=== PATIENT | male | born 1965 | race Caucasian/White ===

== ENCOUNTER 2017-12-18 15:52 | Outpatient (REF) | payer MEDICAID, SELFPAY ==
[2017-12-20 12:30] LABS: Campylobacter PCR SEE COMMENTS; Salmonella PCR SEE COMMENTS; Shiga Toxin PCR SEE COMMENTS; Shigella/Enteroinvasive Ecoli SEE COMMENTS
== END 2017-12-18 15:53 ==
LOC: NCHCN 15:52
PROVIDERS: PCP Nurse Practitioner; Visit Provider Nurse Practitioner
DX: R19.7 Diarrhea, unspecified (principal); K76.0 Fatty (change of) liver, not elsewhere classified
CPT/HCPCS: 87329; 87505; 87177; 87324

== ENCOUNTER 2017-12-31 11:07 | Outpatient (REF) | payer MEDICAID, SELFPAY ==
[2017-12-31 13:49] LABS: Abs Immature Grans 0.04 k/cumm (0.0-0.09); Absolute Basophil Count 0.04 k/cumm (0.0-0.2); Absolute Eosinophil Count 0.58 k/cumm (0.0-0.7); Absolute Monocyte Count 1.12 k/cumm (0.11-0.7); Basophils % 0.3; HCT 43.4 % (40.0-50.0); HGB 14.6 g/dL (13.5-17.5); Immature Grans % 0.3; Lymphocytes % 23.5; Mean Corp. HGB Concentration 33.6 g/dL (32.0-36.0); Mean Corpuscular Hemoglobin 32.5 pg (27.0-33.0); Mean Corpuscular Volume 96.7 fL (80-95); Mean Platelet Volume 9.9 fL (8.0-11.0); Monocytes % 7.7; Neutrophils % 64.2; Platelet Count 285 x1000/uL (130-400); RBC 4.49 m/cumm (4.50-6.00); RBC Distribution Width 13.1 % (11.8-14.1); White Blood Cell Count 14.61 k/cumm (4.4-10.8)
[2017-12-31 13:50] LABS: Absolute Lymphocyte Count 3.43 k/cumm (1.2-3.4); Absolute Neutrophil Count 9.38 k/cumm (1.2-6.7)
[2017-12-31 14:48] LABS: ALT 27 U/L (12-78); AST 31 U/L (15-37); Albumin 4.2 g/dL (3.4-5.0); Alkaline Phosphatase 189 U/L (46-116); Anion Gap 9.8 mmol/L (3-11); BUN 13 mg/dL (7-18); Bilirubin, Total 0.3 mg/dL (0.2-1.0); CO2 26.2 mmol/L (21.0-32.0); CREATININE 0.81 mg/dL (0.70-1.30); Calcium 8.6 mg/dL (8.5-10.1); Chloride 98 mmol/L (98-107); Folate 17.3 ng/mL (8.6-20.0); Glucose 88 mg/dL (70-100); Magnesium 1.9 mg/dL (1.8-2.4); Potassium 4.5 mmol/L (3.5-5.1); Sodium 134 mmol/L (136-145); Total Protein 7.7 g/dL (6.4-8.2); Vitamin B12 457 pg/mL (193-986)
== END 2017-12-31 11:27 ==
LOC: NCHCN 11:07
PROVIDERS: PCP Nurse Practitioner; Visit Provider Nurse Practitioner
DX: F10.20 Alcohol dependence, uncomplicated (principal)
CPT/HCPCS: 80053; 82607; 82746; 83735; 85025

== ENCOUNTER 2018-01-09 14:19 | Outpatient (REF) | payer MEDICAID, SELFPAY ==
[2018-01-09 20:26] LABS: Abs Immature Grans 0.07 k/cumm (0.0-0.09); Absolute Eosinophil Count 0.82 k/cumm (0.0-0.7); Basophils % 0.3; Eosinophils % 4.7; HCT 42.5 % (40.0-50.0); HGB 14.5 g/dL (13.5-17.5); Immature Grans % 0.4; Lymphocytes % 23.1; Mean Corp. HGB Concentration 34.1 g/dL (32.0-36.0); Mean Corpuscular Hemoglobin 33.3 pg (27.0-33.0); Mean Corpuscular Volume 97.5 fL (80-95); Mean Platelet Volume 9.9 fL (8.0-11.0); Monocytes % 7.7; Neutrophils % 63.8; Platelet Count 303 x1000/uL (130-400); RBC 4.36 m/cumm (4.50-6.00); White Blood Cell Count 17.44 k/cumm (4.4-10.8)
[2018-01-09 20:27] LABS: Absolute Basophil Count 0.05 k/cumm (0.0-0.2); Absolute Lymphocyte Count 4.03 k/cumm (1.2-3.4); Absolute Monocyte Count 1.34 k/cumm (0.11-0.7); Absolute Neutrophil Count 11.13 k/cumm (1.2-6.7)
[2018-01-09 20:38] LABS: ALT 43 U/L (12-78); AST 55 U/L (15-37); Alkaline Phosphatase 181 U/L (46-116); Anion Gap 11.3 mmol/L (3-11); BUN 11 mg/dL (7-18); Bilirubin, Total 0.4 mg/dL (0.2-1.0); CO2 25.7 mmol/L (21.0-32.0); Calcium 8.5 mg/dL (8.5-10.1); Chloride 96 mmol/L (98-107); Glucose 80 mg/dL (70-100); Potassium 4.6 mmol/L (3.5-5.1); Sodium 133 mmol/L (136-145); Total Protein 7.3 g/dL (6.4-8.2)
== END 2018-01-09 14:39 ==
LOC: NCHCN 14:19
PROVIDERS: PCP Nurse Practitioner; Visit Provider Nurse Practitioner
DX: R61 Generalized hyperhidrosis (principal)
CPT/HCPCS: 80053; 85025

== ENCOUNTER 2018-01-12 16:47 | Outpatient (CLI) | payer MEDICAID, SELFPAY ==
[2018-01-12 17:56] LABS: Bilirubin Negative (Negative); Blood Negative (Negative); Clarity Clear; Glucose Negative (Negative); Ketones Negative (Negative); Leukocyte Esterase Negative (Negative); Nitrite Negative (Negative); Urobilinogen 0.2 EU/dL (Up TO 0.2)
[2018-01-12 18:52] LABS: Sodium, Urine 46 mmol/L
[2018-01-13 17:28] LABS: Osmolality Serum 321 mos/kg (275-295)
[2018-01-13 17:32] LABS: Osmolality, Urine 256 mos/kg (150-1150)
== END 2018-01-12 17:07 ==
PROVIDERS: PCP Nurse Practitioner; Visit Provider Nurse Practitioner
DX: E87.1 Hypo-osmolality and hyponatremia (principal); D72.829 Elevated white blood cell count, unspecified
CPT/HCPCS: 36410; 83935; 87040; 81003; 83930; 84300; 87086

== ENCOUNTER 2018-01-28 10:27 | Outpatient (CLI) | payer MEDICAID, SELFPAY ==
[2018-01-28 11:28] LABS: Abs Immature Grans 0.04 k/cumm (0.0-0.09); Absolute Basophil Count 0.03 k/cumm (0.0-0.2); Absolute Lymphocyte Count 3.38 k/cumm (1.2-3.4); Basophils % 0.2; Eosinophils % 4.9; HCT 43.5 % (40.0-50.0); Immature Grans % 0.3; Lymphocytes % 25.3; Mean Corp. HGB Concentration 34.5 g/dL (32.0-36.0); Mean Corpuscular Hemoglobin 32.6 pg (27.0-33.0); Mean Corpuscular Volume 94.6 fL (80-95); Mean Platelet Volume 9.3 fL (8.0-11.0); Monocytes % 7.3; Platelet Count 270 x1000/uL (130-400); RBC Distribution Width 12.9 % (11.8-14.1); White Blood Cell Count 13.34 k/cumm (4.4-10.8)
[2018-01-28 11:29] LABS: Absolute Eosinophil Count 0.65 k/cumm (0.0-0.7); Absolute Monocyte Count 0.97 k/cumm (0.11-0.7); Absolute Neutrophil Count 8.27 k/cumm (1.2-6.7)
[2018-01-28 12:31] LABS: ALT 85 U/L (12-78); AST 142 U/L (15-37); Albumin 3.8 g/dL (3.4-5.0); Alkaline Phosphatase 184 U/L (46-116); Anion Gap 10.1 mmol/L (3-11); BUN 10 mg/dL (7-18); Bilirubin, Total 0.4 mg/dL (0.2-1.0); CO2 25.9 mmol/L (21.0-32.0); CREATININE 0.77 mg/dL (0.70-1.30); Calcium 8.3 mg/dL (8.5-10.1); Chloride 100 mmol/L (98-107); GGT 188 U/L (15-85); Glucose 114 mg/dL (70-100); Potassium 4.6 mmol/L (3.5-5.1); Sodium 136 mmol/L (136-145); Total Protein 7.2 g/dL (6.4-8.2)
[2018-01-30 12:37] LABS: TB Interpretation Negative (NEGAT)
== END 2018-01-28 10:47 ==
PROVIDERS: PCP Nurse Practitioner; Visit Provider Nurse Practitioner
DX: R74.8 Abnormal levels of other serum enzymes (principal); R61 Generalized hyperhidrosis; D72.829 Elevated white blood cell count, unspecified; Z12.5 Encounter for screening for malignant neoplasm of prostate
CPT/HCPCS: 36415; 80053; 84153; 82977; 85025; 86480; 87556

== ENCOUNTER 2018-02-05 10:55 | Outpatient (CLI) | payer MEDICAID, SELFPAY ==
--- NOTE | 2018-02-05 08:08 | DI.US_ITS ---
SYMPTOM/DIAGNOSIS: DIARRHEA, LOSS OF APPETITE, HEAVY ALCOHOL USE, R19.7 ABDOMEN AND PELVIC ULTRASOUND: The aorta and vena cava are normal. There is a somewhat enlarged, slightly nodular liver. No focal abnormality is seen. The findings could certainly represent cirrhosis. The gallbladder is unremarkable. There are no stones or ductal dilatation. The head and tail of the pancreas are poorly visualized. The pancreatic body appears intact. The spleen is top limits of normal in size. The kidneys are intact. A small quantity of free fluid is identified in the pelvis. SUMMARY: An enlarged, somewhat nodular liver is demonstrated. The findings consistent with cirrhosis. The spleen is top limits of normal in size. Note is made of a small quantity of free fluid identified in the pelvic region.
== END 2018-02-05 11:15 ==
PROVIDERS: PCP Nurse Practitioner; Visit Provider Surgery
DX: R19.7 Diarrhea, unspecified (principal); R63.0 Anorexia; R16.2 Hepatomegaly with splenomegaly, not elsewhere classified; F10.10 Alcohol abuse, uncomplicated; K74.60 Unspecified cirrhosis of liver
CPT/HCPCS: 76700; 76856

== ENCOUNTER 2018-03-17 01:11 | Outpatient (CLI) | payer MEDICAID, SELFPAY ==
[2018-03-17 08:29] LABS: HCT 39.9 % (40.0-50.0); HGB 13.6 g/dL (13.5-17.5); Mean Corp. HGB Concentration 34.1 g/dL (32.0-36.0); Mean Corpuscular Hemoglobin 31.9 pg (27.0-33.0); Mean Corpuscular Volume 93.7 fL (80-95); Mean Platelet Volume 9.8 fL (8.0-11.0); Platelet Count 308 x1000/uL (130-400); RBC 4.26 m/cumm (4.50-6.00); RBC Distribution Width 13.8 % (11.8-14.1); White Blood Cell Count 14.04 k/cumm (4.4-10.8)
[2018-03-17 08:43] LABS: ALT 33 U/L (12-78); AST 18 U/L (15-37); Albumin 3.7 g/dL (3.4-5.0); Alkaline Phosphatase 141 U/L (46-116); Anion Gap 10.5 mmol/L (3-11); BUN 12 mg/dL (7-18); Bilirubin, Total 0.3 mg/dL (0.2-1.0); CO2 26.5 mmol/L (21.0-32.0); CREATININE 0.71 mg/dL (0.70-1.30); Calcium 8.9 mg/dL (8.5-10.1); Chloride 100 mmol/L (98-107); Glucose 115 mg/dL (70-100); Potassium 4.3 mmol/L (3.5-5.1); Sodium 137 mmol/L (136-145); Total Protein 7.6 g/dL (6.4-8.2)
[2018-03-17 08:44] LABS: Absolute Neutrophil Count 9.55 k/cumm (1.2-6.7)
[2018-03-17 08:45] LABS: Absolute Eosinophil Count 1.12 k/cumm (0.0-0.7); Absolute Lymphocyte Count 2.67 k/cumm (1.2-3.4); Atypical Lymphocytes % 5; Diff Comment Manual Differential; RBC Morphology Normal
[2018-03-17 09:01] LABS: D-Dimer 659 ng/mlFEU (<500)
--- NOTE | 2018-03-17 09:53 | DI.RAD_ITS ---
SYMPTOM/DIAGNOSIS: DYSPNEA ON EXERTION, R06.09 PA AND LATERAL CHEST: Comparison is made with 14 Sep 2017. The lungs are mildly hyperinflated. The lungs are clear. No infiltrate or effusion is seen The heart size is normal. No thoracic compression fractures are seen. IMPRESSION: Mild hyperinflation, otherwise negative.
== END 2018-03-17 01:31 ==
PROVIDERS: PCP Nurse Practitioner; Visit Provider Nurse Practitioner
DX: R06.09 Other forms of dyspnea (principal); E87.1 Hypo-osmolality and hyponatremia; D72.829 Elevated white blood cell count, unspecified
CPT/HCPCS: 36415; 80053; 71046; 85025; 85379

== ENCOUNTER 2018-03-18 01:02 | Outpatient (CLI) | payer MEDICAID, SELFPAY ==
--- NOTE | 2018-03-18 11:00 | DI.CT_ITS ---
SYMPTOM/DIAGNOSIS: DYSPNEA ON EXERTION. ? PE, R06.[address]: CT angiography was performed with multi slice acquisition and multi planar and 3D reconstruction. Comparison is made with 09/08/17. The pulmonary arteries are well opacified with IV contrast. No pulmonary emboli or aortic dissection is seen. Coronary artery calcifications are seen. No pleural or pericardial effusions are identified. The lungs are suboptimally evaluated due to respiratory motion. Emphysematous changes are seen. No focal infiltrate is identified. A small right superior hilar lymph node is unchanged. IMPRESSION: No evidence of pulmonary emboli or other acute abnormality. Mild emphysematous changes.
[2018-03-18] MEDS: Omnipaque 350 MG/ML 100 ML BTL IJ (11:17)
== END 2018-03-18 01:22 ==
PROVIDERS: PCP Nurse Practitioner; Visit Provider Nurse Practitioner
DX: R06.09 Other forms of dyspnea (principal); J43.9 Emphysema, unspecified
CPT/HCPCS: 71275; J3490

== ENCOUNTER 2018-03-26 03:02 | Outpatient (CLI) | payer OTHER, MEDICAID, SELFPAY ==
[2018-03-26] MEDS: Inhaler, Assist Device 1 EACH MC (10:34)
[2018-03-26] MEDS: Albuterol HFA 18 GM 200 PUFF INH IH (10:35)
== END 2018-03-26 03:22 ==
PROVIDERS: PCP Nurse Practitioner; Visit Provider Pediatrics Pediatric Rheumatology
DX: J44.9 Chronic obstructive pulmonary disease, unspecified (principal)
CPT/HCPCS: 94060; 94729

== ENCOUNTER 2018-04-08 12:44 | Outpatient (REF) | payer MEDICAID, SELFPAY ==
[2018-04-08 22:49] LABS: ALT 32 U/L (12-78); AST 20 U/L (15-37); Albumin 3.7 g/dL (3.4-5.0); Alkaline Phosphatase 150 U/L (46-116); Anion Gap 10.3 mmol/L (3-11); BUN 21 mg/dL (7-18); Bilirubin, Total 0.3 mg/dL (0.2-1.0); CO2 26.7 mmol/L (21.0-32.0); CREATININE 0.71 mg/dL (0.70-1.30); Calcium 8.8 mg/dL (8.5-10.1); Chloride 102 mmol/L (98-107); Glucose 152 mg/dL (70-100); Potassium 4.4 mmol/L (3.5-5.1); Sodium 139 mmol/L (136-145); Total Protein 6.9 g/dL (6.4-8.2)
== END 2018-04-08 13:04 ==
LOC: NCHCN 12:44
PROVIDERS: PCP Nurse Practitioner; Visit Provider Nurse Practitioner
DX: E87.1 Hypo-osmolality and hyponatremia (principal)
CPT/HCPCS: 80053

== ENCOUNTER 2018-04-15 08:26 | Outpatient (REF) | payer MEDICAID, SELFPAY ==
[2018-04-15 13:09] LABS: ALT 28 U/L (12-78); AST 25 U/L (15-37); Albumin 3.8 g/dL (3.4-5.0); Alkaline Phosphatase 129 U/L (46-116); Anion Gap 8.2 mmol/L (3-11); BUN 17 mg/dL (7-18); Bilirubin, Total 0.4 mg/dL (0.2-1.0); CO2 28.8 mmol/L (21.0-32.0); CREATININE 0.84 mg/dL (0.70-1.30); Calcium 8.9 mg/dL (8.5-10.1); Chloride 102 mmol/L (98-107); GGT 53 U/L (15-85); Glucose 117 mg/dL (70-100); Potassium 4.5 mmol/L (3.5-5.1); Sodium 139 mmol/L (136-145); Total Protein 7.2 g/dL (6.4-8.2)
== END 2018-04-15 08:46 ==
LOC: NCHCN 08:26
PROVIDERS: PCP Nurse Practitioner; Visit Provider Nurse Practitioner
DX: R74.8 Abnormal levels of other serum enzymes (principal); E87.1 Hypo-osmolality and hyponatremia
CPT/HCPCS: 80053; 82977

== ENCOUNTER 2018-04-20 12:43 | Outpatient (REF) | payer MEDICAID, SELFPAY ==
--- NOTE | 2018-04-20 11:30 | SKI_PTH ---
PATIENT: JOHNATHAN HANKINS LOC: [facility] U#:[id number] AGE/SX: 52/M ROOM: RE04/20/[address]: AUNG Macdonald : 1965 BED: DIS: 04/20/2018 SPEC #: [id number] RECD: 04/20/18 12:56 STATUS: GREY REQ #: [id number] WHIT: 04/20/18 11:[address]: Stacy Stiles DEPT: Surgical Specimen RECD BY: Meagan Lee ENTERED: 04/20/18 12:57 SP TYPE: PHILLIP GRAYSON DR: Margret Townsend Tissues: 1 - SKIN BIOPSY(SHAVE/PUNCH) Procedures: SKIN LEVEL 4 Comments: [id number]
== END 2018-04-20 13:03 ==
LOC: LBN 12:43
PROVIDERS: PCP Nurse Practitioner; Visit Provider Physical Therapy Assistant
DX: L72.3 Sebaceous cyst (principal); L72.8 Other follicular cysts of the skin and subcutaneous tissue
CPT/HCPCS: 88305

== ENCOUNTER 2018-04-24 09:22 | Outpatient (CLI) | payer MEDICAID, SELFPAY ==
[2018-04-24 11:38] LABS: TSH (W/Ref FT4) 1.51 uIU/mL (0.358-3.74)
[2018-04-27 09:29] LABS: HIV-1/2 Ag & Ab Screen Negative (NEGAT)
[2018-04-29 13:00] LABS: TB Interpretation Negative (NEGAT)
== END 2018-04-24 09:42 ==
PROVIDERS: PCP Nurse Practitioner; Visit Provider Nurse Practitioner
DX: R61 Generalized hyperhidrosis (principal)
CPT/HCPCS: 36415; 87389; 84443; 86480

== ENCOUNTER 2018-04-29 10:40 | Day surgery (SDC) | payer MEDICAID, SELFPAY ==
[2018-04-29 10:51] VITALS: BP 123/75; PULSE 75; RESP 16; TEMP 35.6; O2SAT 94
[2018-04-29] MEDS: Lactated Ringers 1,000 ML 30 ML IV (11:18)
--- NOTE | 2018-04-29 12:02 | W.PM.HP.N ---
Date of service: 04/29/18 Time of Service: 12:03 Assessment and Plan (1) Diarrhea: Start date: 04/29/18 Start time: 12:05 Current visit: Yes Status: Acute colonoscopy Qualifiers: Diarrhea type: unspecified type Qualified Code(s): R19.7 - Diarrhea, unspecified (2) Hemoptysis: Start date: 04/29/18 Start time: 12:05 Current visit: Yes Status: Acute egd History of Present Illness Chief Complaint: diarrhea/hemoptosis Review of Systems Review of Systems All systems reviewed & are unremarkable except as noted in HPI and below PFSH Medical History Tobacco dependence Anxiety and depression Alcohol abuse Coronary artery disease Diarrhea (Acute) Cardiomyopathy (Acute) COPD, mild (Acute) Alcoholic hepatitis (Acute) Hypertension (Chronic) Oxygen desaturation (Acute) Allergic rhinitis (Acute) Dysphagia (Acute) Elevated alkaline phosphatase level (Acute) Hyponatremia (Acute) Insomnia (Acute) Leukocytosis (Acute) Dyslipidemia Surgical History S/P drug eluting coronary stent placement (Resolved) H/O colonoscopy with polypectomy (Resolved 03/31/15) S/P coronary artery stent placement (Inactive) Family History Mother No problems noted. Father No problems noted. Social History Smoking/Tobacco Use Status: Current every day Meds Home Medications Medication Instructions Recorded Confirmed Type aspirin [Aspirin Low-Strength] 1 tab PO DAILY 09/14/17 04/29/18 History sertraline 125 mg PO HS 09/14/17 04/29/18 History thiamine mononitrate (vit B1) 100 mg PO QAM #30 tab 09/14/17 04/29/18 Rx [Vitamin B-1 (mononitrate)] albuterol sulfate HFA 90 2 puff IH QID PRN 01/16/18 04/29/18 History mcg/actuation aerosol inhaler atorvastatin 80 mg tablet 80 mg PO DAILY 01/16/18 04/29/18 History loperamide 2 mg capsule 2 mg PO Q4H PRN 01/16/18 04/29/18 History mometasone 50 mcg/actuation nasal 2 spray EVELIO BID 01/16/18 04/29/18 History spray bisacodyl 5 mg tablet,delayed 5 mg PO ONCE #4 tab 03/27/18 04/29/18 Rx release polyethylene glycol 3350 17 255 g PO ONCE #255 gm 03/27/18 04/29/18 Rx gram/dose oral powder qiriatecijn-ibmbvwshl-pmahupmb 1 inh INHALATION DAILY 04/27/18 04/29/18 History [Trelegy Ellipta] losartan 50 mg PO DAILY 04/27/18 04/29/18 History metoprolol tartrate 50 mg PO BID 04/27/18 04/29/18 History mirtazapine 15 mg PO HS 04/27/18 04/29/18 History am-llcx-eihjx-lycopene-ginkgo 1 tab PO DAILY 04/27/18 04/29/18 History [One-A-Day Men 50 Plus (ginkgo)] omeprazole 40 mg PO DAILY 04/27/18 04/29/18 History Allergies Allergy/AdvReac Type Severity Reaction Status Date / Time clonidine AdvReac Verified 04/29/18 11:01 Exam Const General: cooperative Chest Chest: normal inspection of the chest Other: CTA Cardio Jugular venous pressure: no JVD Palpation: normal PMI Rate: regular rate Rhythm: regular rhythm GI Inspection: normal to inspection Palpation: soft Percussion: normal to percussion Auscultation: normal bowel sounds Results Last Vital Signs Temp 35.6 C L 04/29/18 10:51 Pulse 75 04/29/18 10:51 Resp 16 04/29/18 10:51 BP 123/75 04/29/18 10:51 Pulse Ox 94 L 04/29/18 10:51
[2018-04-29] MEDS: Lidocaine 2% Viscous 15 ML CUP (12:15)
--- NOTE | 2018-04-29 12:54 | COLE_ITS ---
Addenda After informed consent was obtained the patient was take to the procedure room and placed in a supine position. Monitors were applied and a time out was done. The patients name, date of , procedure type, allergies to medications and metal in their body was reviewed. A bite block was placed and the patient was sedated. Once sedated and comfortable the gastroscope was advanced through the oropharynx which was grossly normal into the esophagus. The proximal and mid- esophagus were normal. In the distal esophagus there was nothing noted. The scope was advanced into the stomach and through the pylorus into the 3rd portion of the duodenum. The duodenum was noted to be normal. Biopsies were done. The scope was retracted back into the stomach and biopsies were done to rule out H. pylori. There were no ulcers. The scope was retroflexed. The cardia and fundus were noted to be normal. There was no hiatal hernia noted. The scope was retracted back into the esophagus and biopsies were done of the GE junction to rule out Prado's. The Z line was regular. The GE junction was at normal. The scope was removed and the patient was woken up and taken back to [facility] in stable condition. Follow up: one week Addendum dictated by Hayden Lr III, DO 04/29/18 1312 <Electronically signed by Hayden Lr III DO> 04/29/18 1312 Transcribed By: Hayden Lr III 04/29/182 Cosigned by Date of service: 04/29/18 Time of Service: 12:54 Operative Note DATE OF PROCEDURE: 04/29/18 PRE-OP DIAGNOSIS: hemoptysis/diarrhea/screen POST-OP DIAGNOSIS: same PROCEDURE: upper endoscopy/Colonoscopy SURGEON: Hayden Lr III ASSISTING SURGEON: Rola Ace ANESTHESIA: MAC ESTIMATED BLOOD LOSS: 0 PATHOLOGY: sent COMPLICATIONS: None Findings: upper scope negative to the third portion colonoscopy competed to 60cm unable to precede due to poor prep Procedure Description: After informed consent was obtained the patient was taken to the procedure room and placed in a left decubitous position. Monitors were applied and a time out was done. The patients name, date of , procedure, allergies to medications and metal in their body was reviewed. The patient was then sedated. Once sedated and comfortable a rectal exam was done. External exam was normal. Internal exam revealed a normal sphincter tone and no palpable masses. The prostate tract. The scope was then introduced and retrofelexed. no internal hemorrhoids were identified. The scope was then advanced to the decending colon multiple diverticulum found with difficulty due to poor prep. The procedure was stopped due to the poor prep. The scope was removed and the patient was woken up and taken back to [facility] day surgery in stable condition. The patient tolerated the procedure well and there were no immediate complications. Follow up: The patient should follow up in 1week to discuss two day prep for the colonoscopy. unless they develop changes in bowel habits or other new gastrointestinal complaints.
--- NOTE | 2018-04-29 13:03 | ROE_ITS ---
Date of service: 04/29/18 Time of Service: 12:54 Operative Note DATE OF PROCEDURE: 04/29/18 PRE-OP DIAGNOSIS: hymoptosis/diarrhea/screen POST-OP DIAGNOSIS: same PROCEDURE: upper endoscopy/Colonoscopy SURGEON: Hayden Lr III ASSISTING SURGEON: Rola Ace ANESTHESIA: MAC ESTIMATED BLOOD LOSS: 0 PATHOLOGY: none sent COMPLICATIONS: None Findings: upper scope negative to the third portion colonoscopy competed to 60cm unable to precede due to poor prep Procedure Description: After informed consent was obtained the patient was taken to the procedure room and placed in a left decubitous position. Monitors were applied and a time out was done. The patients name, date of , procedure, allergies to medications and metal in their body was reviewed. The patient was then sedated. Once sedated and comfortable a rectal exam was done. External exam was normal. Internal exam revealed a normal sphincter tone and no palpable masses. The prostate tract. The scope was then introduced and retrofelexed. no internal hemorrhoids were identified. The scope was then advanced to the decending colon multiple diverticulum found with difficulty due to poor prep. The procedure was stopped due to the poor prep. The scope was removed and the patient was woken up and taken back to Same day surgery in stable condition. The patient tolerated the procedure well and there were no immediate complications. Follow up: The patient should follow up in 1week to discuss two day prep for the colonoscopy. unless they develop changes in bowel habits or other new gastrointe stinal complaints.
[2018-04-29 13:24] VITALS: BP 124/71; PULSE 79; RESP 18; TEMP 36.1; O2SAT 97
== END 2018-04-29 14:08 | disposition home or self-care (01) ==
PROVIDERS: PCP Nurse Practitioner; Visit Provider Surgery
PROC: (CPT 43235; principal; 2018-04-29 11:45)
DX: R04.2 Hemoptysis (principal); R19.7 Diarrhea, unspecified; Z12.11 Encounter for screening for malignant neoplasm of colon
CPT/HCPCS: 43235; 45378; 99221; J2250

== ENCOUNTER 2018-05-04 15:16 | Outpatient (REF) | payer MEDICAID, SELFPAY ==
[2018-05-04 22:56] LABS: Hemoglobin A1C 6.2 % (4.5-6.2)
== END 2018-05-04 15:36 ==
LOC: NCHCN 15:16
PROVIDERS: PCP Nurse Practitioner; Visit Provider Nurse Practitioner
DX: R73.03 Prediabetes (principal)
CPT/HCPCS: 83036

== ENCOUNTER 2018-05-06 00:22 | Outpatient (CLI) | payer MEDICAID, SELFPAY ==
--- NOTE | 2018-05-06 09:35 | DI.RAD_ITS ---
SYMPTOM/DIAGNOSIS: LOW BACK PAIN, M54.5 LUMBAR SPINE: The vertebral bodies are well maintained in height. There is marked narrowing of the L 5-S 1 disc space. Endplate osteophytes and sclerosis are seen. The remaining disc spaces are well maintained. Small endplate osteophytes are seen at L 3-4 and L 4-5. No spondylolysis or spondylolisthesis is seen. There is no scoliosis. IMPRESSION: Degenerative disc changes at L 5-S 1.
--- NOTE | 2018-05-06 11:12 | DI.CT_ITS ---
SYMPTOMS/DIAGNOSIS: NIGHT SWEATS, R61, DIARRHEA, R19.7, LIVER STEATOSIS, K76.0 CT OF THE ABDOMEN AND PELVIS: Comparison is made with abdomen ultrasound dated . Images were performed from the lung bases through the ischial tuberosities after IV and oral contrast. The lung bases are clear. The liver is mildly enlarged and shows mild diffuse fatty infiltration. No focal liver lesions or biliary dilatation is seen. The spleen, gallbladder, pancreas, adrenals and kidneys are unremarkable. The prostate appears normal in size. The bladder is unremarkable. There is a fatty containing left inguinal hernia. The appendix appears normal. Diverticula are seen in the descending and more prominently in the sigmoid colon. There is some muscular hypertrophy. There are no surrounding inflammatory changes. No mass is visible. There is no bowel dilatation. The small bowel is unremarkable. The aorta shows mild calcification and is normal in diameter. IMPRESSION: Mild fatty infiltration of the liver. Diverticulosis, most prominent in the sigmoid colon. Fatty containing left inguinal hernia. No acute abnormality is identified.
[2018-05-06] MEDS: Omnipaque 350 MG/ML 50 ML BTL PO (11:18)
[2018-05-06] MEDS: Breeza Beverage 473 ML BTL PO ×2 (11:18→11:19)
[2018-05-06] MEDS: Omnipaque 350 MG/ML 100 ML BTL IV (11:19)
== END 2018-05-06 00:42 ==
PROVIDERS: PCP Nurse Practitioner; Visit Provider Nurse Practitioner
DX: R61 Generalized hyperhidrosis (principal); R19.7 Diarrhea, unspecified; K76.0 Fatty (change of) liver, not elsewhere classified; K57.30 Diverticulosis of large intestine without perforation or abscess without bleeding; K40.90 Unilateral inguinal hernia, without obstruction or gangrene, not specified as recurrent
CPT/HCPCS: 72110; 74177; J3490; Q9967

== ENCOUNTER 2018-05-26 00:54 | Outpatient (CLI) | payer MEDICAID, SELFPAY ==
--- NOTE | 2018-05-26 08:59 | DI.MRI_ITS ---
SYMPTOMS/DIAGNOSIS: LOW BACK PAIN, M54.5 MRI OF THE LUMBAR SPINE: T 1, T 2 and STIR sagittal, T 1 coronal and T 1 and T 2 axial sequences were performed. Comparison is made with plain films dated . The T 12 - L 1 through L 2 - 3 discs appear intact. There is mild loss of disc height at L 3 - 4 and mild concentric disc bulging. At L 4 - 5, there is only minimal disc bulging laterally and mild facet degenerative changes causing mild bilateral neural foraminal narrowing. At L 5 - S 1, there is marked loss of disc height, endplate osteophytes and degenerative signal changes in the endplates. There is bilateral neural foraminal narrowing secondary to a combination of degenerative changes. There is increased epidural fat seen within the central canal at this level. IMPRESSION: Degenerative disc changes, greatest at L 5 - S 1, causing bilateral neural foraminal narrowing.
== END 2018-05-26 01:14 ==
PROVIDERS: PCP Nurse Practitioner; Visit Provider Nurse Practitioner
DX: M54.5 Low back pain (principal); M51.37 Other intervertebral disc degeneration, lumbosacral region
CPT/HCPCS: 72148

== ENCOUNTER 2018-07-10 11:30 | Outpatient (REF) | payer MEDICAID, SELFPAY ==
[2018-07-10 17:54] LABS: Abs Immature Grans 0.04 k/cumm (0.0-0.09); Absolute Basophil Count 0.05 k/cumm (0.0-0.2); Absolute Eosinophil Count 0.69 k/cumm (0.0-0.7); Absolute Lymphocyte Count 2.84 k/cumm (1.2-3.4); Absolute Monocyte Count 1.02 k/cumm (0.11-0.7); Absolute Neutrophil Count 5.66 k/cumm (1.2-6.7); Basophils % 0.5; Eosinophils % 6.7; HGB 15.8 g/dL (13.5-17.5); Immature Grans % 0.4; Lymphocytes % 27.6; Mean Corp. HGB Concentration 33.6 g/dL (32.0-36.0); Mean Corpuscular Hemoglobin 30.5 pg (27.0-33.0); Mean Corpuscular Volume 90.7 fL (80-95); Mean Platelet Volume 11.2 fL (8.0-11.0); Monocytes % 9.9; Neutrophils % 54.9; Platelet Count 265 x1000/uL (130-400); RBC 5.18 m/cumm (4.50-6.00); RBC Distribution Width 13.9 % (11.8-14.1)
[2018-07-10 18:16] LABS: ALT 36 U/L (12-78); AST 21 U/L (15-37); Albumin 4.2 g/dL (3.4-5.0); Alkaline Phosphatase 146 U/L (46-116); BUN 14 mg/dL (7-18); Bilirubin, Total 0.3 mg/dL (0.2-1.0); CREATININE 0.77 mg/dL (0.70-1.30); Calcium 9.4 mg/dL (8.5-10.1); Chloride 100 mmol/L (98-107); Glucose 109 mg/dL (70-100); Potassium 4.5 mmol/L (3.5-5.1); Sodium 137 mmol/L (136-145); Total Protein 7.6 g/dL (6.4-8.2)
[2018-07-10 18:18] LABS: Hemoglobin A1C 6.2 % (4.5-6.2)
== END 2018-07-10 11:50 ==
LOC: NCHCN 11:30
PROVIDERS: PCP Nurse Practitioner; Visit Provider Nurse Practitioner
DX: D72.9 Disorder of white blood cells, unspecified (principal); E87.1 Hypo-osmolality and hyponatremia; R74.8 Abnormal levels of other serum enzymes; R53.83 Other fatigue; R73.03 Prediabetes
CPT/HCPCS: 80053; 83036; 85025

== ENCOUNTER 2018-08-13 14:35 | Emergency (ER) | payer MEDICAID, SELFPAY ==
[2018-08-13 14:47] VITALS: BP 184/101; PULSE 123; RESP 18; TEMP 36.5; O2SAT 93
--- NOTE | 2018-08-13 15:06 | ED.GENADUL_ITS ---
Discharge Plan Disposition Patient Disposition: HOME Condition: Fair Discharge Details Chief Complaint: GenMedical Clinical Impression: Alcohol abuse Primary Care Provider: Margret Townsend ED Provider: Justine Adan Home Meds and New Rx's Prescriptions: Continued bisacodyl [Dulcolax (bisacodyl)] 5 mg tablet,delayed release (DR/EC) 5 mg PO ONCE Qty: 4 RF: 0 polyethylene glycol 3350 17 gram/dose powder 255 g PO ONCE Qty: 255 RF: 0 loperamide [Imodium A-D] 2 mg capsule 2 mg PO Q4H PRNRF: 0 mometasone [Nasonex] 50 mcg/actuation spray,non-aerosol 2 spray EVELIO BID RF: 0 ProAir HFA 90 mcg/actuation HFA aerosol inhaler 2 puff IH QID PRNRF: 0 atorvastatin 80 mg tablet 80 mg PO DAILY RF: 0 aspirin [Aspirin Low-Strength] 81 MG tablet,chewable 1 tab PO DAILY RF: 0 sertraline 50 MG tablet 125 mg PO HS RF: 0 thiamine mononitrate (vit B1) [Vitamin B-1 (mononitrate)] 100 MG tablet 100 mg PO QAM Qty: 30 RF: 2 omeprazole 40 mg Capsule,Delayed Release(Dr/Ec) 40 mg PO DAILY RF: 0 mirtazapine 15 mg Tablet 15 mg PO HS RF: 0 One-A-Day Men 50 Plus (ginkgo) 400-300-120 mcg-mcg-mg Tablet 1 tab PO DAILY RF: 0 Trelegy Ellipta 100-62.5-25 mcg Blister With Device 1 inh INHALATION DAILY RF: 0 metoprolol tartrate 50 mg Tablet 50 mg PO BID RF: 0 losartan 50 mg Tablet 50 mg PO DAILY RF: 0 Discharge Instructions Instructions: Abuse of Alcohol (ED) Additional Instructions: We have not yet completed your evaluation here today. You are choosing to leave prior to this completion. If you wish to continue with this evaluation please return anytime. Please keep your mental health appointment tomorrow. Please call detox facilities to arrange for inpatient help with alcohol withdrawal. If you develop any new or worsening symptoms please seek care urgently once again. Referrals: Margret Townsend [Primary Care Provider] - Discharge Data Discharge Date/Time-TO BE ENTERED AT DEPARTURE: 08/13/18 17:05 Medical Decision Making <AUNG Phillips - Last Filed: 08/15/18 15:44> This is a 53-year-old male history of coronary artery disease status post stent, hypertension, hyperlipidemia, depression, alcohol abuse. Presenting today with c/c of ETOH abuse. Reports drinking 30 rack of beer per day at baseline. Last drank 30 minutes prior to arrival. He has a substance abuse counselor. He is also reporting concern around depressive thoughts. States that his father and brother and that he has a poor relationship with his mother. He states that this is difficult for him but he denies thoughts of self harm. Also endorsing SOB and CP. States that CP has been intermittent and unchanged for hte past 4 years. Has COPD and state that he has had shortness of breath that has increased over the past few months. D\enies SOB, CP or any discomfort at this time. Endorses nausea for the past few days with dry heaving but no vomiting. Denies change in urinary or bowel habits. While patient admits to recent alcohol consumption, he appears clinically sober. REG CAMARILLO evaluated the patient. Despite him being non suicidal at this time, he is high risk with his depression and concominant ETOH abuse. Sergio evaluated the patient and he does not feel that he is not at acute risk for mental health emergency. Patient has appointmnet with counselor tomorrow. They will concentrate tomorrow on the mental health concerns tomorrow. Will also discuss possibility of detox at that time. He is aware that he will need to call them himself. Labs significat for elevation of the AST and alk phos which is typical for the patient on chart review. Serina has not yet undergone his CXR. However, he is requesting discharge as he needs to catch the last bus home. He is requesting dsicharge. Patient did nto come in with any specific physical concerns, nor does he seem to be a risk to himself or others. While he has been drinking, he is appropriate and seems to have competance to make this decision. He spoke with REG CAMARILLO and has contact information for places that may take him for withdrawal. Patient is not actively withdrawing. He has never had DT. He is aware that with his amount of alcohol conumption, it would be safest for him to be weaned at appropriate facility. Discussed new/worsening symptoms and when to seek care urgently once again. All of his questions and concerns were addressed, he is in agreement with this plan. <Norm Ogden MD - Last Filed: 08/13/18 18:37> ECG Data Attestation: I personally reviewed and interpreted this ECG (s) as follows: Prior ECG tracings: available for review Interpretation: sinus rhythm, rate of 106, pr 154, lbbb, no changes from prior ekg HPI <AUNG Phillips - Last Filed: 08/15/18 15:44> General Mode of arrival: ambulatory . Date/Time Provider Initiated Documentation: 08/13/18 15:04 . Limitations to Documentation: no limitations . Information obtained by: patient and RN notes reviewed . HPI Narrative: Patient is a 53-year-old male presents today with chief complaint of alcohol abuse. He reports he has been drinking heavily for the past few months. He was in rehab 3 months ago and states that he began drinking again approximately 3 days after his stay in rehab. He reports his social situation has been driving this primarily. He denies suicidal or homicidal ideation. Denies any hallucinations. Is presenting today as he wishes to detox. He is a [facility] human services patient, season primarily to help with substance abuse. He is scheduled to see a mental health counselor tomorrow. Related Data Home Medications Medication Instructions Recorded Confirmed aspirin [Aspirin Low-Strength] 1 tab PO DAILY 09/14/17 04/30/18 sertraline 125 mg PO HS 09/14/17 04/30/18 thiamine mononitrate (vit B1) 100 mg PO QAM #30 tab 09/14/17 04/30/18 [Vitamin B-1 (mononitrate)] albuterol sulfate HFA 90 2 puff IH QID PRN 01/16/18 04/30/18 mcg/actuation aerosol inhaler atorvastatin 80 mg tablet 80 mg PO DAILY 01/16/18 04/30/18 loperamide 2 mg capsule 2 mg PO Q4H PRN 01/16/18 04/30/18 mometasone 50 mcg/actuation nasal 2 spray EVELIO BID 01/16/18 04/30/18 spray bisacodyl 5 mg tablet,delayed 5 mg PO ONCE #4 tab 03/27/18 04/30/18 release polyethylene glycol 3350 17 255 g PO ONCE #255 gm 03/27/18 04/30/18 gram/dose oral powder One-A-Day Men 50 Plus (ginkgo) 1 tab PO DAILY 04/27/18 04/30/18 Trelegy Ellipta 1 inh INHALATION DAILY 04/27/18 04/30/18 losartan 50 mg PO DAILY 04/27/18 04/30/18 metoprolol tartrate 50 mg PO BID 04/27/18 04/30/18 mirtazapine 15 mg PO HS 04/27/18 04/30/18 omeprazole 40 mg PO DAILY 04/27/18 04/30/18 Previous Rx's Medication Instructions Recorded thiamine mononitrate (vit B1) 100 mg PO QAM #30 tab 09/14/17 [Vitamin B-1 (mononitrate)] bisacodyl 5 mg tablet,delayed 5 mg PO ONCE #4 tab 03/27/18 release polyethylene glycol 3350 17 255 g PO ONCE #255 gm 03/27/18 gram/dose oral powder Allergies Allergy/AdvReac Type Severity Reaction Status Date / Time clonidine AdvReac Verified 08/13/18 14:52 General Stated Complaint: GenMedical AMINA: 3 Review of Systems <AUNG Phillips - Last Filed: 08/15/18 15:44> Constitutional Reports as per HPI, Denies chills, Denies fatigue, Denies fever(s), Denies headache(s) and Denies weakness Eyes Denies change in vision ENT Denies headache(s) Cardiovascular Reports as per HPI, Reports chest pain (Intermittent chest pain for the past few years), Denies syncope, Denies rapid heart rate, Denies lightheadedness, Denies radiating jaw, neck or arm pain, Denies dyspnea and Denies dyspnea on exertion Respiratory Reports as per HPI, Denies cough, Denies dyspnea and Denies dyspnea on exertion Gastrointestinal Reports as per HPI, Denies abdominal pain, Denies change in bowel habits, Denies nausea and Denies vomiting Genitourinary Denies system reviewed and no additional complaints, except as docu (denies any change in urinary habits) Musculoskeletal Denies abnormal gait Integumentary/Breasts Reports as per HPI and Denies rash Neurologic Denies abnormal movements, Denies abnormal speech, Denies abnormal gait, Denies confusion, Denies syncope, Denies headache(s), Denies paresthesias and Denies weakness Psychiatric Reports abnormal sleep pattern, Denies confusion, Reports depression, Denies auditory hallucinations, Denies hopelessness, Denies irritability, Denies visual hallucinations, Denies hallucinations, Denies homicidal ideation and Denies suicidal ideation Endocrine Denies fatigue PFSH <AUNG Phillips - Last Filed: 08/15/18 15:44> Medical History Hemoptysis (Acute) Tobacco dependence Anxiety and depression Alcohol abuse Coronary artery disease Diarrhea (Acute) Cardiomyopathy (Acute) COPD, mild (Acute) Alcoholic hepatitis (Acute) Hypertension (Chronic) Oxygen desaturation (Acute) Allergic rhinitis (Acute) Dysphagia (Acute) Elevated alkaline phosphatase level (Acute) Hyponatremia (Acute) Insomnia (Acute) Leukocytosis (Acute) Dyslipidemia Surgical History S/P drug eluting coronary stent placement (Resolved) H/O colonoscopy with polypectomy (Resolved 03/31/15) H/O colonoscopy (Acute 04/29/18) History of esophagogastroduodenoscopy (EGD) (Acute 04/29/18) S/P coronary artery stent placement (Inactive) Social History Smoking/Tobacco Use Status: Current every day Alcohol Intake: current Alcohol Intake frequency: 0-2 drinks per day Alcohol type: beer Drug use: Never Do you feel safe at home: Yes Do you feel safe in your relationship?: Yes Exam <AUNG Phillips - Last Filed: 08/15/18 15:44> Const General: cooperative, healthy appearing, comfortable, no acute distress, well developed and well groomed Nutritional Appearance: average body habitus and well nourished Orientation: alert, awake and oriented x3 Eyes General: appearance normal, both eyes and all related structures Resp Effort & Inspection: normal respiratory effort, able to speak in complete sentences and no respiratory distress Auscultation: clear to auscultation bilaterally, no rales, no rhonchi and no wheezes Cardio Rate: regular rate Rhythm: regular rhythm Heart Sounds: S1 normal and S2 normal GI Inspection: normal to inspection Palpation: soft, no hepatosplenomegaly, not firm, no guarding and nontender Skin General skin exam: no rashes or lesions noted Trauma: no lacerations or abrasions Neuro General: alert and awake Cognition: normal cognition Speech: speech normal Gait: normal gait Psych Appearance: grossly normal and well kempt Mental Status: mental status grossly normal Speech and Movement: speech and movement normal Mood: congruent mood Affect: normal affect Attitude: cooperative Thought Process: normal Thought Content: normal Insight: insight good Judgment: judgment good Course <AUNG Phillips - Last Filed: 08/15/18 15:44> Vital Signs Temperature 36.5 C 08/13/18 14:47 Pulse 123 H 08/13/18 14:47 Respiratory Rate 18 08/13/18 14:47 Blood Pressure 184/101 H 08/13/18 14:47 Pulse Oximetry 93 L 08/13/18 14:47 Temperature 36.5 C 08/13/18 14:47 Temperature Source Skin 08/13/18 14:47 Pulse 123 H 08/13/18 14:47 Respiratory Rate 18 08/13/18 14:47 Blood Pressure 184/101 H 08/13/18 14:47 Pulse Oximetry 93 L 08/13/18 14:47 Oxygen Delivery Method Room Air 08/13/18 14:47 Oxygen Flow Rate 0 08/13/18 14:47
[2018-08-13] MEDS: Normal Saline 1,000 ML 1000 ML IV (15:09)
[2018-08-13 15:15] LABS: Abs Immature Grans 0.03 k/cumm (0.0-0.09); Absolute Basophil Count 0.03 k/cumm (0.0-0.2); Absolute Eosinophil Count 0.35 k/cumm (0.0-0.7); Absolute Lymphocyte Count 3.38 k/cumm (1.2-3.4); Absolute Monocyte Count 0.63 k/cumm (0.11-0.7); Basophils % 0.3; Eosinophils % 3.9; HCT 46.3 % (40.0-50.0); HGB 16.4 g/dL (13.5-17.5); Immature Grans % 0.3; Lymphocytes % 37.9; Mean Corp. HGB Concentration 35.4 g/dL (32.0-36.0); Mean Corpuscular Hemoglobin 30.9 pg (27.0-33.0); Mean Corpuscular Volume 87.2 fL (80-95); Mean Platelet Volume 9.4 fL (8.0-11.0); Monocytes % 7.1; Neutrophils % 50.5; Platelet Count 175 x1000/uL (130-400); RBC 5.31 m/cumm (4.50-6.00); RBC Distribution Width 15.5 % (11.8-14.1); White Blood Cell Count 8.92 k/cumm (4.4-10.8)
[2018-08-13 15:26] VITALS: RESP 18
[2018-08-13 15:26] LABS: Ammonia 27 umol/L (11-32)
[2018-08-13 15:38] LABS: ALT 51 U/L (12-78); AST 75 U/L (15-37); Alkaline Phosphatase 145 U/L (46-116); Anion Gap 15.2 mmol/L (3-11); BUN 7 mg/dL (7-18); Bilirubin, Total 0.5 mg/dL (0.2-1.0); CO2 22.8 mmol/L (21.0-32.0); CREATININE 0.69 mg/dL (0.70-1.30); Calcium 8.1 mg/dL (8.5-10.1); Chloride 99 mmol/L (98-107); Glucose 122 mg/dL (70-100); Potassium 3.6 mmol/L (3.5-5.1); Sodium 137 mmol/L (136-145); TSH 1.78 uIU/mL (0.358-3.74); Total Protein 7.9 g/dL (6.4-8.2)
[2018-08-13 15:41] LABS: ETHANOL BLOOD 339.3 mg/dL (<3)
[2018-08-13 15:45] LABS: Magnesium 1.7 mg/dL (1.8-2.4)
[2018-08-13 15:53] LABS: Troponin I 0.03 ng/mL (0.00-0.06)
--- NOTE | 2018-08-13 16:55 | PDOC.MHCN ---
Date of service: 08/13/18 Time of Service: 16:55 Mental Health Crisis Note Presenting Issue How did you arrive at the ED and why did you come: Patient came to emergency room due to his frustration with not being able to stop drinking. He presented with signs of depression and reported some symptoms. This prompted a mental health screening to be done at [facility]. Precipitating Factors Lawrence denies he is suicidal or homicidal at this time. He does not report a history of suicidal or homicidal ideation. He expresses a lot of guilt over his drinking. He also disclosed of a history of attachment issues with family and social supports. He acknowledged in discussion today that his drinking levels make it difficult for him to engage in mental health treatment consistently. He identified resources in the community he is accessing and having this conversation with much more thoroughly. He has appointment tomorrow and will be in touch with his counselor from [facility] to help him determine if he can do the detox outpatient or inpatient. Disposition BEHAVIOR: cooperative/reflective, thought process slightly condensed, but he is willing to access resources identified EYE CONTACT: good MOOD: depressed AFFECT: constricted APPETITE: good SLEEP(trouble falling/staying asleep: fair Plan Lawrence will be released on his own accord. He reports he is not going to drink tonight. He has an appointment with his physician and a counselor at [facility]. He also has a co-occurring/dually licensed counselor he sees regularly that he will coordinate services with and/or discuss the need for inpatient. From this, he will decide the best way to detox that will help him address secondary issues of depression and attachment issues more thoroughly in ways that can help him prevent further symptoms of substance use disorder and/or depression.
--- NOTE | 2018-08-13 17:07 | PDOC.MHCN_ITS ---
Date of service: 08/13/18 Time of Service: 16:55 Mental Health Crisis Note Presenting Issue How did you arrive at the ED and why did you come: Patient came to emergency room due to his frustration with not being able to stop drinking. He presented with signs of depression and reported some symptoms. This prompted a mental health screening to be done at [facility]. Precipitating Factors Lawrence denies he is suicidal or homicidal at this time. He does not report a history of suicidal or homicidal ideation. He expresses a lot of guilt over his drinking. He also disclosed of a history of attachment issues with family and social supports. He acknowledged in discussion today that his drinking levels make it difficult for him to engage in mental health treatment consistently. He identified resources in the community he is accessing and having this conversation with much more thoroughly. He has appointment tomorrow and will be in touch with his counselor from [facility] to help him determine if he can do the detox outpatient or inpatient. Disposition BEHAVIOR: cooperative/reflective, thought process slightly condensed, but he is willing to access resources identified EYE CONTACT: good MOOD: depressed AFFECT: constricted APPETITE: good SLEEP(trouble falling/staying asleep: fair Plan Lawrence will be released on his own accord. He reports he is not going to drink tonight. He has an appointment with his physician and a counselor at [facility]. He also has a co-occurring/dually licensed counselor he sees regularly that he will coordinate services with and/or discuss the need for inpatient. From this, he will decide the best way to detox that will help him address secondary issues of depression and attachment issues more thoroughly in ways that can help him prevent further symptoms of substance use disorder and/or depression.
== END 2018-08-13 17:05 | disposition home or self-care (01) ==
PROVIDERS: Emergency Provider Physician Assistant; PCP Nurse Practitioner
DX: F10.10 Alcohol abuse, uncomplicated (principal); F32.9 Major depressive disorder, single episode, unspecified; J44.9 Chronic obstructive pulmonary disease, unspecified; I10 Essential (primary) hypertension; F17.210 Nicotine dependence, cigarettes, uncomplicated
CPT/HCPCS: 36415; 80053; 93005; 96360; 99284; 80320; 82140; 83735; 84443; 84484; 85025; 93010

== ENCOUNTER 2018-12-03 11:48 | Emergency (ER) | payer MEDICAID, SELFPAY ==
[2018-12-03] VITALS (13 sets, daily range): BP systolic 77–119; BP diastolic 35–59; PULSE 80–95; RESP 13–23; TEMP 36.6; O2SAT 89–97
--- NOTE | 2018-12-03 12:06 | NUR.NOTE ---
Nursing Note: [facility] paged
--- NOTE | 2018-12-03 12:07 | ED.GENADUL_ITS ---
Discharge Plan Disposition Patient Disposition: HOME Condition: Stable Discharge Details Chief Complaint: ETOHWithdr Clinical Impression: Alcohol abuse, Dehydration Primary Care Provider: Margret Townsend ED Provider: Norm Ogden Seeley Meds and New Rx's Prescriptions: No Action loperamide [Imodium A-D] 2 mg capsule 2 mg PO Q4H PRNRF: 0 mometasone [Nasonex] 50 mcg/actuation spray,non-aerosol 2 spray EVELIO BID RF: 0 albuterol sulfate [ProAir HFA] 90 mcg/actuation HFA aerosol inhaler 2 puff IH QID PRNRF: 0 atorvastatin 80 mg tablet 80 mg PO DAILY RF: 0 lidocaine 3 % Cream 1 applic TOPICAL TID RF: 0 naproxen 500 mg Tablet 500 mg PO BID PRNRF: 0 aspirin [Aspirin Low-Strength] 81 MG tablet,chewable 1 tab PO DAILY RF: 0 sertraline 50 MG tablet 150 mg PO HS RF: 0 thiamine mononitrate (vit B1) [Vitamin B-1 (mononitrate)] 100 MG tablet 100 mg PO QAM Qty: 30 RF: 2 omeprazole 40 mg Capsule,Delayed Release(Dr/Ec) 40 mg PO DAILY RF: 0 mirtazapine 15 mg Tablet 15 mg PO HS RF: 0 One-A-Day Men 50 Plus (ginkgo) 400-300-120 mcg-mcg-mg Tablet 1 tab PO DAILY RF: 0 Trelegy Ellipta 100-62.5-25 mcg Blister With Device 2 inh INHALATION DAILY RF: 0 metoprolol tartrate 50 mg Tablet 50 mg PO BID RF: 0 losartan 50 mg Tablet 50 mg PO DAILY RF: 0 Discharge Instructions Instructions: Dehydration (ED) Additional Instructions: continue to try and find a detox facility for your alcohol use drink fluids to stay hydrated if you feel more ill, have severe chest pain/pressure or abdominal pain, or fevers return to the emergency department Medical Decision Making 53 yo male with longastanding alcohol abuse comes in with chief complaint of feeling dehydrated. He states he has not eaten much and [facility]. He felt dehyrated so came here. He currently has no other complaints, no chest pain, abd pain, fevers, chills, headaches, n/v, and denies si/hi. He is clinically sober on exam. Will give IV thiamine, IV fluids and monitor and reassess. pts labs do show HIRAM consistent with dehydration, BP has improved with fluids and he has no complaints. Do not feel other therapy or workup indicated, lfts and lipase minimally elevated from alcohol use. Met with [facility] who is going to assist with finding detox bed as an outpatient Differential Diagnosis alcohol abuse, dehydration, malnutrtion HPI General Mode of arrival: EMS . Date/Time Provider Initiated Documentation: 12/03/18 11:53 . Limitations to Documentation: no limitations . Information obtained by: patient . History of Present Illness 53 year old M presents to the emergency department with the chief complaint of I thinkI'm dehydrated, Patient started experiencing this week(s) (1) and it has been constant. No relieving factors improve symptom(s), No exacerbating factors reported . Patient did receive the following treatments prior to arrival, none Related Data Home Medications Medication Instructions Recorded Confirmed aspirin [Aspirin Low-Strength] 1 tab PO DAILY 09/14/17 10/12/18 sertraline 150 mg PO HS 09/14/17 10/12/18 thiamine mononitrate (vit B1) 100 mg PO QAM #30 tab 09/14/17 10/12/18 [Vitamin B-1 (mononitrate)] albuterol sulfate 90 mcg/actuation 2 puff IH QID PRN 01/16/18 10/12/18 aerosol inhaler atorvastatin 80 mg tablet 80 mg PO DAILY 01/16/18 10/12/18 loperamide 2 mg capsule 2 mg PO Q4H PRN 01/16/18 10/12/18 mometasone 50 mcg/actuation nasal 2 spray EVELIO BID 01/16/18 10/12/18 spray One-A-Day Men 50 Plus (ginkgo) 1 tab PO DAILY 04/27/18 10/12/18 Trelegy Ellipta 2 inh INHALATION DAILY 04/27/18 10/12/18 losartan 50 mg PO DAILY 04/27/18 10/12/18 metoprolol tartrate 50 mg PO BID 04/27/18 10/12/18 mirtazapine 15 mg PO HS 04/27/18 10/12/18 omeprazole 40 mg PO DAILY 04/27/18 10/12/18 lidocaine 1 applic TOPICAL TID 10/02/18 10/02/18 naproxen 500 mg PO BID PRN 10/02/18 10/02/18 Previous Rx's Medication Instructions Recorded thiamine mononitrate (vit B1) 100 mg PO QAM #30 tab 09/14/17 [Vitamin B-1 (mononitrate)] Allergies Allergy/AdvReac Type Severity Reaction Status Date / Time clonidine AdvReac Verified 10/12/18 09:43 General Stated Complaint: ETOHWithdr AMINA: 3 Review of Systems Review of Systems All systems reviewed & are unremarkable except as noted in HPI and below Constitutional Denies chills, Denies fever(s) and Denies weakness Cardiovascular Denies chest pain and Denies dyspnea Respiratory Denies cough and Denies dyspnea Gastrointestinal Denies abdominal pain, Denies nausea and Denies vomiting Musculoskeletal Denies joint swelling Neurologic Denies weakness Psychiatric Denies depression [facility] Medical History (Updated 10/02/18 @ 13:05 by Gillian Linares) Alcohol abuse Alcoholic hepatitis (Acute) Alcoholism (Chronic) Allergic rhinitis (Acute) Allergic rhinitis caused by feathers (Acute) Anxiety and depression Anxiety and depression (Chronic) Cardiomyopathy (Acute) Complete left bundle branch block (LBBB) (Chronic) Complicated grief (Acute) COPD (chronic obstructive pulmonary disease) (Chronic) COPD, mild (Acute) Coronary artery disease DDD (degenerative disc disease), lumbar (Acute) Diarrhea (Acute) Disorder of white blood cells (Acute) Dyslipidemia Dysphagia (Acute) Dyspnea (Acute) Elevated alkaline phosphatase level (Acute) Erectile dysfunction (Acute) Fatigue (Acute) Financial problems (Acute) Hemoptysis (Acute) Homelessness (Acute) Hyperlipemia (Chronic) Hypertension (Chronic) Hyponatremia (Acute) Imprisonment and other incarceration (Acute) Insomnia (Acute) Leukocytosis (Acute) Low back pain (Chronic) Night sweats (Acute) Oxygen desaturation (Acute) Periodic limb movement disorder (Acute) Prediabetes (Acute) PTSD (post-traumatic stress disorder) (Chronic) Sleep apnea (Acute) Smoker (Chronic) Steatosis, liver (Chronic) Tobacco dependence Surgical History (Updated 10/02/18 @ 13:05 by Gillian Linares) H/O colonoscopy (Acute 04/29/18) H/O colonoscopy with polypectomy (Resolved 03/31/15) History of esophagogastroduodenoscopy (EGD) (Acute 04/29/18) S/P coronary artery stent placement (Inactive) S/P drug eluting coronary stent placement (Resolved) Stented coronary artery (Acute) Social History (Updated 10/12/18 @ 09:52 by Hedy Patterson RN) Smoking/Tobacco Use Status: Current every day Alcohol Intake: current Alcohol Intake frequency: 3 or more drinks per day Alc ohol type: beer Details: Pt has not drank in 4 days 10/12/18 Drug use: Never Substance use type: does not use Household members: none Housing: apartment Number of Children: 1 What is your relationship status?: Panel score (0-1 are the most socially isolated patients): 0 What type of physical activity do you participate in: walking Do you feel safe at home: Yes Do you feel safe in your relationship?: Yes Exam Const General: no acute distress Orientation: alert HENMT Head: normal to inspection Ears: external ears normal General nose exam: external nose normal Mouth: moist mucous membranes Eyes General: appearance normal, both eyes and all related structures Neck Neck: normal visual inspection Resp Effort & Inspection: normal respiratory effort and able to speak in complete sentences Cardio Rate: regular rate Skin General skin exam: no rashes or lesions noted Neuro General: alert and oriented x3 Extrem General: normal to inspection Psych Mental Status: mental status grossly normal Course Vital Signs Temperature 36.6 C 12/03/18 12:05 Pulse 84 12/03/18 12:05 Respiratory Rate 17 12/03/18 12:05 Blood Pressure 94/46 L 12/03/18 12:05 Pulse Oximetry 97 12/03/18 12:05 Temperature 36.6 C 12/03/18 12:05 Temperature Source Skin 12/03/18 12:05 Pulse 84 12/03/18 12:05 Respiratory Rate 17 12/03/18 12:05 Respiratory Effort Non-Labored 12/03/18 11:52 Respiratory Pattern Normal 12/03/18 11:53 Blood Pressure 94/46 L 12/03/18 12:05 Pulse Oximetry 97 12/03/18 12:05 Oxygen Delivery Method Room Air 12/03/18 12:05 Oxygen Flow Rate 0 12/03/18 12:05
[2018-12-03] MEDS: Normal Saline 1,000 ML 1000 ML IV ×2 (12:24→13:00)
[2018-12-03 12:36] LABS: HCT 41.4 % (40.0-50.0); HGB 14.6 g/dL (13.5-17.5); Mean Corp. HGB Concentration 35.3 g/dL (32.0-36.0); Mean Corpuscular Hemoglobin 31.5 pg (27.0-33.0); Mean Corpuscular Volume 89.2 fL (80-95); RBC 4.64 m/cumm (4.50-6.00)
[2018-12-03 12:37] LABS: Mean Platelet Volume 10.9 fL (8.0-11.0); Platelet Count 83 x1000/uL (130-400); RBC Distribution Width 15.1 % (11.8-14.1)
[2018-12-03] MEDS: THIAMINE 500 MG in Normal Saline 100 ML 200 MG IVPB (12:37)
[2018-12-03] MEDS: Folic Acid 1 MG TAB PO (12:37)
[2018-12-03 12:45] LABS: ALT 183 U/L (12-78); AST 328 U/L (15-37); Albumin 3.6 g/dL (3.4-5.0); Alkaline Phosphatase 140 U/L (46-116); Anion Gap 13.1 mmol/L (3-11); BUN 10 mg/dL (7-18); Bilirubin, Total 1.7 mg/dL (0.2-1.0); CO2 26.9 mmol/L (21.0-32.0); CREATININE 1.73 mg/dL (0.70-1.30); Calcium 7.8 mg/dL (8.5-10.1); Chloride 88 mmol/L (98-107); Estimated GFR 41.37 (mL/min/1.73m2); Glucose 107 mg/dL (70-100); Lipase 531 U/L (73-393); Potassium 3.5 mmol/L (3.5-5.1); Sodium 128 mmol/L (136-145); Total Protein 7.3 g/dL (6.4-8.2)
[2018-12-03 12:48] LABS: Absolute Eosinophil Count 0.19 k/cumm (0.0-0.7); Absolute Lymphocyte Count 1.75 k/cumm (1.2-3.4); Absolute Monocyte Count 0.49 k/cumm (0.11-0.7); Absolute Neutrophil Count 7.28 k/cumm (1.2-6.7); Atypical Lymphocytes % 2; Diff Comment Manual Differential; RBC Morphology Normal
== END 2018-12-03 13:58 | disposition home or self-care (01) ==
PROVIDERS: Emergency Provider Emergency Medicine; PCP Nurse Practitioner
DX: F10.230 Alcohol dependence with withdrawal, uncomplicated (principal); E86.0 Dehydration; N17.9 Acute kidney failure, unspecified; J44.9 Chronic obstructive pulmonary disease, unspecified; F17.210 Nicotine dependence, cigarettes, uncomplicated; I10 Essential (primary) hypertension
CPT/HCPCS: 36415; 80053; 83690; 96361; 96365; 99284; 85025

== ENCOUNTER 2019-02-18 09:10 | Outpatient (REF) | payer MEDICAID, SELFPAY ==
[2019-02-20 16:59] LABS: Testosterone, Free 10.8 ng/dL (4.06-15.6); Testosterone, Total 431 ng/dL (240-950)
== END 2019-02-18 09:30 ==
LOC: NCHCN 09:10
PROVIDERS: PCP Nurse Practitioner; Visit Provider Nurse Practitioner
DX: F52.21 Male erectile disorder (principal)
CPT/HCPCS: 84402; 84403

== ENCOUNTER 2019-02-23 12:58 | Outpatient (CLI) | payer MEDICAID, SELFPAY ==
--- NOTE | 2019-02-23 06:00 | DI.RAD_ITS ---
EXAM: XR PAIN CLINIC LUMBAR SP 2V CLINICAL HISTORY: Dx: Lumbar Spondylosis. TECHNIQUE: Fluoroscopy was provided for the referring physician for guidance with performing injecti on procedure. COMPARISON: No exams were available for comparison FINDINGS: Please see procedure note for details. RADIATION DOSE DELIVERED: Fluoro time 61.7 seconds. Fluoro dose 18.03 mGy.
--- NOTE | 2019-02-23 11:20 | PDOC.PAIN_ITS ---
Pain Clinic Procedure Note Procedure Note Procedure Note: PROCEDURE NOTE LUMBAR MEDIAL BRANCH DIAGNOSTIC BLOCKS Date of Service: February 23, 2019 Patient: JOHNATHAN HANKINS Provider: Arjun Shahid MD Referring Physician: Shanna Valladares APRN Diagnosis: lumbar spondylosis without radiculopathy or myelopathy Pre-procedure Note History and Exam: Patient demonstrates today moderate to severe non- radicular back pain without neurologic deficit aggravated by hyperextension Yes Back pain greater than leg pain Yes Patient today has tenderness over the suspected joint(s) Yes History of post-traumatic injury No Hypertrophic arthropathy Yes Back pain associated with suspected motion segment instability or Hypermobility or pseudoarthrosis No Pre-testing pain score (VAS): 4 out of 10 Previous medial branch block testing? No Today's Operative Note JOHNATHAN HANKINS was greeted by the nurse who verified the patients name and . Patient was then taken to the fluoroscopy suite. JOHNATHAN was interviewed and the medical record was reviewed. There were no medical contraindications to performing bilateral lumbar medial branch nerve blocks. I first had a talk with the patient and discussed the potential risks, benefits, side effects, and alternatives of this procedure including but not limited to increased pain from the procedure, no pain relief, nerve damage, infection, and bleeding. He comprehended my conversation and accepts the risks and understands the goals of this diagnostic procedure. All questions and concerns from the patient were addressed. After I was comfortable that the patient was fully informed about this procedure, the printed consent form was signed. Standard time-out procedure was performed JOHNATHAN was placed in the prone position on the fluoroscopy table and automated blood pressure cuff and pulse oximeter were applied. The anatomic target points of the segmental medial branches of Bilateral L3, L4, L5-DR were identified with fluoroscopy. Following thorough Chlorhexadine preparation of the skin and drapi ng, a 25 gauge 3.5 spinal needle was placed under fluoroscopic guidance down on to the target point for each respective segmental medial branch.Position was confirmed in A/P, oblique and lateral views and 0.25 cc of Omnipaque-240 at each segmental nerve. At each level we injected 0.5ml of Bupivacaine 0.5%. (48 cc of Omnipaque was wasted) JOHNATHAN 's vital signs were stable throughout the procedure and were as recorded in the docflowsheet by the nursing staff. Postoperatively, today patient demonstrates the following changes with hyperextension and with tenderness over the suspected joint(s). Provacative testing using the Patel's facet loading test Right side Left side Directly before the block VAS (0-10) = 4 out of 10 VAS (0-10) = 4 out of 10 5 minutes after the block VAS (0-10) = 1 out of 10 VAS (0-10) = 1 out of 10 Percentage relief obtained with this diagnostic block 75% 75% Any improved physical functioning directly after the blocks? He is able to bend backwards without significant pain relief. Next, JOHNATHAN was asked to record the percent pain relief and any changes in provocative maneuvers for the next 4 hours. @ROSALBA@ will report this information at the next business day to one of our nurses. Based on the medial branches blocked today, if the patient meets insurance criteria for radiofrequency, the treatment should result in the denervation of the bilateral L4-5 and L5-S1 facet joint nerves. We would expect to denervate a total of 4 facets during the radiofrequency ablation. Discharge plan:: He will call back with his 0-4 hour post-procedure pain scores. I personally performed the entire procedure. Zehra Díaz MD ABPN-subspecialty board certification in Pain Medicine Attending Physician - Pain Management
[2019-02-23 13:09] VITALS: BP 105/67; PULSE 81; RESP 20; TEMP 36.7; O2SAT 95
[2019-02-23] MEDS: Omnipaque 240 MG/ML 50 ML BTL IJ (14:07)
[2019-02-23] MEDS: Bupivacaine 0.5% Pres-Free 10 ML VIAL IJ (14:08)
[2019-02-23 14:09] VITALS: BP 130/76; PULSE 84; RESP 16; O2SAT 96
== END 2019-02-23 13:18 ==
PROVIDERS: PCP Nurse Practitioner; Visit Provider Internal Medicine
DX: M47.816 Spondylosis without myelopathy or radiculopathy, lumbar region (principal)
CPT/HCPCS: 64493 ×2; 64494 ×2; 72100; Q9967

== ENCOUNTER 2019-04-08 10:15 | Emergency (ER) | payer MEDICAID, SELFPAY ==
[2019-04-08] VITALS (41 sets, daily range): BP systolic 122–163; BP diastolic 63–120; PULSE 93–164; RESP 13–27; TEMP 36.5; O2SAT 88–98
--- NOTE | 2019-04-08 11:04 | ED.GENADUL_ITS ---
Discharge Plan Discharge Details Chief Complaint: GenMedical Primary Care Provider: Emilee George ED Provider: Abiel Self Home Meds and New Rx's Prescriptions: No Action gabapentin 300 mg capsule 300 mg PO QHS Qty: 60 RF: 3 albuterol sulfate [ProAir HFA] 90 mcg/actuation HFA aerosol inhaler 2 puff IH QID PRNRF: 0 atorvastatin 80 mg tablet 80 mg PO DAILY RF: 0 lidocaine 3 % Cream 1 applic TOPICAL TID RF: 0 naproxen 500 mg Tablet 500 mg PO BID PRNRF: 0 metoprolol succinate 100 mg tablet extended release 24 hr 150 mg PO DAILY RF: 0 melatonin 3 mg capsule 3 mg PO HS PRNRF: 0 aspirin [Aspirin Low-Strength] 81 MG tablet,chewable 1 tab PO DAILY RF: 0 sertraline 50 MG tablet 50 mg PO HS RF: 0 omeprazole 40 mg Capsule,Delayed Release(Dr/Ec) 40 mg PO DAILY RF: 0 One-A-Day Men 50 Plus (ginkgo) 400-300-120 mcg-mcg-mg Tablet 1 tab PO DAILY RF: 0 Trelegy Ellipta 100-62.5-25 mcg Blister With Device 2 inh INHALATION DAILY RF: 0 losartan 50 mg Tablet 50 mg PO DAILY RF: 0 Medical Decision Making See course EKG sinus tachycardia 104 left bundle branch pattern morphology negative for scarBosa criteria HPI 53-year-old male past medical history of alcoholism anxiety cardiomyopathy left bundle branch block COPD coronary artery disease with stent hyperlipidemia GERD presents complaining of ataxia and just feeling off for about a week. Patient reports increasing drinking over the last month drinks at baseline about a half a case of beer daily but now adding vodka up to 1/2 pint daily. Admits to frequent falls word finding difficulty. No acute change in last 24 hours patient just decided was time to get checked out this morning. No shortness of breath no chest pain no nausea vomiting or diarrhea no loss of consciousness. Patient also admits to poor nutrition often going days with only consuming alcohol. General Date/Time Provider Initiated Documentation: 04/08/19 11:01 . Related Data Home Medications Medication Instructions Recorded Confirmed aspirin [Aspirin Low-Strength] 1 tab PO DAILY 09/14/17 04/08/19 sertraline 50 mg PO HS 09/14/17 04/08/19 albuterol sulfate 90 mcg/actuation 2 puff IH QID PRN 01/16/18 02/25/19 aerosol inhaler atorvastatin 80 mg tablet 80 mg PO DAILY 01/16/18 04/08/19 One-A-Day Men 50 Plus (ginkgo) 1 tab PO DAILY 04/27/18 04/08/19 Trelegy Ellipta 2 inh INHALATION DAILY 04/27/18 02/25/19 losartan 50 mg PO DAILY 04/27/18 04/08/19 omeprazole 40 mg PO DAILY 04/27/18 04/08/19 lidocaine 1 applic TOPICAL TID 10/02/18 02/25/19 naproxen 500 mg PO BID PRN 10/02/18 04/08/19 melatonin 3 mg capsule 3 mg PO HS PRN 01/22/19 02/25/19 metoprolol succinate 100 mg 150 mg PO DAILY tab 01/22/19 04/08/19 tablet,extended release 24 hr gabapentin 300 mg capsule 300 mg PO QHS #60 cap 02/25/19 04/08/19 Previous Rx's Medication Instructions Recorded gabapentin 300 mg capsule 300 mg PO QHS #60 cap 02/25/19 Allergies Allergy/AdvReac Type Severity Reaction Status Date / Time clonidine AdvReac Verified 02/25/19 09:50 General Stated Complaint: GenMedical AMINA: 3 Review of Systems All systems reviewed & are unremarkable except as noted in HPI and below PFSH Medical History Alcoholic hepatitis (Acute) Alcoholism (Chronic) Allergic rhinitis (Acute) Anxiety and depression (Chronic) Cardiomyopathy (Acute) ETOH induced Complete left bundle branch block (LBBB) (Chronic) COPD (chronic obstructive pulmonary disease) (Chronic) Coronary artery disease s/p PCI DDD (degenerative disc disease), lumbar (Acute) 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 Dyslipidemia Dyspnea (Acute) Erectile dysfunction (Acute) Fatigue (Acute) Financial problems (Acute) GERD (gastroesophageal reflux disease) (Chronic) H/O: GI bleed (Acute) Homelessness (Acute) Hyperlipemia (Chronic) Hypertension (Chronic) Imprisonment and other incarceration (Acute) Insomnia (Acute) Low back pain (Chronic) Periodic limb movement disorder (Acute) Prediabetes (Acute) PTSD (post-traumatic stress disorder) (Chronic) Sleep apnea (Acute) Smoker (Chronic) Surgical History H/O colonoscopy (Acute 04/29/18) Dr Hayden Lr, [facility], attempted, poor prep, r/s for 05/14/18 (consult), but patient no showed. H/O colonoscopy with polypectomy (Resolved 03/31/15) Dr Jacome, rectal serrated adenoma, repeat in five years History of esophagogastroduodenoscopy (EGD) (Acute 04/29/18) ZINA Roberts (colo attempted at same time, however poor prep, scheduled to be repeated, consult scheduled for 05/14/18) S/P coronary artery stent placement (Inactive) S/P hernia repair (Acute) Family History Father Diabetes Heart disease Brother Heart disease Social History Smoking/Tobacco Use Status: Current every day Tobacco Type: cigarettes Alcohol Intake: former Details: Pt has not drank [id number] as of 02/25/19 Drug use: Never Substance use type: does not use Household members: none Housing: apartment Number of Children: 1 current occupation: Disabled What is your relationship status?: Panel score (0-1 are the most socially isolated patients): 0 What type of physical activity do you participate in: walking Seatbelt use: always Do you feel safe at home: Yes Exam Narrative Exam Narrative: Pulse oximetry reviewed by me and is normal [] Constitutional: Pt is in no acute distress. pt is well appearing. oriented to person, place, and time. Eyes: conjunctivae are normal. Pupils are equal, round, and reactive to light. No scleral icterus. extraocular muscles are intact Ears/Nose/Mouth/Throat: mucus membranes are moist. Musculoskeletal: neck is supple. normal range of motion in all extremities. Cardiovascular: Normal rate and rhythm. No lower extremity edema [] regular rate and rhythm Respiratory: effort is normal . pt exhibits no stridor or respiratory distress. [] Lungs clear to auscultation bilaterally GastrointestinaI: abdomen soft, +BS, nontender, -rebound, -guarding. Neurological: alert and oriented to person, place, and time. he has normal strength, Skin: Skin is warm and dry. he is not diaphoretic. Distal perfusion in tact, warm extremities, cap refill ? 2 seconds. Hem/Lymph/Imm: No cervical LAD, no goiter, no conjunctival pallor Psych: normal mood and affect. behavior is normal Triage and nurse notes reviewed.[] Neuro General: alert, awake and oriented x3 Cranial Nerves: EOM intact bilaterally Speech: abnormal speech and other (Word finding difficulty) Gait: ataxic Motor: muscle tone normal throughout and strength 5/5 throughout Sensory Exam: no sensory deficits noted Coordination: levzmg-pr-[id number] test abnormal, utxs-oe-eqiq test normal, Romberg test abnormal, tandem gait abnormal, sways with eyes open, abnormal rapid alternating movement UE and abnormal rapid alternating movement LE Course 53-year-old male past medical history coronary artery disease alcoholism poor nutrition presents with 1 week word finding difficulty ataxia frequent falls just feeling off. The emergency department patient tachycardic abnormal neurologic exam dorsal columns and cerebellar abnormalities. Differential diagnosis includes stroke intracranial hemorrhage electrolyte abnormality, encephalopathy. 1:[address] head and labs and chest x-ray unremarkable for large derangements mild hyponatremia mild hypokalemia discussed with neurology who recommends MRI brain and consideration of high-dose IV thiamine therapy for possible encephalopathy, thiamine and vitamins administered in the emergency department, given IV fluids. Feel patient symptoms ambulatory dysfunction and new onset neurologic symptoms will be served by hospital admission for neurology consult MRI brain and further observation. Discussed with Dr. Chapman who accepts the patient for admission. Vital Signs Vital signs: Vital Signs Temperature 36.5 C 04/08/19 10:16 Pulse 110 H 04/08/19 10:16 Respiratory Rate 17 04/08/19 10:16 Blood Pressure 144/86 H 04/08/19 10:16 Pulse Oximetry 92 L 04/08/19 10:16 Temperature 36.5 C 04/08/19 10:16 Temperature Source Tympanic 04/08/19 10:16 Pulse 116 H 04/08/19 10:46 Pulse 100 H 04/08/19 10:50 Respiratory Rate 23 04/08/19 10:50 Respiratory Effort Non-Labored 04/08/19 10:27 Respiratory Depth Normal 04/08/19 10:27 Respiratory Pattern Normal 04/08/19 10:27 Blood Pressure 144/95 H 04/08/19 10:46 Blood Pressure Mean 104 04/08/19 10:46 Blood Pressure Position Sitting 04/08/19 10:16 Pulse Oximetry 90 L 04/08/19 10:40 Oxygen Delivery Method Room Air 04/08/19 10:16 Oxygen Flow Rate 0 04/08/19 10:16
[2019-04-08 11:24] LABS: Abs Immature Grans 0.01 k/cumm (0.0-0.09); Absolute Basophil Count 0.04 k/cumm (0.0-0.2); Absolute Eosinophil Count 0.12 k/cumm (0.0-0.7); Absolute Lymphocyte Count 2.69 k/cumm (1.2-3.4); Absolute Monocyte Count 0.69 k/cumm (0.11-0.7); Absolute Neutrophil Count 2.24 k/cumm (1.2-6.7); Basophils % 0.7; Eosinophils % 2.1; HCT 44.7 % (40.0-50.0); Immature Grans % 0.2; Lymphocytes % 46.5; Mean Corp. HGB Concentration 33.6 g/dL (32.0-36.0); Mean Corpuscular Hemoglobin 31.2 pg (27.0-33.0); Mean Corpuscular Volume 92.9 fL (80-95); Mean Platelet Volume 9.6 fL (8.0-11.0); Monocytes % 11.9; Neutrophils % 38.6; Platelet Count 165 x1000/uL (130-400); RBC 4.81 m/cumm (4.50-6.00); RBC Distribution Width 15.1 % (11.8-14.1); White Blood Cell Count 5.79 k/cumm (4.4-10.8)
--- NOTE | 2019-04-08 11:31 | DI.CT_ITS ---
EXAM: CT HEAD - STROKE PROTOCOL CT HEAD - STROKE PROTOCOL CLINICAL HISTORY: ataxia. ataxia TECHNIQUE: Imaging Protocol: Axial computed tomography images with coronal and sagittal reformatted images were created and reviewed COMPARISON: HEAD WITHOUT CONTRAST from 09/14/2017 FINDINGS: The ventricular system is normal in appearance. No evidence of acute intracranial hemorrhage, mass effect, or midline shift. The orbital structures are unremarkable. The temporal bone structures appear intact. Calvarium: Normal. Visualized Paranasal sinuses/Mastoids: Clear. IMPRESSION: Normal cranial CT. DATA REPOSITORY: All CT scans at this facility are submitted to the National Radiology Data Registry (NRDR) Dose Index Registry (DIR) with the [employer] (ACR). RADIATION OPTIMIZATION: All CT scans at this facility use at least one of these dose optimization te chniques: automated exposure control; mA and/or kV adjustment per patient size (includes targeted exa ms where dose is matched to clinical indication); or iterative reconstruction.
[2019-04-08 11:32] LABS: INR 0.9 (0.9-1.1); Prothrombin Time 9.4 sec (9.3-11.0)
--- NOTE | 2019-04-08 11:33 | DI.RAD_ITS ---
EXAM: XR CHEST 2V PA LATERAL XR CHEST 2V PA LATERAL CLINICAL HISTORY: cough cough TECHNIQUE: 2D digital imaging was performed. COMPARISON: XR CHEST 2V PA LATERAL from 03/17/2018 FINDINGS: The heart is not enlarged. The lungs are clear and well expanded. No pleural effusion seen. Mediastin al contours appear intact. IMPRESSION: Normal chest
[2019-04-08] MEDS: THIAMINE 100 MG in Normal Saline 100 ML 200 MG IVPB (11:48)
[2019-04-08] MEDS: Normal Saline Flush 10 ML SYR IVP (11:49)
[2019-04-08 12:15] LABS: ALT 52 U/L (16-63); AST 97 U/L (15-37); Albumin 3.7 g/dL (3.4-5.0); Alkaline Phosphatase 139 U/L (46-116); Anion Gap 14.1 mmol/L (3-11); BUN 11 mg/dL (7-18); Bilirubin, Direct 0.23 mg/dL (0.00-0.20); Bilirubin, Total 0.4 mg/dL (0.2-1.0); CO2 27.9 mmol/L (21.0-32.0); CREATININE 0.55 mg/dL (0.70-1.30); Calcium 8.2 mg/dL (8.5-10.1); Chloride 104 mmol/L (98-107); Glucose 90 mg/dL (74-106); Magnesium 1.6 mg/dL (1.8-2.4); Potassium 3.8 mmol/L (3.5-5.1); Sodium 146 mmol/L (136-145); Total Protein 7.8 g/dL (6.4-8.2); Troponin I < 0.05 ng/Ml (<0.06)
[2019-04-08] MEDS: Normal Saline 1,000 ML 1000 ML IV (12:45)
[2019-04-08] MEDS: MAGNESIUM SULFATE 8.12 MEQ, MULTIVITAMIN 10 ML, THIAMINE 100 MG, FOLIC ACID 1 MG in Nor... 168.867 MG IV (12:45)
[2019-04-08 13:28] LABS: ETHANOL BLOOD 413.1 mg/dL (<3)
--- NOTE | 2019-04-08 13:28 | HPE_ITS ---
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 Dyslipidemia Dyspnea (Acute) Erectile dysfunction (Acute) Fatigue (Acute) Financial problems (Acute) GERD (gastroesophageal reflux disease) (Chronic) H/O: GI bleed (Acute) Homelessness (Acute) Hyperlipemia (Chronic) Hypertension (Chronic) Imprisonment and other incarceration (Acute) Insomnia (Acute) Low back pain (Chronic) Periodic limb movement disorder (Acute) Prediabetes (Acute) PTSD (post-traumatic stress disorder) (Chronic) Sleep apnea (Acute) Smoker (Chronic) Surgical History H/O colonoscopy (Acute 04/29/18) Dr Hayden Lr, [facility], attempted, poor prep, r/s for 05/14/18 (consult), but patient no showed. H/O colonoscopy with polypectomy (Resolved 03/31/15) Dr Jacome, rectal serrated adenoma, repeat in five years History of esophagogastroduodenoscopy (EGD) (Acute 04/29/18) Dr Hayden Lr, [facility] (colo attempted at same time, however poor prep, scheduled to be repeated, consult scheduled for 05/14/18) S/P coronary artery stent placement (Inactive) S/P hernia repair (Acute) Family History Father Diabetes Heart disease Brother Heart disease Social History Smoking/Tobacco Use Status: Current every day Tobacco Type: cigarettes Alcohol Intake: former Details: Pt has not drank [id number] as of 02/25/19 Drug use: Never Substance use type: does not use Household members: none Housing: apartment Number of Children: 1 current occupation: Disabled What is your relationship status?: Panel score (0-1 are the most socially isolated patients): 0 What type of physical activity do you participate in: walking Seatbelt use: always Do you feel safe at home: Yes Meds Home Medications and Allergies Home Medications Medication Instructions Recorded Confirmed Type aspirin [Aspirin Low-Strength] 1 tab PO DAILY 09/14/17 04/08/19 History sertraline 50 mg PO HS 09/14/17 04/08/19 History albuterol sulfate 90 mcg/actuation 2 puff IH QID PRN 01/16/18 02/25/19 History aerosol inhaler atorvastatin 80 mg tablet 80 mg PO DAILY 01/16/18 04/08/19 History One-A-Day Men 50 Plus (ginkgo) 1 tab PO DAILY 04/27/18 04/08/19 History Trelegy Ellipta 2 inh INHALATION DAILY 04/27/18 02/25/19 History losartan 50 mg PO DAILY 04/27/18 04/08/19 History omeprazole 40 mg PO DAILY 04/27/18 04/08/19 History lidocaine 1 applic TOPICAL TID 10/02/18 02/25/19 History naproxen 500 mg PO BID PRN 10/02/18 04/08/19 History melatonin 3 mg capsule 3 mg PO HS PRN 01/22/19 02/25/19 History metoprolol succinate 100 mg 150 mg PO DAILY tab 01/22/19 04/08/19 History tablet,extended release 24 hr gabapentin 300 mg capsule 300 mg PO QHS #60 cap 02/25/19 04/08/19 Rx Allergies Allergy/AdvReac Type Severity Reaction Status Date / Time clonidine AdvReac Verified 02/25/19 09:50 Results Labs Result diagrams: 04/08/19 10:12 04/08/19 11:53 Labs: Laboratory Results - last 24 hr 04/08/19 04/08/19 04/08/19 10:12 10:12 10:12 WBC 5.79 RBC 4.81 Hgb 15.0 Hct 44.7 MCV 92.9 MCH 31.2 MCHC 33.6 RDW 15.1 H Plt Count 165 MPV 9.6 Immature Gran % 0.2 Neutrophils % 38.6 Lymphocytes % 46.5 Monocytes % 11.9 Eosinophils % 2.1 Basophils % 0.7 Absolute Neutrophils 2.24 Absolute Lymphocytes 2.69 Absolute Monocytes 0.69 Absolute Eosinophils 0.12 Absolute Basophils 0.04 PT 9.4 INR 0.9 Sodium Cancelled Potassium Cancelled Chloride Cancelled Carbon Dioxide Cancelled Anion Gap Cancelled BUN Cancelled Creatinine Cancelled Estimated GFR/1.73 m2 Cancelled Glucose Cancelled Calcium Cancelled Magnesium Cancelled Total Bilirubin Cancelled Conjugated Bilirubin Cancelled AST Cancelled ALT Cancelled Alkaline Phosphatase Cancelled Troponin I Cancelled Total Protein Cancelled Albumin Cancelled Ethyl Alcohol 04/08/19 04/08/19 11:53 11:53 WBC RBC Hgb Hct MCV MCH MCHC RDW Plt Count MPV Immature Gran % Neutrophils % Lymphocytes % Monocytes % Eosinophils % Basophils % Absolute Neutrophils Absolute Lymphocytes Absolute Monocytes Absolute Eosinophils Absolute Basophils PT INR Sodium 146 H Potassium 3.8 Chloride 104 Carbon Dioxide 27.9 Anion Gap 14.1 H BUN 11 Creatinine 0.55 L Estimated GFR/1.73 m2 >= 60.00 Glucose 90 Calcium 8.2 L Magnesium 1.6 L Total Bilirubin 0.4 Conjugated Bilirubin 0.23 H AST 97 H ALT 52 Alkaline Phosphatase 139 H Troponin I < 0.05 Total Protein 7.8 Albumin 3.7 Ethyl Alcohol 413.1 Last Vital Signs Temp 36.5 C 04/08/19 10:16 Pulse 116 H 04/08/19 10:46 Resp 23 04/08/19 10:50 BP 144/95 H 04/08/19 10:46 Pulse Ox 90 L 04/08/19 10:40
[2019-04-08 13:37] LABS: *AMPHETAMINES SCREEN URINE Negative (Negative); *BARBITURATES SCREEN URINE Negative (Negative); *BENZODIAZEPINES SCREEN URINE Negative (Negative); Cannabinoids THC Negative (Negative); Cocaine Screen,Urine Negative (Negative); METHADONE URINE SCREEN Negative (Negative); OPIATES URINE SCREEN Negative (Negative)
[2019-04-08 13:39] LABS: Tricyclic Antidepressants Negative (Negative)
[2019-04-08 14:30] LABS: Troponin I < 0.05 ng/Ml (<0.06)
--- NOTE | 2019-04-08 14:58 | NUR.NOTE ---
Nursing Note: IV DC with cannula intact
== END 2019-04-08 14:55 | disposition left against medical advice (07) ==
PROVIDERS: Emergency Provider Emergency Medicine; PCP Nurse Practitioner
DX: R27.8 Other lack of coordination (principal); E87.1 Hypo-osmolality and hyponatremia; E87.6 Hypokalemia; R41.82 Altered mental status, unspecified; F10.120 Alcohol abuse with intoxication, uncomplicated; Y90.8 Blood alcohol level of 240 mg/100 ml or more; Z53.29 Procedure and treatment not carried out because of patient's decision for other reasons; J44.9 Chronic obstructive pulmonary disease, unspecified; F17.210 Nicotine dependence, cigarettes, uncomplicated; I25.10 Atherosclerotic heart disease of native coronary artery without angina pectoris; Z95.5 Presence of coronary angioplasty implant and graft; I10 Essential (primary) hypertension; Z59.0 Homelessness
CPT/HCPCS: 36415; 36416; 80053; 80076; 80307; 82962; 93005; 96361; 96365; 96366; 96367; 99284; 70450; 71046; 80320; 83735; 84484; 85025; 85610; 93010; 99285

== ENCOUNTER 2019-04-18 10:28 | Inpatient (IN) | payer MEDICAID, SELFPAY ==
[2019-04-18] VITALS (89 sets, daily range): BP systolic 109–150; BP diastolic 51–85; PULSE 65–135; RESP 0–27; TEMP 36.6–36.8; O2SAT 81–99
--- NOTE | 2019-04-18 10:55 | W.ED.GENAD ---
Discharge Plan Disposition Patient Disposition: [facility] INPATIENT Condition: Critical Discharge Details Chief Complaint: CVA/TIA Clinical Impression: Wernicke encephalopathy Admit Date/Time: 04/18/19 12:07 Admit Provider: Norm Rivera Attending Provider: Norm Rivera Primary Care Provider: Emilee George ED Provider: Carmelo Kaur Discharge Data Discharge Date/Time-TO BE ENTERED AT DEPARTURE: 04/18/19 13:43 Medical Decision Making 11:00 --53-year-old male with history of alcoholism, here with ataxic gait, slurred speech. Patient did consume multiple alcoholic beverages today. Patient had similar presentation about 2 weeks ago and left the ED AMA. Concern for Wernicke's encephalopathy. Will give thiamine 100 mg IV. Consider central neurologic process including CVA. Plan to obtain CT of the head. --Labs reviewed and magnesium 1.7. I will give oral 800mg mag ox. Anion gap 15.6 which I suspect is secondary to alcoholic ketosis. Patient is receiving IV fluid bolus. Nursing note C waw score of 9. I will give Serax 30 mg p.o. Plan will be to admit for Warnicke's encephalopathy. I called and spoke with Dr. Avalos who will admit the patient. Official CT interpretation pending at time of admission. Bridging orders will be placed to the ICU. --Screening ECG was reviewed and interpreted by me: Sinus rhythm 77 bpm, left bundle branch block is present with a QRS duration of 150, patient did have left bundle branch pattern with QRS duration of 137 on prior EKG 04/08/2019. 12:04 --CT head interpreted by radiology: There is mild diffuse heterogeneity of the white matter attenuation, consistent with chronic white matter ischemic changes. Mild surgical atrophy. No acute intracranial hemorrhage. HPI General Mode of arrival: ambulatory. Date/Time Provider Initiated Documentation: 04/18/19 10:45. Limitations to Documentation: no limitations. Information obtained by: patient and EMS. HPI Narrative: 53-year-old male with history of alcoholism, COPD, coronary artery disease, cardiomyopathy, presents with chief complaint of difficulty walking. Patient notes that today he consumed at least 3 shots of hard liquor and 3 beers. He drinks heavily and daily for years. Patient is concerned that he had a stroke resulting in his difficulty ambulating. Symptoms are moderate to severe. No modifiers. Of note, patient was seen here in the emergency department on 04/08/2019 for similar presentation with ataxic gait. Plan at that time was to obtain MRI of the brain to assess for cerebellar dysfunction. Patient left the ED prior to completion of work-up AGAINST MEDICAL ADVICE. He has continued to have symptoms since leaving and now returns for further work-up. Related Data Home Medications Medication Instructions Recorded Confirmed aspirin [Aspirin Low-Strength] 1 tab PO DAILY 09/14/17 04/18/19 sertraline 50 mg PO HS 09/14/17 04/18/19 albuterol sulfate 90 mcg/actuation 2 puff IH QID PRN 01/16/18 04/18/19 aerosol inhaler atorvastatin 80 mg tablet 80 mg PO DAILY 01/16/18 04/18/19 One-A-Day Men 50 Plus (ginkgo) 1 tab PO DAILY 04/27/18 04/18/19 Trelegy Ellipta 2 inh INHALATION DAILY 04/27/18 04/18/19 losartan 50 mg PO DAILY 04/27/18 04/18/19 omeprazole 40 mg PO DAILY 04/27/18 04/18/19 lidocaine 1 applic TOPICAL TID 10/02/18 04/18/19 naproxen 500 mg PO BID PRN 10/02/18 04/18/19 melatonin 3 mg capsule 3 mg PO HS PRN 01/22/19 04/18/19 metoprolol succinate 100 mg 150 mg PO DAILY tab 01/22/19 04/18/19 tablet,extended release 24 hr gabapentin 300 mg capsule 300 mg PO QHS #60 cap 02/25/19 04/18/19 Previous Rx's Medication Instructions Recorded gabapentin 300 mg capsule 300 mg PO QHS #60 cap 02/25/19 Allergies Allergy/AdvReac Type Severity Reaction Status Date / Time clonidine AdvReac Verified 02/25/19 09:50 General Stated Complaint: CVA/TIA AMINA: 2 Review of Systems All systems reviewed & are unremarkable except as noted in HPI and below Constitutional Constitutional: Denies headache(s) ENT Ears, Nose, Mouth, and Throat: Denies headache(s) Cardiovascular Cardiovascular: Denies chest pain, Denies syncope and Denies dyspnea Respiratory Respiratory: Denies dyspnea Neurologic Neurologic: Reports as per HPI, Denies syncope, Denies headache(s) and Denies convulsions [facility] Medical History (Updated 12/29/19 @ 15:38 by Norm Rivera MD) Alcohol abuse Alcoholic hepatitis (Chronic) Alcoholism (Chronic) Allergic rhinitis (Acute) 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) Anxiety and depression Anxiety and depression (Chronic) Bloody sputum (Resolved) Cardiomyopathy (Chronic) ETOH induced Complete left bundle branch block (LBBB) (Chronic) COPD (chronic obstructive pulmonary disease) (Chronic) Coronary artery disease s/p PCI DDD (degenerative disc disease), lumbar (Acute) Diarrhea (Resolved) 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 Dyslipidemia Dyspnea (Acute) Erectile dysfunction (Acute) Fatigue (Acute) Financial problems (Acute) GERD (gastroesophageal reflux disease) (Chronic) H/O: GI bleed (Acute) Hemoptysis (Resolved) Homelessness (Acute) Hyperlipemia (Chronic) Hypertension (Chronic) Imprisonment and other incarceration (Acute) Insomnia (Acute) Low back pain (Chronic) Periodic limb movement disorder (Acute) Peripheral neuropathy (Inactive) Prediabetes (Acute) PTSD (post-traumatic stress disorder) (Chronic) Restless leg syndrome (Inactive) Skin lesion of back (Resolved) Sleep apnea (Acute) Smoker (Chronic) 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 H/O colonoscopy with polypectomy (Resolved 03/31/15) Dr Jacome, rectal serrated adenoma, repeat in five years History of esophagogastroduodenoscopy (EGD) (Acute 04/29/18) Dr Hayden Lr [facility] (colo attempted at same time, however poor prep, scheduled to be repeated, consult scheduled for 05/14/18) S/P coronary artery stent placement (Inactive) S/P drug eluting coronary stent placement (Resolved) S/P hernia repair (Acute) Family History Father Diabetes Heart disease Brother Heart disease Social History (Updated 04/18/19 @ 15:33 by Norm Rivera MD) Smoking/Tobacco Use Status: Current every day Tobacco Type: cigarettes Alcohol Intake: current Alcohol Intake frequency: 3 or more drinks per day Alcohol type: beer and hard liquor Drug use: Never Substance use type: does not use Details: TODAY---3 drinks of Vodka and a few beers Household members: none Housing: apartment Number of Children: 1 current occupation: Disabled What is your relationship status?: Panel score (0-1 are the most socially isolated patients): 0 What type of physical activity do you participate in: walking Seatbelt use: always Do you feel safe at home: Yes Exam Const General: cooperative and no acute distress HENMT Head: normocephalic and atraumatic Mouth: moist mucous membranes Eyes Conjunctivae: normal conjunctivae Sclera: normal sclerae EOM: EOM intact bilaterally Other: Horizontal nystagmus Neck Neck: trachea midline and supple Resp Auscultation: clear to auscultation bilaterally, no rales, no rhonchi and no wheezes Cardio Jugular venous pressure: no JVD Rate: regular rate and not tachycardic Rhythm: regular rhythm GI Palpation: soft, not firm, no guarding, no masses, not rigid and nontender Skin General skin exam: no rashes or lesions noted Neuro General: alert, awake, oriented x3 and tone normal Cranial Nerves: CN's II-XI intact bilaterally Speech: abnormal speech (Mild slurring) Gait: ataxic Motor: strength 5/5 throughout Sensory Exam: no sensory deficits noted Extrem General: no edema Psych Appearance: grossly normal Course Vital Signs Vital signs: Vital Signs Temperature 36.6 C 04/18/19 10:37 Pulse 81 04/18/19 10:37 Respiratory Rate 15 04/18/19 10:37 Blood Pressure 128/68 04/18/19 10:37 Pulse Oximetry 88 L 04/18/19 10:37 Temperature 36.6 C 04/18/19 10:37 Temperature Source Temporal Artery Scan 04/18/19 10:37 Pulse 81 04/18/19 10:37 Respiratory Rate 15 04/18/19 10:37 Respiratory Effort Non-Labored 04/18/19 10:51 Blood Pressure 128/68 04/18/19 10:37 Blood Pressure Position Supine 04/18/19 10:37 Pulse Oximetry 91 L 04/18/19 10:39 Oxygen Delivery Method Nasal Cannula 04/18/19 10:39 Oxygen Flow Rate 2 04/18/19 10:39 Pain Level 0 04/18/19 10:37
[2019-04-18 11:20] LABS: Abs Immature Grans 0.01 k/cumm (0.0-0.09); Absolute Basophil Count 0.01 k/cumm (0.0-0.2); Absolute Eosinophil Count 0.08 k/cumm (0.0-0.7); Absolute Lymphocyte Count 1.69 k/cumm (1.2-3.4); Absolute Monocyte Count 0.72 k/cumm (0.11-0.7); Absolute Neutrophil Count 4.25 k/cumm (1.2-6.7); Basophils % 0.1; Eosinophils % 1.2; HCT 45.4 % (40.0-50.0); HGB 15.5 g/dL (13.5-17.5); Immature Grans % 0.1; Mean Corp. HGB Concentration 34.1 g/dL (32.0-36.0); Mean Corpuscular Hemoglobin 31.4 pg (27.0-33.0); Mean Corpuscular Volume 92.1 fL (80-95); Mean Platelet Volume 9.8 fL (8.0-11.0); Monocytes % 10.7; Neutrophils % 62.9; RBC 4.93 m/cumm (4.50-6.00); RBC Distribution Width 15.2 % (11.8-14.1); White Blood Cell Count 6.76 k/cumm (4.4-10.8)
[2019-04-18] MEDS: Lactated Ringers 1,000 ML 1000 ML IV (11:21)
[2019-04-18] MEDS: Normal Saline Flush 10 ML SYR IVP ×2 (11:22→15:33)
[2019-04-18] MEDS: Thiamine 200 MG/2 ML VIAL 100 MG IV (11:22)
[2019-04-18 11:31] LABS: Diff Comment Diff Reviewed; Platelet Count 84 x1000/uL (130-400); RBC Morphology Normal
[2019-04-18 11:32] LABS: ALT 99 U/L (16-63); AST 180 U/L (15-37); Albumin 3.5 g/dL (3.4-5.0); Alkaline Phosphatase 164 U/L (46-116); Anion Gap 15.6 mmol/L (3-11); BUN 23 mg/dL (7-18); Bilirubin, Total 0.7 mg/dL (0.2-1.0); CO2 24.4 mmol/L (21.0-32.0); CREATININE 0.72 mg/dL (0.70-1.30); Calcium 7.9 mg/dL (8.5-10.1); Chloride 101 mmol/L (98-107); Glucose 76 mg/dL (74-106); Magnesium 1.7 mg/dL (1.8-2.4); Potassium 3.7 mmol/L (3.5-5.1); Sodium 141 mmol/L (136-145); Total Protein 7.7 g/dL (6.4-8.2); Troponin I < 0.05 ng/Ml (<0.06)
--- NOTE | 2019-04-18 11:35 | DI.CT_ITS ---
EXAM: CT HEAD WO CLINICAL HISTORY: altered mental status TECHNIQUE: The exam was performed according to the usual protocol without contrast. COMPARISON: CT HEAD - STROKE PROTOCOL from 04/08/2019 FINDINGS: Ventricles and sulci are consistent with the patient's age. Areas of decreased attenuation are seen in the white matter consistent with small vessel ischemic disease. The ventricles are intact. The b asilar cisterns are patent. No acute intracranial hemorrhage, midline shift or mass effect is presen t. There is mild mucosal thickening in the ethmoid air cells bilaterally. The remaining visualized paranasal sinuses are clear as are the mastoid air cells. The calvarium is intact. IMPRESSION: No acute intracranial process.
[2019-04-18] MEDS: Magnesium Oxide 400 MG TAB 800 MG PO (12:01)
--- NOTE | 2019-04-18 12:01 | DI.VRAD_ITS ---
PROCEDURE INFORMATION: Exam: CT Head Without Contrast Exam date and time: 04/18/2019 10:54 AM Age: 53 years old Clinical indication: Altered mental status/memory loss TECHNIQUE: Imaging protocol: Computed tomography of the head without contrast. COMPARISON: CT HEAD - STROKE PROTOCOL 04/08/2019 11:31 AM FINDINGS: Brain: There is mild diffuse heterogeneity of the white matter attenuation, consistent with chronic white matter ischemic changes. Mild cerebral atrophy No acute intracranial hemorrhage. Ventricles: Normal. No ventriculomegaly. Bones/joints: Unremarkable. No acute fracture. Sinuses: There is nonspecific fluid within the ethmoid sinuses. Mastoid air cells: Visualized mastoid air cells are well aerated. Soft tissues: Unremarkable. IMPRESSION: No acute intracranial hemorrhage. Dictated and Authenticated by: Hannah Finley MD. Ordering:KRISTY Rhodes MD
[2019-04-18 12:04] LABS: ETHANOL BLOOD 424.8 mg/dL (<3)
--- NOTE | 2019-04-18 15:25 | HPE_ITS ---
Date of service: 04/18/19 Time of Service: 15:25 Assessment and Plan Assessment and plan (1) Wernicke-Korsakoff syndrome (alcoholic): Status: Acute Assessment and plan: Patient presents with severe ataxia and nystagmus. He does not appear encephalopathic at this time but he is actively intoxicated. The feeling is he has active Warnicke syndrome. He would benefit from thiamine replacement. Plan is to give thiamine 500 mg 3 times daily x3 days then to 50 mg daily x5 days. Will monitor for alcohol withdrawal during this time. Will have physical therapy work with him and see how he does as far as regaining motor control. (2) Alcohol abuse: Status: None Assessment and plan: Patient is a regular daily drinker, 18 beers per day, and hard liquor in an unknown amount. He states he has been drinking heavily since a good friend, Vel Gonzales, was murdered this past summer. 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 He has been through alcohol withdrawal 5 times per his recollection. He has not had seizures on alcohol withdrawal. We will place him on CIWA protocol with Serax p.o. or lorazepam IV. Monitor in the ICU. He is currently intoxicated and likely will not begin going through alcohol withdrawal until about 24 to 48 hours. (3) Coronary artery disease: Status: None Assessment and plan: Patient has a history of significant coronary disease . He is status post 1 stent. He is not having any symptoms attributable to an acute coronary event. We will monitor closely. 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 There is no sign of congestive heart failure at this time. (5) Tobacco dependence: Status: None Assessment and plan: 80+ pack year smoking history. He still is an active smoker. We will give nicotine replacement. (6) Oxygen desaturation: Status: Chronic Assessment and plan: He has oxygen desaturation that occurs nightly. He has been diagnosed with obstructive sleep apnea. He has not tolerated CPAP therapy. He was tried on BiPAP therapy 06/[address] Carson's note on 11/06/2018. Will offer nocturnal oxygen therapy here. (7) Hypertension: Status: Chronic Assessment and plan: Given that his blood pressure is running a bit on the low side we will hold some of his blood pressure medications and reintroduce th em accordingly. (8) Alcoholic hepatitis: Status: Chronic Assessment and plan: Mild transaminase elevation on admission. I suspect these will improve with abstinence from alcohol. (9) COPD, mild: Status: Chronic Assessment and plan: Will have as needed bronchodilators available at his usual maintenance inhalers. (10) Anxiety and depression: Status: None Assessment and plan: Ongoing issues with anxiety and depression particularly related to the recent of his close friend. History of Present Illness History of Present Illness Chief Complaint: Warnicke Korsakoff syndrome/acute alcohol withdrawal syndrome Narrative: This is a 53-year-old man with long- term alcohol use disorder. He was seen in the emergency room last week because of worsening ataxia and nystagmus. He was actually set up for admission to the hospital but at the last minute left AGAINST MEDICAL ADVICE. Today he woke up had a few drinks and was having trouble walking. He became frustrated and return to the emergency room for evaluation. His stated concern was he thought he was having a stroke. In the emergency room he did not show focal motor dysfunction consistent with a CVA. He displayed significant nystagmus and ataxia and was diagnosed with Wernicke-Korsakoff syndrome. He got thiamine 100 mg IV in the emergency room. He is transferred to our intensive care unit for continued therapy. Review of Systems Narrative: Patient describes an inability to walk. He lives on the second floor of an apartment building. He has trouble just getting around his apartment not to mention doing the stairs. He states he has friends that do the shopping for him and help him with activities of daily living. He has not had recent chest pain or shortness of breath. He still smokes hea vily and drinks daily 18 beers a day. Today he had 3 beers and 3 shots of hard liquor. He is increasingly frustrated with his inability to walk. He had previously blamed it on his being drunk. He states he has been through rehab 5 times. He has been through alcohol withdrawal without seizures. 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 Dyslipidemia Dyspnea (Acute) Erectile dysfunction (Acute) Fatigue (Acute) Financial problems (Acute) GERD (gastroesophageal reflux disease) (Chronic) H/O: GI bleed (Acute) Hemoptysis (Resolved) Homelessness (Acute) Hyperlipemia (Chronic) Hypertension (Chronic) Imprisonment and other incarceration (Acute) Insomnia (Acute) Low back pain (Chronic) Periodic limb movement disorder (Acute) Peripheral neuropathy (Inactive) Prediabetes (Acute) PTSD (post-traumatic stress disorder) (Chronic) Restless leg syndrome (Inactive) Skin lesion of back (Resolved) Sleep apnea (Acute) Smoker (Chronic) 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 H/O colonoscopy with polypectomy (Resolved 03/31/15) Dr Jacome, rectal serrated adenoma, repeat in five years History of esophagogastroduodenoscopy (EGD) (Acute 04/29/18) Dr Hayden Lr, [facility] (colo attempted at same time, however poor prep, scheduled to be repeated, consult scheduled for 05/14/18) S/P coronary artery stent placement (Inactive) S/P drug eluting coronary stent placement (Resolved) S/P hernia repair (Acute) Family History Father Diabetes Heart disease Brother Heart disease Social History (Updated 04/18/19 @ 15:33 by Norm Rivera MD) Smoking/Tobacco Use Status: Current every day Tobacco Type: cigarettes Alcohol Intake: current Alcohol Intake frequency: 3 or more drinks per day Alcohol type: beer and hard liquor Drug use: Never Substance use type: does not use Details: TODAY---3 drinks of Vodka and a few beers Household members: none Housing: apartment Number of Children: 1 current occupation: Disabled What is your relationship status?: Panel score (0-1 are the most socially isolated patients): 0 What type of physical activity do you participate in: walking Seatbelt use: always Do you feel safe at home: Yes Meds Home Medications and Allergies Home Medications Medication Instructions Recorded Confirmed Type aspirin [Aspirin Low-Strength] 1 tab PO DAILY 09/14/17 04/18/19 History sertraline 50 mg PO HS 09/14/17 04/18/19 History albuterol sulfate 90 mcg/actuation 2 puff IH QID PRN 01/16/18 04/18/19 History aerosol inhaler atorvastatin 80 mg tablet 80 mg PO DAILY 01/16/18 04/18/19 History One-A-Day Men 50 Plus (ginkgo) 1 tab PO DAILY 04/27/18 04/18/19 History Trelegy Ellipta 2 inh INHALATION DAILY 04/27/18 04/18/19 History losartan 50 mg PO DAILY 04/27/18 04/18/19 History omeprazole 40 mg PO DAILY 04/27/18 04/18/19 History lidocaine 1 applic TOPICAL TID 10/02/18 04/18/19 History naproxen 500 mg PO BID PRN 10/02/18 04/18/19 History melatonin 3 mg capsule 3 mg PO HS PRN 01/22/19 04/18/19 History metoprolol succinate 100 mg 150 mg PO DAILY tab 01/22/19 04/18/19 History tablet,extended release 24 hr gabapentin 300 mg capsule 300 mg PO QHS #60 cap 02/25/19 04/18/19 Rx Allergies Allergy/AdvReac Type Severity Reaction Status Date / Time clonidine AdvReac Verified 02/25/19 09:50 Exam Narrative Exam Narrative: On exam he is disheveled appearing. He smells of alcohol. Despite this he is alert and interactive. His speech is clear and he seems to comprehend reasonably well. His thought processes are actually fairly clear. He has a friend with him who is on his H IPPA form. She helps him with a lot of his daily activities. He has no respiratory difficulties. His lung sounds are completely clear on the right and left. His heart sounds are regular. I do not detect any significant murmur. His abdomen is somewhat protuberant but overall soft and no HSM is detected. His lower extremities have a few minor abrasions but no swelling or effusions. Distal perfusion appears adequate. Neurologically has just a mild baseline tremor. He has nystagmus both to the right and to the left that does not attenuate with time. Results Labs Result diagrams: 04/18/19 11:10 04/18/19 11:10 Labs: Laboratory Results - last 24 hr 04/18/19 04/18/19 04/18/19 11:10 11:10 11:10 WBC 6.76 RBC 4.93 Hgb 15.5 Hct 45.4 MCV 92.1 MCH 31.4 MCHC 34.1 RDW 15.2 H Plt Count 84 L MPV 9.8 Immature Gran % 0.1 Neutrophils % 62.9 Lymphocytes % 25.0 Monocytes % 10.7 Eosinophils % 1.2 Basophils % 0.1 Absolute Neutrophils 4.25 Absolute Lymphocytes 1.69 Absolute Monocytes 0.72 H Absolute Eosinophils 0.08 Absolute Basophils 0.01 Differential Comment Diff reviewed RBC Morphology Normal Sodium 141 Potassium 3.7 Chloride 101 Carbon Dioxide 24.4 Anion Gap 15.6 H BUN 23 H Creatinine 0.72 Estimated GFR/1.73 m2 >= 60.00 Glucose 76 Calcium 7.9 L Magnesium 1.7 L Total Bilirubin 0.7 AST 180 H ALT 99 H Alkaline Phosphatase 164 H Troponin I < 0.05 Total Protein 7.7 Albumin 3.5 Ethyl Alcohol 424.8 Last Vital Signs Temp 36.6 C 04/18/19 14:00 Pulse 90 04/18/19 14:00 Resp 15 04/18/19 14:00 BP 150/73 H 04/18/19 14:00 Pulse Ox 96 04/18/19 14:00
[2019-04-18] MEDS: Magnesium Oxide 400 MG TAB PO (15:35)
[2019-04-18] MEDS: THIAMINE 500 MG in Normal Saline 100 ML 200 MG IVPB (15:35)
[2019-04-18] MEDS: DEXTROSE 5%-0.45% SALINE 1,000 ML 75 ML IV (15:38)
[2019-04-18] MEDS: Nicotine 14 MG/24 HR PATCH TD (17:37)
[2019-04-18] MEDS: Sertraline 50 MG TAB PO (20:24)
[2019-04-18] MEDS: Gabapentin 300 MG CAP PO (20:24)
[2019-04-19] VITALS (140 sets, daily range): BP systolic 108–152; BP diastolic 56–93; PULSE 80–126; RESP 13–36; TEMP 36.4–37.7; O2SAT 78–99
[2019-04-19] MEDS: THIAMINE 500 MG in Normal Saline 100 ML 200 MG IVPB ×3 (00:04→15:46)
[2019-04-19] MEDS: LORazepam 2 MG/ML VIAL IVP (01:22)
[2019-04-19] MEDS: DEXTROSE 5%-0.45% SALINE 1,000 ML 75 ML IV (06:31)
[2019-04-19 07:28] LABS: Absolute Basophil Count 0.01 k/cumm (0.0-0.2); Absolute Eosinophil Count 0.13 k/cumm (0.0-0.7); Absolute Lymphocyte Count 1.01 k/cumm (1.2-3.4); Absolute Monocyte Count 0.58 k/cumm (0.11-0.7); Absolute Neutrophil Count 3.44 k/cumm (1.2-6.7); Basophils % 0.2; Eosinophils % 2.5; HCT 37.9 % (40.0-50.0); HGB 13.1 g/dL (13.5-17.5); Lymphocytes % 19.5; Mean Corp. HGB Concentration 34.6 g/dL (32.0-36.0); Mean Corpuscular Hemoglobin 31.7 pg (27.0-33.0); Mean Corpuscular Volume 91.8 fL (80-95); Mean Platelet Volume 10.6 fL (8.0-11.0); Monocytes % 11.2; Neutrophils % 66.6; RBC 4.13 m/cumm (4.50-6.00); RBC Distribution Width 14.8 % (11.8-14.1); White Blood Cell Count 5.17 k/cumm (4.4-10.8)
[2019-04-19 07:46] LABS: Platelet Count 72 x1000/uL (130-400)
[2019-04-19 07:47] LABS: Diff Comment PLT Morph Reviewed; RBC Morphology Normal
[2019-04-19 07:51] LABS: ALT 67 U/L (16-63); AST 106 U/L (15-37); Albumin 2.8 g/dL (3.4-5.0); Alkaline Phosphatase 145 U/L (46-116); Anion Gap 10.6 mmol/L (3-11); BUN 12 mg/dL (7-18); CO2 28.4 mmol/L (21.0-32.0); Calcium 8.4 mg/dL (8.5-10.1); Chloride 99 mmol/L (98-107); Glucose 119 mg/dL (74-106); Magnesium 1.2 mg/dL (1.8-2.4); Potassium 3.7 mmol/L (3.5-5.1); Sodium 138 mmol/L (136-145); Total Protein 6.4 g/dL (6.4-8.2)
[2019-04-19] MEDS: Magnesium Oxide 400 MG TAB PO (08:55)
[2019-04-19] MEDS: Multivitamin TAB 1 TAB PO (08:58)
[2019-04-19] MEDS: Folic Acid 1 MG TAB PO (08:58)
[2019-04-19] MEDS: Omeprazole 20 MG CAPCR 40 MG PO (08:58)
--- NOTE | 2019-04-19 09:54 | PHARADMIT ---
Addendum entered by En Crockett III 04/21/19 10:32: Patient much improved, transferring to Med/Surg, dc'd last 2 doses of High dose IV Thiamine. CIWA score of 1 VS-OK Labs-WNL Patient to discharge home, Marketing Assistant Manager working on possible support services Original Note: Admission Pharmacy Clinical Review Wernicke's encephalopathy, alcohol withdrawal Code Status Full Code Current Weight 82.5 kg Renally Cleared and Narrow Therapeutic Index Meds Crcl ~108 mL/min current meds okay QTc Value / Action Taken QTc 482 BP Control, Fever BP 152/72 afebrile Electrolytes reviewed mag 1.2 iv and po replacement given DVT Prophylaxis none Opiate Usage / Scheduled Bowel Regimen Ordered no/prn Plt/SCr for Heparin / Enoxaparin plt 72 SCr 0.50 INR for Warfarin n/a H/H stable, WBC/Bands h/h 13.1/37.9 wbc 5.17 Antibiotic appropriateness none Cultures and Sensitivities none Surgical ABX d/c within 24 hr n/a DM control / Insulin Dosing BG 119 none Heart Failure (Check EF%) (JL's, B-Block, Diuretics) none IV to PO Switch n/a Home Meds Reviewed -naproxen may increase the bleeding risk and diminish the cardioprotective effects of aspirin, aspirin may decrease the serum concentration of naproxen -sertraline may enhance the antiplatelet effect of naproxen, naproxen may diminish the therapeutic effect of sertraline Home Meds Not Ordered aspirin, atorvastatin, lidocaine, losartan, melatonin, metoprolol, naproxen Comments -watch for the addition of any QTc prolonging meds -BP meds held as BP was on low side on admit; MD plans on watching and reintroducing them accordingly
[2019-04-19] MEDS: MAGNESIUM SULFATE 4 GM/100 ML BAG IVPB (10:37)
--- NOTE | 2019-04-19 12:35 | W.NUTCONSULT ---
Date of service: 04/19/19 Time of Service: 12:48 Nutritional Consult ASSESSMENT: 53 yo male admitted for Wenicke-Korsakoff Syndrome with alcohol abuse, alcoholic hepatitis with history of anxiety and depression. Following regular diet and receiving IV fluids, MVI, thiamin and folic acid. BMI in acceptable range for age. At nutritional risk in view of long history of alcohol abuse, and acute thiamine deficiency now being replaced IV. Will follow per high risk protocol and monitor po intake/weight trends and adjust meal plan as needed for optimal intake. Regular diet appropriate and well tolerated at this time. NUTRITIONAL DIAGNOSIS: Wernicke-Korsakoff syndrome INTERVENTION: thiamin replacement MONITORING AND EVALUATION: PO intake and weight trends Time Spent in Nutritional Counseling and Treatment: 15 min spent face to face
--- NOTE | 2019-04-19 17:10 | PDOC.CMIN ---
- If Service Date Differs Date of service: 04/19/19 Time of Service: 17:11 Care Management Initial Assess REASON FOR HOSPITALIZATION:: Wernicke-Korsakoff syndrome PAST MEDICAL HISTORY/PAST SURGICAL HISTORY:: PFSH. Medical History (Updated 04/18/19 @ 15:38 by Norm Rivera MD). Alcohol abuse. Alcoholic hepatitis (Chronic). Alcoholism (Chronic). Allergic rhinitis (Acute). 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 Anxiety and depression. Anxiety and depression (Chronic). Bloody sputum (Resolved). Cardiomyopathy (Chronic). ETOH induced. Complete left bundle branch block (LBBB) (Chronic). COPD (chronic obstructive pulmonary disease) (Chronic). Coronary artery disease. s/p PCI. DDD (degenerative disc disease), lumbar (Acute). Diarrhea (Resolved). Disorder of white blood cells (Acute). plasmacytoid looking lymphocytes. Dyslipidemia. Dyspnea (Acute). Erectile dysfunction (Acute). Fatigue (Acute). Financial problems (Acute). GERD (gastroesophageal reflux disease) (Chronic). H/O: GI bleed (Acute). Hemoptysis (Resolved). Homelessness (Acute). Hyperlipemia (Chronic). Hypertension (Chronic). Imprisonment and other incarceration (Acute). Insomnia (Acute). Low back pain (Chronic). Periodic limb movement disorder (Acute). Peripheral neuropathy (Inactive). Prediabetes (Acute). PTSD (post-traumatic stress disorder) (Chronic). Restless leg syndrome (Inactive). Skin lesion of back (Resolved). Sleep apnea (Acute). Smoker (Chronic). 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 Tobacco dependence. Surgical History (Updated 04/18/19 @ 15:32 by Norm Rivera MD). H/O colonoscopy (Acute 04/29/18). [facility], attempted, poor prep, r/s for 05/14/18 (consult), but patient no showed. H/O colonoscopy with polypectomy (Resolved 03/31/15). Dr Jacome, rectal serrated adenoma, repeat in five years. History of esophagogastroduodenoscopy (EGD) (Acute 04/29/18). [facility] Roberts (colo attempted at same time, however poor prep, scheduled to be repeated, consult scheduled for 05/14/18). S/P coronary artery stent placement (Inactive). S/P drug eluting coronary stent placement (Resolved). S/P hernia repair (Acute) PREVIOUS FUNCTIONAL STATUS/SOCIAL/FAMILY SUPPORTS:: Lawrence lives alone with his cat July in an apartment in [place]. He is currently unemployed and receives disability. He no longer drioves due to having 3 DUIs. Lawrence has one daughter who lives in [facility]. He states he has not had contact with her for 7 years. Lawrence has become increasingly unsteady on his feet over the past few months and states that he was scheduled to see his PCP today for this but missed the appointment due to his hospitalization. CURRENT FUNCTIONAL STATUS:: Lawrence was sitting up in bed when CM met with him. He appeared drowsy and stated that he was sleepy from the medication he has been receiving. In a general discussion about discharge plans, CM asked if Lawrence was interested in rehab. He stated that he is not. He shared that he has gone throught the [facility] program four times. He stated that he has all of the toolds he needs to be successful, he just needs to use them. ADVANCE DIRECTIVES:: I'm working on them Has patient been provided with information about the portal?: No Did the patient sign up for the portal?: No CODE STATUS:: Full Code INSURANCE COVERAGE / FINANCIAL ISSUES:: Medicaid CURRENT HOME/COMMUNITY SERVICES/EQUIPMENT:: Lawrence receives disability and food stamps PRIMARY CARE PHYSICIAN:: Emilee George POTENTIAL DISCHARGE NEEDS:: follow up with PCP and discharge plan of care PATIENT/FAMILY EDUCATION NEEDS:: Discharge plan, limitations, follow up plan, Ask Me Three. TRANSPORTATION:: via private vehicle with friend or RCT PLAN:: Lawrence is likely going to be discharged home with no additional services. He will follow up with his PCP and discharge plan of care. CM will continue to support Lawrence and his discharge p[thomas needs.
--- NOTE | 2019-04-19 18:52 | W.PM.PROGNOT ---
Date of Service Date of service: 04/19/19 Time of Service: 18:53 Assessment and Plan Assessment and plan (1) Wernicke-Korsakoff syndrome (alcoholic): Status: Acute Assessment and plan: He is getting IV thiamine 500 mg 3 times daily. He is tolerating that fine. He is also getting magnesium 4 g over 4 hours. Not much impact on his ataxia as of yet. (2) Alcohol abuse: Status: None Assessment and plan: No signs of severe withdrawal yet. Continue [facility] protocol. (3) Tobacco dependence: Status: None Assessment and plan: Written for Nicotrol inhaler in addition to the nicotine patch. (4) Cardiomyopathy: Status: Chronic Assessment and plan: No evidence of overt heart failure at this time. He remained stable. Subjective Subjective Interval history since last seen: He continues to have severe ataxia. He is very unsteady on his feet. He is displaying only minor withdrawal symptoms at this point. He is still oriented to person time and place. He is eating and drinking fine. Exam Narrative Exam Narrative: On exam I saw him both in bed and sitting in the chair. He can sit upright without difficulty. He does have a minor tremor with his arms extended. He is alert and appropriate at this time. Breathing is not at all labored. He still has nystagmus at a slightly lower rate than yesterday. Objective Objective Clinical Data: Abnormal lab results 04/19/19 04/19/19 Range/Units 06:30 06:30 RBC 4.13 L (4.50-6.00) m/cumm Hgb 13.1 L D (13.5-17.5) g/dL Hct 37.9 L (40.0-50.0) % RDW 14.8 H (11.8-14.1) % Plt Count 72 L (130-400) x1000/uL Absolute Lymphocytes 1.01 L (1.2-3.4) k/cumm Creatinine 0.50 L (0.70-1.30) mg/dL Glucose 119 H (74-106) mg/dL Calcium 8.4 L (8.5-10.1) mg/dL Magnesium 1.2 L (1.8-2.4) mg/dL AST 106 H (15-37) U/L ALT 67 H (16-63) U/L Alkaline Phosphatase 145 H (46-116) U/L Albumin 2.8 L (3.4-5.0) g/dL Vital Signs Temperature 36.4 C L 04/19/19 15:30 Temperature Source Tympanic 04/19/19 15:30 Pulse 104 H 04/19/19 15:30 Pulse 95 H 04/19/19 17:20 Respiratory Rate 27 H 04/19/19 17:20 Respiratory Effort 04/19/19 15:30 Respiratory Depth Normal 04/19/19 15:30 Respiratory Pattern Normal 04/19/19 15:30 Blood Pressure 128/76 04/19/19 15:30 Blood Pressure Mean 93 04/19/19 15:30 Blood Pressure Position Sitting 04/19/19 15:30 Pulse Oximetry 86 L 04/19/19 17:20 Oxygen Delivery Method Room Air 04/19/19 15:30 Oxygen Flow Rate 0 04/19/19 15:30 Pain Level 0 04/19/19 15:30 Intake & Output 04/18/19 04/19/19 04/19/19 23:59 11:59 23:59 Intake Total 3885 / 3885 1958.75 / 2298.75 340 / 2298.75 Output Total 600 / 600 Balance 3285 / 3285 1958.75 / 2298.75 340 / 2298.75 Weight 74.843 kg 82.5 kg Intake: IV 1105 / 1105 1538.75 / 1638.75 100 / 1638.75 Oral 2780 / 2780 420 / 660 240 / 660 Output: Urine 300 / 300 Stool 300 / 300 Other: Urine Color Dark Lilliam Urine Odor None Comment volume est. mixed in stool voided with liquid stool Stool Occult Blood Negative Negative Stool Size Moderate Stool Characteristics Liquid Soft Brown Voiding Methods Bedside Commode Laboratory Results WBC 5.17 k/cumm (4.4-10.8) 04/19/19 06:30 RBC 4.13 m/cumm (4.50-6.00) L 04/19/19 06:30 Hgb 13.1 g/dL (13.5-17.5) L D 04/19/19 06:30 Hct 37.9 % (40.0-50.0) L 04/19/19 06:30 MCV 91.8 fL (80-95) 04/19/19 06:30 MCH 31.7 pg (27.0-33.0) 04/19/19 06:30 MCHC 34.6 g/dL (32.0-36.0) 04/19/19 06:30 RDW 14.8 % (11.8-14.1) H 04/19/19 06:30 Plt Count 72 x1000/uL (130-400) L 04/19/19 06:30 MPV 10.6 fL (8.0-11.0) 04/19/19 06:30 Immature Gran % 0.0 04/19/19 06:30 Neutrophils % 66.6 04/19/19 06:30 Lymphocytes % 19.5 04/19/19 06:30 Monocytes % 11.2 04/19/19 06:30 Eosinophils % 2.5 04/19/19 06:30 Basophils % 0.2 04/19/19 06:30 Absolute Neutrophils 3.44 k/cumm (1.2-6.7) 04/19/19 06:30 Absolute Lymphocytes 1.01 k/cumm (1.2-3.4) L 04/19/19 06:30 Absolute Monocytes 0.58 k/cumm (0.11-0.7) 04/19/19 06:30 Absolute Eosinophils 0.13 k/cumm (0.0-0.7) 04/19/19 06:30 Absolute Basophils 0.01 k/cumm (0.0-0.2) 04/19/19 06:30 Differential Comment Plt morph reviewed 04/19/19 06:30 RBC Morphology Normal 04/19/19 06:30 Sodium 138 mmol/L (136-145) 04/19/19 06:30 Potassium 3.7 mmol/L (3.5-5.1) 04/19/19 06:30 Chloride 99 mmol/L (98-107) 04/19/19 06:30 Carbon Dioxide 28.4 mmol/L (21.0-32.0) 04/19/19 06:30 Anion Gap 10.6 mmol/L (3-11) 04/19/19 06:30 BUN 12 mg/dL (7-18) D 04/19/19 06:30 Creatinine 0.50 mg/dL (0.70-1.30) L 04/19/19 06:30 Estimated GFR/1.73 m2 >= 60.00 (mL/min/1.73m2) 04/19/19 06:30 Glucose 119 mg/dL (74-106) H 04/19/19 06:30 Calcium 8.4 mg/dL (8.5-10.1) L 04/19/19 06:30 Magnesium 1.2 mg/dL (1.8-2.4) L 04/19/19 06:30 Total Bilirubin 1.0 mg/dL (0.2-1.0) 04/19/19 06:30 AST 106 U/L (15-37) H 04/19/19 06:30 ALT 67 U/L (16-63) H 04/19/19 06:30 Alkaline Phosphatase 145 U/L (46-116) H 04/19/19 06:30 Troponin I < 0.05 ng/Ml (<0.06) 04/18/19 11:10 Total Protein 6.4 g/dL (6.4-8.2) 04/19/19 06:30 Albumin 2.8 g/dL (3.4-5.0) L 04/19/19 06:30 Ethyl Alcohol 424.8 mg/dL (<3) 04/18/19 11:10
[2019-04-19] MEDS: Sertraline 50 MG TAB PO (21:58)
[2019-04-19] MEDS: Gabapentin 300 MG CAP PO (21:58)
[2019-04-20] VITALS (41 sets, daily range): BP systolic 115–157; BP diastolic 67–90; PULSE 80–119; RESP 13–41; TEMP 36.6–36.8; O2SAT 86–97
[2019-04-20] MEDS: THIAMINE 500 MG in Normal Saline 100 ML 200 MG IVPB ×3 (00:23→17:14)
[2019-04-20] MEDS: DEXTROSE 5%-0.45% SALINE 1,000 ML 75 ML IV ×2 (00:26→16:11)
[2019-04-20] MEDS: LORazepam 2 MG/ML VIAL IVP ×2 (02:29→04:15)
[2019-04-20] MEDS: Normal Saline Flush 10 ML SYR IVP ×2 (02:30→04:42)
[2019-04-20 07:24] LABS: HCT 39.1 % (40.0-50.0); HGB 13.3 g/dL (13.5-17.5); Mean Corpuscular Hemoglobin 31.7 pg (27.0-33.0); Mean Corpuscular Volume 93.1 fL (80-95); Mean Platelet Volume 10.9 fL (8.0-11.0); RBC Distribution Width 14.8 % (11.8-14.1); White Blood Cell Count 4.79 k/cumm (4.4-10.8)
[2019-04-20 07:34] LABS: Anion Gap 7.6 mmol/L (3-11); BUN 6 mg/dL (7-18); CO2 30.4 mmol/L (21.0-32.0); CREATININE 0.57 mg/dL (0.70-1.30); Calcium 8.6 mg/dL (8.5-10.1); Chloride 102 mmol/L (98-107); Glucose 138 mg/dL (74-106); Magnesium 1.3 mg/dL (1.8-2.4); Potassium 3.4 mmol/L (3.5-5.1); Sodium 140 mmol/L (136-145)
[2019-04-20 07:51] LABS: Platelet Count 76 x1000/uL (130-400)
--- NOTE | 2019-04-20 08:41 | PT.INIE ---
Date of service: 04/20/19 Time of Service: 09:41 PT Notes Visit Reasons: WARNICKE'S ENCEPHALOPATHY, ALCOHOL WITHDRAWAL Physical Therapy Inpatient Initial Evaluation Date: 04/20/2019 Referring Doctor: Hussein Clements MD PT Orders: PT CONSULT: Limited ability. Ataxia, likely due to alcohol, fall risk Precautions: Fall. Standard. Activity as tolerated. Patient Profile/Admitting Diagnosis: Patient is a 53-year-old male with past medical history significant for coronary artery disease who presented to the ED on 04/18/2019 with chief presentation of difficulty walking and slurred speech. Patient patient was admitted to the ED with the same condition last week but left AMA. Patient is diagnosed with Wernicke's/Korsakoff syndrome, EtOH abuse, and ambulatory dysfunction. Referral to physical therapy was made in order to address impairments in strength, balance, and activity tolerance. 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 Dyslipidemia Dyspnea (Acute) Erectile dysfunction (Acute) Fatigue (Acute) Financial problems (Acute) GERD (gastroesophageal reflux disease) (Chronic) H/O: GI bleed (Acute) Homelessness (Acute) Hyperlipemia (Chronic) Hypertension (Chronic) Imprisonment and other incarceration (Acute) Insomnia (Acute) Low back pain (Chronic) Periodic limb movement disorder (Acute) Prediabetes (Acute) PTSD (post-traumatic stress disorder) (Chronic) Sleep apnea (Acute) Smoker (Chronic) Surgical History H/O colonoscopy (Acute 04/29/18) Dr Hayden Lr, [facility], attempted, poor prep, r/s for 05/14/18 (consult), but patient no showed. H/O colonoscopy with polypectomy (Resolved 03/31/15) Dr Jacome, rectal serrated adenoma, repeat in five years History of esophagogastroduodenoscopy (EGD) (Acute 04/29/18) Dr Hayden Lr, [facility] (colo attempted at same time, however poor prep, scheduled to be repeated, consult scheduled for 05/14/18) S/P coronary artery stent placement (Inactive) S/P hernia repair (Acute) Social History/Home Situation: Patient lives alone in an apartment with 18 steps to enter with rails on both sides. Patient has been on disability benefits for the past 8 months. He is independent with all aspects of ADLs without the need for an assistive device nor adaptive equipment although he states that he has not had the energy to cook and therefore has not been eating well. Equipment Owned/DME: None Subjective: Patient is agreeable to a PT consult. He denies headache, chest pain, and dizziness throughout PT session. He does report having balance issues for a long time now making him lose balance at home and uses furniture is on a wall to regain his equilibrium. He states he has fallen more than 5 times now for the past 12 months. He is still grieving the loss of a very good friend who passed early this year.. Objective: General Observation: Patient seen resting in bed upon arrival of PT. Oxygen supplementation at 1 L/min via NC. Telemetry monitoring in place. Bilateral to TEDS on. Mental Status: Alert and oriented x4 Pain: None Vital Signs: Blood pressure before exercise 153/90 mmHg, after exercise 152/70 7 mmHg. ROM: Right Upper Extremity: Shoulder Flexion WFL. Shoulder abduction WFL. Elbow flexion WFL. Wrist flexion WFL. Opening and closing of hand WFL. Left Upper Extremity: Shoulder Flexion WFL. Shoulder abduction WFL. Elbow flexion WFL. Wrist flexion WFL. Opening and closing of hand WFL. Right Lower Extremity: Hip flexion WFL. Hip abduction WFL. Knee flexion WFL. Ankle dorsiflexion WFL. Ankle plantarflexion WFL. Left Lower Extremity: Hip flexion WFL. Hip abduction WFL. Knee flexion WFL. Ankle dorsiflexion WFL. Ankle plantarflexion WFL. Strength: Right Upper Extremity: Shoulder flexors 5/5. Shoulder abductors 5/5. Elbow flexors 5/5. Elbow extensors 5/5. Flight Director strong. Left Upper Extremity: Shoulder flexors 5/5. Shoulder abductors 5/5. Elbow flexors 5/5. Elbow extensors 5/5. Flight Director strong. Right Lower Extremity: Hip flexors 4/5. Hip abductors 5/5. Knee flexors 5/5. Knee extensors 4/5. Ankle dorsiflexors 5/5. Ankle plantarflexors 5/5. Left Lower Extremity:Hip flexors 4/5. Hip abductors 5/5. Knee flexors 5/5. Knee extensors 4/5. Ankle dorsiflexors 5/5. Ankle plantarflexors 5/5. Sensation: Intact as to pain and pressure on bilateral lower extremities. Bed Mobility/Transfers: Rolling supervision Supine to sit supervision Sit to supine supervision Sit to stand CGA Stand to sit CGA Bed to chair CGA Chair to bed CGA Gait: Patient tolerated level surface ambulation of 80 feet using front wheeled walker and CGA of PT, 2 episodes of LOB observed requiring patient to stop and regain balance with minimal assist of PT. Patient states that he has been like this for several months now. Balance: Static Sitting: Normal Dynamic Sitting: Normal Static Standing: Fair Dynamic Standing: Fair Special Tests: Mobility Limitations Standardized Measure [facility] 6 clicks Basic Mobility Inpatient Short Form: Raw Score: 18 CMS Score: 47% deficit Informed Consent/Education: Patient instructed in purpose of PT consult and plan of care. Patient was given instructions on doing seated level exercises consisting of seated marches and bilateral leg raises x20 in the morning and in the afternoon. Assessment: Patient is a 53-year-old male with past medical history significant for coronary artery disease who presented to the ED on 04/18/2019 with chief presentation of difficulty walking and slurred speech. Patient patient was admitted to the ED with the same condition last week but left AMA. Patient is diagnosed with Wernicke's/Korsakoff syndrome, EtOH abuse, and ambulatory dysfunction now presenting with impairment level findings and functional limitations as listed below. Patient presents with clinical signs and symptoms consistent with current/admitting diagnoses that have resulted to mobility limitations, gait instability, generalized weakness, and impairment of motor control as demonstrated by the following impairment level findings: 1. Decreased strength to B hip flexors and knee extensors major muscle groups 2. Impaired standing balance 3. Impaired activity tolerance 4. Ataxia Impairments are contributing to the following functional limitations: 1. Inability to safely ambulate without assistive device and physical assistance 2. Increase completion time for mobility ADL performance 3. Increased fall risk 4. Inability to negotiate steps alone safely Patient is assessed as a 51071 moderate complexity based on the following: History: 53-year-old male with past medical history significant for coronary artery disease and EtOH abuse impairment level findings, functional limitations, and [facility] CMS deficit score of 47% Examination: Demonstrable impairment in strength, balance, and range of motion with underlying impairments and functional limitations as documented above Presentation: Evolving Decision Makin moderate complexity Goals: Goals X1 week 1. Supine-Sit independent 2. Sit-Supine independent 3. Sit-Stand independent 4. Stand-Sit independent 5. Bed-Chair independent 6. Chair-Bed independent 7. Independent gait on level surface with use of least restrictive device for at least 300 feet without report of pain nor dyspnea 8. Independent stair negotiation while holding onto bilateral rails for at least 15 steps without report of pain nor dyspnea 9. Independent with home exercise program 10. Good static and dynamic standing balance/tolerance Plan of Care/Treatment Plan: 1-2x/day, 7 days/week x 1 week. Plan of care has been reviewed with the MANAGER OF REVENUE providing the service under Physical Therapy direction. Initiate Physical Therapy intervention for strengthening, bed mobility, transfers, gait, stairs, balance training, use of assistive device. DISCHARGE RECOMMENDATIONS: Patient will benefit from home health PT services in order to progress mobility level using least restrictive assistive ambulatory device, assess home safety, identify additional equipment needs, and establish a functional maintenance program that will increase ability of patient to remain at home. TREATMENT CODE/TIME: 95651 x 34 minutes beginning at 8:41 AM. No milk via no to feel we would have to go through 0 the multiple knife edge trimmer operator Thank you very much for this referral. Chantel Ribeiro PT, DPT, CLT [facility] [place], [place]
[2019-04-20] MEDS: Multivitamin TAB 1 TAB PO (08:43)
[2019-04-20] MEDS: Metoprolol CR 100 MG TABCR PO (08:43)
[2019-04-20] MEDS: Omeprazole 20 MG CAPCR 40 MG PO (08:43)
[2019-04-20] MEDS: Atorvastatin 40 MG TAB 80 MG PO (08:43)
[2019-04-20] MEDS: Folic Acid 1 MG TAB PO (08:43)
[2019-04-20] MEDS: Potassium Chloride 20 MEQ TABCR PO (08:43)
[2019-04-20] MEDS: Magnesium Oxide 400 MG TAB PO (08:43)
[2019-04-20] MEDS: Nicotine 14 MG/24 HR PATCH TD (08:49)
--- NOTE | 2019-04-20 09:53 | RESPIRATORY ---
Pt stated that he used to have a CPAP machine to use at home through [facility], but gave it back because no matter what setting it was on, he felt like he was choking and could not tolerate it. Pt also stated that he has been working with his PCP to try alternatives.
--- NOTE | 2019-04-20 13:17 | W.PM.PROGNOT ---
Date of Service Date of service: 04/20/19 Time of Service: 13:17 Assessment and Plan Assessment and plan (1) Wernicke-Korsakoff syndrome (alcoholic): Status: Acute Assessment and plan: Receiving IV thiamine without complication. Mental status seems to be improving. He has not been up enough to know whether or not his ataxia has improved. Hopefully will with time, abstinence from alcohol and vitamin supplementation. No change in management at this time. (2) Alcohol abuse: Status: None Assessment and plan: Minimal signs of withdrawal to date. Over the next 48 hours we may see more symptoms. Continue to monitor in the ICU because of risk. (3) Coronary artery disease: Status: None Assessment and plan: Asymptomatic. I am restarting his beta-dakota and statin. Aspirin currently on hold, low threshold to resume this if no signs of GI upset or bleeding. (4) Cardiomyopathy: Status: Chronic Assessment and plan: No decompensation at this time. Blood pressure a bit soft, losartan remains on hold. (5) COPD, mild: Status: Chronic Assessment and plan: No symptoms of exacerbation. Continue Trelegy inhaler. (6) Hypertension: Status: Chronic Assessment and plan: Blood pressures acceptable with losartan on hold and reintroduction of metoprolol. Continue to follow and if blood pressure goes up we will start back on losartan. (7) Anxiety and depression: Status: None Assessment and plan: Continue sertraline. Outpatient records are little vague in the dosing?75 mg versus 100 mg? Continue the present dose for now. (8) Restless leg syndrome: Status: Acute Assessment and plan: Gabapentin initiated to treat this. Continue current dose with low threshold to discontinue if he finds it ineffective. (9) Hypokalemia: Status: Acute Assessment and plan: Oral supplementation initiated. Recheck tomorrow. (10) Hypomagnesemia: Status: Acute Assessment and plan: Received IV magnesium soon after admission, on oral supplement now and I will recheck magnesium level in 48 hours. Subjective Subjective Interval history since last seen: Patient has had some mild tremor overnight and had received 2 doses of lorazepam before 6 AM leaving him a little sedated this morning. He feels better and is easily arousable in conversation with me. States that he has been through multiple different treatment strategies for his chronic alcohol use and none of had lasting. Treatments have included outpatient and residential treatment as well as disulfiram and acamprosate. He does not recognize naltrexone as a medication that he has tried in the past for maintaining sobriety. He has not had any problems with a cough. He denies any chest pain. He denies orthopnea. His oxygen saturations on room air have been satisfactory. He continues to have loose stools which she states is a chronic problem whenever he drinks to excess. No blood noted. He denies abdominal pain or cramping. Exam Narrative Exam Narrative: Easily arousable, no respiratory distress. Slight intention tremor of the upper extremities. Sinus tachycardia on telemetry. Pupils are equal and reactive, no nystagmus elicited. No facial asymmetry. Lungs are clear. No heart murmur S3 or S4. Active bowel sounds, abdomen soft and nontender. No pitting edema. Good pulses distally. 2+ DTRs at the knees and elbows symmetrically. Sits up with slight assistance. No truncal ataxia once he is sitting upright. I did not observe him walk this morning. Objective Objective Clinical Data: Abnormal lab results 04/20/19 04/20/19 Range/Units 06:15 06:15 RBC 4.20 L (4.50-6.00) m/cumm Hgb 13.3 L (13.5-17.5) g/dL Hct 39.1 L (40.0-50.0) % RDW 14.8 H (11.8-14.1) % Plt Count 76 L (130-400) x1000/uL Potassium 3.4 L (3.5-5.1) mmol/L BUN 6 L (7-18) mg/dL Creatinine 0.57 L (0.70-1.30) mg/dL Glucose 138 H (74-106) mg/dL Magnesium 1.3 L (1.8-2.4) mg/dL Vital Signs Temperature 36.8 C 04/20/19 11:42 Temperature Source Tympanic 04/20/19 11:42 Pulse 103 H 04/20/19 11:42 Pulse 99 H 04/20/19 11:00 Respiratory Rate 18 04/20/19 11:42 Respiratory Effort 04/20/19 11:42 Respiratory Depth Normal 04/20/19 11:42 Respiratory Pattern Normal 04/20/19 11:42 Blood Pressure 132/69 04/20/19 11:42 Blood Pressure Mean 90 04/20/19 11:42 Blood Pressure Position Right Lateral 04/20/19 03:00 Pulse Oximetry 97 04/20/19 11:42 Oxygen Delivery Method Room Air 04/20/19 11:42 Oxygen Flow Rate 0 04/20/19 11:42 Pain Level 0 04/20/19 11:42 Intake & Output 04/19/19 04/20/19 04/20/19 23:59 11:59 23:59 Intake Total 745 / 2703.75 585 / 585 Output Total 1000 / 1000 820 / 820 Balance -255 / 1703.75 -235 / -235 Weight 82.5 kg Intake: IV 205 / 1743.75 105 / 105 Oral 540 / 960 480 / 480 Output: Urine 1000 / 1000 470 / 470 Stool 350 / 350 Other: Urine Color Yellow Yellow Urine Appearance Clear Clear Urine Odor None Comment urine was not noted in the commode mix at this time approximate amount, mixed with urine Stool Occult Blood Negative Stool Size Small Moderate Stool Characteristics Liquid Soft Formed Voiding Methods Urinal Laboratory Results WBC 4.79 k/cumm (4.4-10.8) 04/20/19 06:15 RBC 4.20 m/cumm (4.50-6.00) L 04/20/19 06:15 Hgb 13.3 g/dL (13.5-17.5) L 04/20/19 06:15 Hct 39.1 % (40.0-50.0) L 04/20/19 06:15 MCV 93.1 fL (80-95) 04/20/19 06:15 MCH 31.7 pg (27.0-33.0) 04/20/19 06:15 MCHC 34.0 g/dL (32.0-36.0) 04/20/19 06:15 RDW 14.8 % (11.8-14.1) H 04/20/19 06:15 Plt Count 76 x1000/uL (130-400) L 04/20/19 06:15 MPV 10.9 fL (8.0-11.0) 04/20/19 06:15 Immature Gran % 0.0 04/19/19 06:30 Neutrophils % 66.6 04/19/19 06:30 Lymphocytes % 19.5 04/19/19 06:30 Monocytes % 11.2 04/19/19 06:30 Eosinophils % 2.5 04/19/19 06:30 Basophils % 0.2 04/19/19 06:30 Absolute Neutrophils 3.44 k/cumm (1.2-6.7) 04/19/19 06:30 Absolute Lymphocytes 1.01 k/cumm (1.2-3.4) L 04/19/19 06:30 Absolute Monocytes 0.58 k/cumm (0.11-0.7) 04/19/19 06:30 Absolute Eosinophils 0.13 k/cumm (0.0-0.7) 04/19/19 06:30 Absolute Basophils 0.01 k/cumm (0.0-0.2) 04/19/19 06:30 Differential Comment Plt morph reviewed 04/19/19 06:30 RBC Morphology Normal 04/19/19 06:30 Sodium 140 mmol/L (136-145) 04/20/19 06:15 Potassium 3.4 mmol/L (3.5-5.1) L 04/20/19 06:15 Chloride 102 mmol/L (98-107) 04/20/19 06:15 Carbon Dioxide 30.4 mmol/L (21.0-32.0) 04/20/19 06:15 Anion Gap 7.6 mmol/L (3-11) 04/20/19 06:15 BUN 6 mg/dL (7-18) L 04/20/19 06:15 Creatinine 0.57 mg/dL (0.70-1.30) L 04/20/19 06:15 Estimated GFR/1.73 m2 >= 60.00 (mL/min/1.73m2) 04/20/19 06:15 Glucose 138 mg/dL (74-106) H 04/20/19 06:15 Calcium 8.6 mg/dL (8.5-10.1) 04/20/19 06:15 Magnesium 1.3 mg/dL (1.8-2.4) L 04/20/19 06:15 Total Bilirubin 1.0 mg/dL (0.2-1.0) 04/19/19 06:30 AST 106 U/L (15-37) H 04/19/19 06:30 ALT 67 U/L (16-63) H 04/19/19 06:30 Alkaline Phosphatase 145 U/L (46-116) H 04/19/19 06:30 Troponin I < 0.05 ng/Ml (<0.06) 04/18/19 11:10 Total Protein 6.4 g/dL (6.4-8.2) 04/19/19 06:30 Albumin 2.8 g/dL (3.4-5.0) L 04/19/19 06:30 Ethyl Alcohol 424.8 mg/dL (<3) 04/18/19 11:10
--- NOTE | 2019-04-20 15:17 | PDOC.CMPRO ---
- If Service Date Differs Date of service: 04/20/19 Time of Service: 15:17 Care Management Progress Note S/O: Lawrence was sitting up in a chair eating lunch when CM met with him. He was alert and oriented and smiling. He stated that he was feeling much improved and that he is now walking better with PT using a walker. He shared that he would like to have a walker when he is discharged. Lawrence again stated firmly that he is not interested in going to rehab. He feels he has a good system of support in the friends that live near him. He has worked with [facility] in the past and has contact information. A; Lawrence is a 53 year old man admitted on 04/18/19 with Wernicke-Korsakoff syndome P: Lawrence is likely going to be discharged home with no additional services. He will follow up with his PCP and discharge plan of care. CM will continue to support Lawrence and his discharge planning needs.
--- NOTE | 2019-04-20 16:23 | PT.INTREAT ---
Date of service: 04/20/19 Time of Service: 16:23 PT Notes Visit Reasons: WARNICKE'S ENCEPHALOPATHY, ALCOHOL WITHDRAWAL Inpatient Physical Therapy Treatment Note [facility] Date: 04/20/19 PRECAUTIONS: Fall, activity as tolerated SUBJECTIVE: Lawrence states that he is feeling better today, and he feels that he is walking and moving better. OBJECTIVE: PAIN: No c/o pain BED MOBILITY/TRANSFERS Supine-sit: I with HOB flat Sit?supine: I with HOB flat Sit-stand: I Stand-sit: I GAIT Assistive Device: FWW Weight bearing: Full Assist: CGA-SBA Distance: 300' Deviation: Ataxic gait with LOB x2 requiring Min A for recovery STAIRS: Up/down 6x4 and 4x6 using B rails and a step-over pattern with CGA, patient requires cueing for decreased pace. ASSESSMENT: Patient tolerated session well, tolerating a progression in gait distance with FWW support and CGA-SBA, requiring Min A for recovery from LOB x2. He would benefit from continued gait and transfer training, as well as strengthening for improved mobility. PLAN: Continue with PT's POC TREATMENT CODE/TIME: Session 1: 30 minutes; 42297 x2
[2019-04-20] MEDS: Sertraline 50 MG TAB PO (22:24)
[2019-04-20] MEDS: Gabapentin 300 MG CAP PO (22:24)
[2019-04-21] VITALS (20 sets, daily range): BP systolic 127–158; BP diastolic 63–84; PULSE 73–123; RESP 13–30; TEMP 36.3–37.3; O2SAT 91–97
[2019-04-21] MEDS: THIAMINE 500 MG in Normal Saline 100 ML 200 MG IVPB (00:10)
[2019-04-21 06:20] LABS: Anion Gap 10.4 mmol/L (3-11); BUN 6 mg/dL (7-18); CO2 27.6 mmol/L (21.0-32.0); CREATININE 0.58 mg/dL (0.70-1.30); Calcium 8.9 mg/dL (8.5-10.1); Chloride 103 mmol/L (98-107); Glucose 138 mg/dL (74-106); Magnesium 0.9 mg/dL (1.8-2.4); Potassium 3.9 mmol/L (3.5-5.1); Sodium 141 mmol/L (136-145)
[2019-04-21] MEDS: Omeprazole 20 MG CAPCR 40 MG PO (07:31)
[2019-04-21] MEDS: Folic Acid 1 MG TAB PO (07:32)
[2019-04-21] MEDS: Metoprolol CR 100 MG TABCR PO (07:33)
[2019-04-21] MEDS: Potassium Chloride 20 MEQ TABCR PO (07:33)
[2019-04-21] MEDS: Atorvastatin 40 MG TAB 80 MG PO (07:33)
[2019-04-21] MEDS: Magnesium Oxide 400 MG TAB PO (07:33)
[2019-04-21] MEDS: Multivitamin TAB 1 TAB PO (07:33)
[2019-04-21] MEDS: Thiamine 100 MG TAB PO (07:35)
[2019-04-21] MEDS: Losartan 50 MG TAB PO (07:35)
[2019-04-21] MEDS: Nicotine 14 MG/24 HR PATCH TD (07:38)
--- NOTE | 2019-04-21 07:53 | PDOC.CMPRO ---
Care Management Progress Note S/O: Lawrence continues to make gains medically and with physical therapy, he will transfer to MED/SURG status today. Lawrence continues to decline rehab, he worked with PT today who reported great improvement. He reports a positive local support system. He has worked with [facility] in the past and has contact information. CM continues to follow. A; Lawrence is a 53 year old man admitted on 04/18/19 with Wernicke-Korsakoff syndome P: Lawrence is likely going to be discharged home with no additional services, anticipate a new FWW coordinated by CM, and possible in home VNA supports for ongoing strengthening including PT/OT per recommendations. He will follow up with his PCP and discharge plan of care. CM will continue to support Lawrence and his discharge planning needs.
[2019-04-21] MEDS: MAGNESIUM SULFATE 4 GM/100 ML BAG IVPB (09:13)
--- NOTE | 2019-04-21 11:38 | PT.INTREAT ---
Date of service: 04/21/19 Time of Service: 11:38 PT Notes Visit Reasons: WARNICKE'S ENCEPHALOPATHY, ALCOHOL WITHDRAWAL Inpatient Physical Therapy Treatment Note [facility] Date: 04/21/2019 PRECAUTIONS: Fall, activity as tolerated SUBJECTIVE: Lawrence reports that he is feeling much better today, he reports that he has been independent within his room with transfers and ambulation. OBJECTIVE: PAIN: No c/o pain BED MOBILITY/TRANSFERS Supine-sit: I with HOB flat Sit?supine: I with HOB flat Sit-stand: I Stand-sit: I GAIT Assistive Device: FWW Weight bearing: Full Assist: S Distance: 400' Deviation: No LOB STAIRS: Up/down 6x4 and 4x6 using B rails and a step-over pattern with supervision ASSESSMENT: Patient tolerated session well, tolerating a progression in gait distance with FWW support and supervision without LOB. PLAN: Continue with PT's POC TREATMENT CODE/TIME: 15 minutes; [id number]
[2019-04-21] MEDS: Normal Saline Flush 10 ML SYR IVP (12:57)
--- NOTE | 2019-04-21 14:52 | NUR.NOTE ---
Nursing Note: Pt transferred to rm 219 from the ICU. VSS. A&Ox3. denies pain. steady gait. HR reg. LS clear. Nicotine patch on left upper back. oriented to room. Instructed to ring for assist before getting up.
--- NOTE | 2019-04-21 15:31 | PGE_ITS ---
Date of Service Date of service: 04/21/19 Time of Service: 06:32 Assessment and Plan Assessment and plan (1) Wernicke-Korsakoff syndrome (alcoholic): Status: Acute Assessment and plan: All of his initial symptoms have resolved?no ataxia or nystagmus. His IV is infiltrated and I am switching him to oral thiamine. (2) Alcohol abuse: Status: None Assessment and plan: Remarkably little in the way of withdrawal symptoms. He has not shown continued nystagmus or ataxia and I wonder if his presenting symptoms were all due to acute inebriation? Continue to monitor for withdrawal. If he has minimal to no symptoms is likely we can discharge him tomorrow. I am switching thiamine to p.o. (3) Coronary artery disease: Status: None Assessment and plan: Asymptomatic. I am restarting his beta-dakota and statin. He has had no GI symptoms, looks well. I am restarting his aspirin. Continue PPI for GI protection. (4) Cardiomyopathy: Status: Chronic Assessment and plan: No decompensation at this time. Follow with beta- dakota, ARB. (5) COPD, mild: Status: Chronic Assessment and plan: No symptoms of exacerbation. Continue Trelegy i nhaler. (6) Hypertension: Status: Chronic Assessment and plan: Blood pressure creeping up. Losartan restarted, I am putting him back on his outpatient dose of metoprolol 150 mg. Monitor blood pressure response. (7) Anxiety and depression: Status: None Assessment and plan: Continue sertraline (8) Restless leg syndrome: Status: Acute Assessment and plan: Gabapentin initiated to treat this. No obvious adverse effects, continue current dosing. (9) Hypokalemia: Status: Acute Assessment and plan: Better after oral supplementation. Continue to monitor episodically on present oral supplementation. (10) Hypomagnesemia: Status: Acute Assessment and plan: Magnesium level lower. IV magnesium and recheck tomorrow. I prefer not to increase his oral dose given his problems with chronic diarrhea. Subjective Subjective Interval history since last seen: Patient feels fine. He has had no ataxia, transferring independently. No nausea. No chest pain. No dyspnea. He continues to have loose stools but no blood. No abdominal pain or cramping. No dysuria. No paresthesias. He has not required any treatment for alcohol withdrawal, manifesting almost no symptoms that could be interpreted as alcohol withdrawal. Magnesium level has dropped further, down to 0.9 this morning. His potassium level has normalized. Exam Narrative Exam Narrative: Awake alert no distress. Afebrile. Blood pressure has gone up gradually, 156/78 most recently. Pulse in the 80s occasionally low 100s. SaO2 97% on room air. Speech is clear. No facial asymmetry. No nystagmus. Lungs are clear. No heart murmur S3 or S4. Abdomen soft nontender with normal bowel sounds. No peripheral edema with good distal pulses. IV site in the left antecubital area mildly erythematous and tender. No tremor. Sits up unassisted. Objective Objective Clinical Data: Abnormal lab results 04/21/19 Range/Units 05:50 BUN 6 L (7-18) mg/dL Creatinine 0.58 L (0.70-1.30) mg/dL Glucose 138 H (74-106) mg/dL Magnesium 0.9 L (1.8-2.4) mg/dL Vital Signs Temperature 36.3 C L 04/21/19 14:51 Temperature Source Tympanic 04/21/19 14:51 Pulse 85 04/21/19 14:51 Pulse Rhythm Regular 04/21/19 07:40 Pulse 123 H 04/21/19 06:02 Respiratory Rate 16 04/21/19 14:51 Respiratory Effort 04/21/19 07:40 Respiratory Depth Normal 04/21/19 07:40 Respiratory Pattern Normal 04/21/19 07:40 Blood Pressure 155/84 H 04/21/19 14:51 Blood Pressure Mean 91 04/21/19 12:25 Blood Pressure Position Supine 04/21/19 04:00 Pulse Oximetry 97 04/21/19 14:51 Oxygen Delivery Method Room Air 04/21/19 14:51 Oxygen Flow Rate 0 04/21/19 14:51 Pain Level 0 04/21/19 14:51 Intake & Output 04/20/19 04/21/19 04/21/19 23:59 11:59 23:59 Intake Total 1545 / 2235 385 / 485 100 / 485 Output Total 500 / 1320 950 / 950 Balance 1045 / 915 -565 / -465 100 / -465 Weight 79.9 kg Intake: IV 1105 / 1315 115 / 115 Oral 440 / 920 270 / 370 100 / 370 Output: Urine 500 / 970 950 / 950 Other: Urine Color Light Lilliam Light Lilliam Urine Appearance Clear Clear Urine Odor None None Comment pt ambulated to BR again and voided qs Stool Occult Blood Negative Stool Size Copious Stool Characteristics Soft Liquid Voiding Methods Urinal Urinal Laboratory Results WBC 4.79 k/cumm (4.4-10.8) 04/20/19 06:15 RBC 4.20 m/cumm (4.50-6.00) L 04/20/19 06:15 Hgb 13.3 g/dL (13.5-17.5) L 04/20/19 06:15 Hct 39.1 % (40.0-50.0) L 04/20/19 06:15 MCV 93.1 fL (80-95) 04/20/19 06:15 MCH 31.7 pg (27.0-33.0) 04/20/19 06:15 MCHC 34.0 g/dL (32.0-36.0) 04/20/19 06:15 RDW 14.8 % (11.8-14.1) H 04/20/19 06:15 Plt Count 76 x1000/uL (130-400) L 04/20/19 06:15 MPV 10.9 fL (8.0-11.0) 04/20/19 06:15 Immature Gran % 0.0 04/19/19 06:30 Neutrophils % 66.6 04/19/19 06:30 Lymphocytes % 19.5 04/19/19 06:30 Monocytes % 11.2 04/19/19 06:30 Eosinophils % 2.5 04/19/19 06:30 Basophils % 0.2 04/19/19 06:30 Absolute Neutrophils 3.44 k/cumm (1.2-6.7) 04/19/19 06:30 Absolute Lymphocytes 1.01 k/cumm (1.2-3.4) L 04/19/19 06:30 Absolute Monocytes 0.58 k/cumm (0.11-0.7) 04/19/19 06:30 Absolute Eosinophils 0.13 k/cumm (0.0-0.7) 04/19/19 06:30 Absolute Basophils 0.01 k/cumm (0.0-0.2) 04/19/19 06:30 Differential Comment Plt morph reviewed 04/19/19 06:30 RBC Morphology Normal 04/19/19 06:30 Sodium 141 mmol/L (136-145) 04/21/19 05:50 Potassium 3.9 mmol/L (3.5-5.1) 04/21/19 05:50 Chloride 103 mmol/L (98-107) 04/21/19 05:50 Carbon Dioxide 27.6 mmol/L (21.0-32.0) 04/21/19 05:50 Anion Gap 10.4 mmol/L (3-11) 04/21/19 05:50 BUN 6 mg/dL (7-18) L 04/21/19 05:50 Creatinine 0.58 mg/dL (0.70-1.30) L 04/21/19 05:50 Estimated GFR/1.73 m2 >= 60.00 (mL/min/1.73m2) 04/21/19 05:50 Glucose 138 mg/dL (74-106) H 04/21/19 05:50 Calcium 8.9 mg/dL (8.5-10.1) 04/21/19 05:50 Magnesium 0.9 mg/dL (1.8-2.4) L 04/21/19 05:50 Total Bilirubin 1.0 mg/dL (0.2-1.0) 04/19/19 06:30 AST 106 U/L (15-37) H 04/19/19 06:30 ALT 67 U/L (16-63) H 04/19/19 06:30 Alkaline Phosphatase 145 U/L (46-116) H 04/19/19 06:30 Troponin I < 0.05 ng/Ml (<0.06) 04/18/19 11:10 Total Protein 6.4 g/dL (6.4-8.2) 04/19/19 06:30 Albumin 2.8 g/dL (3.4-5.0) L 04/19/19 06:30 Ethyl Alcohol 424.8 mg/dL (<3) 04/18/19 11:10
[2019-04-21] MEDS: Sertraline 50 MG TAB PO (21:49)
[2019-04-21] MEDS: Gabapentin 300 MG CAP PO (21:49)
[2019-04-22 03:43] VITALS: BP 121/70; PULSE 98; RESP 18; TEMP 37.1; O2SAT 96
[2019-04-22 07:15] VITALS: BP 119/77; PULSE 96; RESP 18; TEMP 36.8; O2SAT 93
[2019-04-22 07:30] LABS: Magnesium 1.2 mg/dL (1.8-2.4)
[2019-04-22] MEDS: Magnesium Oxide 400 MG TAB PO (08:00)
[2019-04-22] MEDS: Omeprazole 20 MG CAPCR 40 MG PO (08:00)
[2019-04-22] MEDS: Multivitamin TAB 1 TAB PO (08:00)
[2019-04-22] MEDS: Nicotine 14 MG/24 HR PATCH TD (08:00)
[2019-04-22] MEDS: Metoprolol CR 100 MG TABCR 150 MG PO (08:00)
[2019-04-22] MEDS: Folic Acid 1 MG TAB PO (08:02)
[2019-04-22] MEDS: Thiamine 100 MG TAB PO (08:02)
[2019-04-22] MEDS: Atorvastatin 40 MG TAB 80 MG PO (08:02)
[2019-04-22] MEDS: Aspirin 81 MG CHEW PO (08:02)
[2019-04-22] MEDS: Losartan 50 MG TAB PO (08:02)
[2019-04-22] MEDS: Potassium Chloride 20 MEQ TABCR PO (08:02)
[2019-04-22 09:29] VITALS: O2SAT 94
--- NOTE | 2019-04-22 09:41 | DSE_ITS ---
Date of service: 04/22/19 Time of Service: 09:41 DS: Diagnosis Discharge Diagnosis (1) Wernicke-Korsakoff syndrome (alcoholic): Status: Acute Asessment and Plan: Patient presented with nystagmus and ataxia, on a background of chronic slowly worsening balance, and an alcohol level of 424.8. He was started on parenteral thiamine and IV fluids. He never had withdrawal symptoms and his nystagmus and ataxia resolved within 36 hours. It is unclear if he truly has Wernicke Korsakoff syndrome or his presentation was mainly due to acute inebriation. In any event, by the day of discharge she is independent with transfers and ambulation requiring no assistive equipment. He does not feel there is a need for outpatient PT or OT. He will go home on oral thiamine supplement. (2) Alcohol abuse: Status: None Asessment and Plan: He had no objective withdrawal symptoms and required no benzodiazepines. His plan going forward is to become more involved with his latter day, get involved again in the recovery center, volunteer work at the [facility] and states he is living in a housing complex with several people doing well in recovery who he can call upon if he needs to. (3) Coronary artery disease: Status: None Asessment and Plan: No symptoms referrable to this during his hospitalization. His metoprolol dose was initially reduced slightly because of low blood pressure and return to outpatient dose the day prior to discharge as blood pressure went up. (4) Cardiomyopathy: Status: Chronic Asessment and Plan: Stable on his outpatient meds with no exacerbation during this admission. (5) COPD, mild: Status: Chronic Asessment and Plan: Stable during this hospitalization on his outpatient use of Trelegy inhaler. He has pulmonary follow-up scheduled previously for later this week. He was offered nicotine replacement in the form of a patch which seemed to help. (6) Hypertension: Status: Chronic Asessment and Plan: Blood pressure initially low and beta-dakota dose reduced, ARB held then blood pressure steadily climbed with reintroduction of h is outpatient meds. No complications related to this problem. (7) Anxiety and depression: Status: None Asessment and Plan: No exacerbations during this hospitalization. He was continued on sertraline at 50 mg. Its unclear if he is on 50, 75 or 100 mg as an outpatient. (8) Restless leg syndrome: Status: Acute Asessment and Plan: He continued on gabapentin, no problems or complaints related to this issue. (9) Hypokalemia: Status: Acute Asessment and Plan: Transient hypokalemia, with potassium gurvinder 3.4, repleted to 3.9 with oral supplementation. He will not go home on any oral potassium but we did review high potassium containing foods. (10) Hypomagnesemia: Status: Acute Asessment and Plan: Magnesium level 1.2 on presentation, gurvinder of 0.9. He received IV magnesium plus oral. He had problems with chronic diarrhea thus conservative with the oral magnesium. Day of discharge magnesium still low at 1.2 and he will go home on twice daily magnesium orally. Discharge Plan Disposition Patient Disposition: HOME Condition: Improving Discharge Details Chief Complaint: CVA/TIA Clinical Impression: Wernicke encephalopathy Reason For Visit: WARNICKE'S ENCEPHALOPATHY, ALCOHOL WITHDRAWAL Admit Date/Time: 04/18/19 12:07 Admit Provider: Norm Rivera Attending Provider: Norm Rivera Primary Care Provider: Emilee George ED Provider: Carmelo Kaur Hospital Course Hospital Course: 53-year-old man with longstanding heavy alcohol abuse history presented to the emergency room over the past several weeks several times with worsening ataxia and nystagmus. Because of increasing difficulty with balance and walking he presented again to the emergency room and concern raised about Wernicke Korsakoff syndrome because of symptoms and history. CT scan without contrast of the brain was negative. He had mild decrease in magnesium, mild transaminitis with AST of 180 and ALT 99, alk phos 164 but normal bilirubin at 0.7. He stated he wished assistance with abstinence from alcohol and was admitted for treatment. Hospital course by problem as noted above. No changes were made to his chronic outpatient medication. He is going home with thiamine 100 mg daily for a month and magnesium supplement twice daily for 2 weeks, nicotine patches for 30 days. Home Meds and New Rx's Prescriptions: New nicotine 14 mg/24 hr Patch 24 Hour 14 mg transdermal DAILY PRN PRNQty: 30 RF: 0 magnesium oxide 400 mg (241.3 mg magnesium) Tablet 400 mg PO BID Qty: 28 RF: 1 thiamine mononitrate (vit B1) [Vitamin B-1 (mononitrate)] 100 mg Tablet 100 mg PO DAILY Qty: 30 RF: 0 Continued gabapentin 300 mg capsule 300 mg PO QHS Qty: 60 RF: 3 albuterol sulfate [ProAir HFA] 90 mcg/actuation HFA aerosol inhaler 2 puff IH QID PRNRF: 0 atorvastatin 80 mg tablet 80 mg PO DAILY RF: 0 lidocaine 3 % Cream 1 applic TOPICAL TID RF: 0 naproxen 500 mg Tablet 500 mg PO BID PRNRF: 0 metoprolol succinate 100 mg tablet extended release 24 hr 150 mg PO DAILY RF: 0 melatonin 3 mg capsule 3 mg PO HS PRNRF: 0 aspirin [Aspirin Low-Strength] 81 MG tablet,chewable 1 tab PO DAILY RF: 0 sertraline 50 MG tablet 50 mg PO HS RF: 0 omeprazole 40 mg Capsule,Delayed Release(Dr/Ec) 40 mg PO DAILY RF: 0 One-A-Day Men 50 Plus (ginkgo) 400-300-120 mcg-mcg-mg Tablet 1 tab PO DAILY RF: 0 Trelegy Ellipta 100-62.5-25 mcg Blister With Device 2 inh INHALATION DAILY RF: 0 losartan 50 mg Tablet 50 mg PO DAILY RF: 0 Discharge Instructions Instructions: Hypokalemia (DC), Abuse of Alcohol (DC), Hypomagnesemia (DC) Stand Alone Forms: Nursing Discharge Form Referrals: Emilee George [Primary Care Provider] - 04/29/19 11:15 am Activity:: Activity as Tolerated Equipment/Supplies:: No Equipment Needed Diet:: As Tolerated Discharge Orders Discharge Orders: Discharge Order (Routine); Ordered 04/22/19 Ordered By: Hussein Clements DS: Summary Status at Discharge Functional status at discharge: independent ambulation Overall status at discharge: patient is back to baseline Mental Status: mental status grossly normal Speech and Movement: speech and movement normal Mood: congruent mood Affect: normal affect Exam Narrative Exam Narrative: On the morning of admission he is awake alert able to stand walk transfer independently without use of equipment and no ataxia. Afebrile with blood pressure 119/77 SaO2 on room air 94%. No facial tremor, no nystagmus. Speech clear. Lungs with some coarse expiratory breath sounds no wheezing crackles or rub. Regular heart rhythm without murmur S3 or S4. Still has a little bit of residual erythema at IV site in the left antecubital fossa but no tenderness. No ankle edema. Psych Mental Status: mental status grossly normal Speech and Movement: speech and movement normal Mood: congruent mood Affect: normal affect DS: Data Vitals/I&O Vitals and I&O: Vital Signs Temperature 36.8 C 04/22/19 07:15 Temperature Source Tympanic 04/22/19 07:15 Pulse 96 H 04/22/19 07:15 Pulse Rhythm Regular 04/22/19 00:10 Pulse 123 H 04/21/19 06:02 Respiratory Rate 18 04/22/19 07:15 Respiratory Effort 04/22/19 00:10 Respiratory Depth Normal 04/22/19 00:10 Respiratory Pattern Normal 04/22/19 00:10 Blood Pressure 119/77 04/22/19 07:15 Blood Pressure Mean 91 04/21/19 12:25 Blood Pressure Position Supine 04/21/19 04:00 Pulse Oximetry 94 L 04/22/19 09:29 Oxygen Delivery Method Room Air 04/22/19 09:29 Oxygen Flow Rate 0 04/22/19 09:29 Pain Level 0 04/22/19 07:15 Intake & Output 04/21/19 04/21/19 04/22/19 11:59 23:59 11:59 Intake Total 385 / 495 110 / 495 510 / 510 Output Total 950 / 950 Balance -565 / -455 110 / -455 510 / 510 Weight 79.9 kg 80.7 kg Intake: IV 115 / 125 10 / 125 Oral 270 / 370 100 / 370 510 / 510 Output: Urine 950 / 950 Other: Urine Color Light Lilliam Urine Appearance Clear Urine Odor None Comment VOID X 1 INDEP UP TO BR. 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) Anxiety and depression Anxiety and depression (Chronic) Bloody sputum (Resolved) Cardiomyopathy (Chronic) ETOH induced Complete left bundle branch block (LBBB) (Chronic) COPD (chronic obstructive pulmonary disease) (Chronic) Coronary artery disease s/p PCI DDD (degenerative disc disease), lumbar (Acute) Diarrhea (Resolved) 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 Dyslipidemia Dyspnea (Acute) Erectile dysfunction (Acute) Fatigue (Acute) Financial problems (Acute) GERD (gastroesophageal reflux disease) (Chronic) H/O: GI bleed (Acute) Hemoptysis (Resolved) Homelessness (Acute) Hyperlipemia (Chronic) Hypertension (Chronic) Imprisonment and other incarceration (Acute) Insomnia (Acute) Low back pain (Chronic) Periodic limb movement disorder (Acute) Peripheral neuropathy (Inactive) Prediabetes (Acute) PTSD (post-traumatic stress disorder) (Chronic) Restless leg syndrome (Acute) Skin lesion of back (Resolved) Sleep apnea (Acute) Smoker (Chronic) 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 H/O colonoscopy with polypectomy (Resolved 03/31/15) Dr Jacome, rectal serrated adenoma, repeat in five years History of esophagogastroduodenoscopy (EGD) (Acute 04/29/18) Dr Hayden Lr, [facility] (colo attempted at same time, however poor prep, scheduled to be repeated, consult scheduled for 05/14/18) S/P coronary artery stent placement (Inactive) S/P drug eluting coronary stent placement (Resolved) S/P hernia repair (Acute) Family History Father Diabetes Heart disease Brother Heart disease Social History (Updated 04/18/19 @ 15:33 by Norm Rivera MD) Smoking/Tobacco Use Status: Current every day Tobacco Type: cigarettes Alcohol Intake: current Alcohol Intake frequency: 3 or more drinks per day Alcohol type: beer and hard liquor Drug use: Never Substance use type: does not use Details: TODAY---3 drinks of Vodka and a few beers Household members: none Housing: apartment Number of Children: 1 current occupation: Disabled What is your relationship status?: Panel score (0-1 are the most socially isolated patients): 0 What type of physical activity do you participate in: walking Seatbelt use: always Do you feel safe at home: Yes
[2019-04-22 10:25] VITALS: RESP 18
--- NOTE | 2019-04-22 11:36 | PDOC.CMDIS ---
- If Service Date Differs Date of service: 04/22/19 Time of Service: 11:36 LACE Index Scoring Tool - Questions: Length of Stay (in days): 4 - 6 Acuity (Admit via E.D.?): Yes Comorbidities: Congestive Heart Failure E.D. Visits: 4 - Answers: Total Score: 13 Risk of Readmission: High Risk Care Management Discharge Reason for Hospitalization: Wernicke-Korsakoff syndrome Discharge Plan: Lawrence will return home with new orders for HH PT/OT. NICKIE communicated with upon his discharge. He will be driven home via private vehicle by family. He will follow up with his PCP, as recommended. Patient/Family Education Needs: Review discharge instructions regarding activity levels and medications, discussion of self care needs including Ask Me Three Services Needed at Discharge: Home Health Care Services (PT/OT)
--- NOTE | 2019-04-23 11:52 | PT.INDS ---
Date of service: 04/23/19 Time of Service: 11:52 PT Notes Visit Reasons: WARNICKE'S ENCEPHALOPATHY, ALCOHOL WITHDRAWAL Inpatient Physical Therapy Discharge Summary Dates: 04/23/2018 Dates of Service: 04/20/2019 through 04/22/2019 This is a clinical summary of care provided on the duration of dates listed above. No charge was made in the completion of this documentation. Referring Doctor: Hussein Clements MD PT Orders: PT CONSULT: Limited ability. Ataxia, likely due to alcohol, fall risk Precautions: Fall. Standard. Activity as tolerated. Patient Profile/Admitting Diagnosis: Patient is a 53-year-old male with past medical history significant for coronary artery disease who presented to the ED on 04/18/2019 with chief presentation of difficulty walking and slurred speech. Patient patient was admitted to the ED with the same condition last week but left AMA. Patient is diagnosed with Wernicke's/Korsakoff syndrome, EtOH abuse, and ambulatory dysfunction. Referral to physical therapy was made in order to address impairments in strength, balance, and activity tolerance. 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 Dyslipidemia Dyspnea (Acute) Erectile dysfunction (Acute) Fatigue (Acute) Financial problems (Acute) GERD (gastroesophageal reflux disease) (Chronic) H/O: GI bleed (Acute) Homelessness (Acute) Hyperlipemia (Chronic) Hypertension (Chronic) Imprisonment and other incarceration (Acute) Insomnia (Acute) Low back pain (Chronic) Periodic limb movement disorder (Acute) Prediabetes (Acute) PTSD (post-traumatic stress disorder) (Chronic) Sleep apnea (Acute) Smoker (Chronic) Surgical History H/O colonoscopy (Acute 04/29/18) Dr Hayden Lr, [facility], attempted, poor prep, r/s for 05/14/18 (consult), but patient no showed. H/O colonoscopy with polypectomy (Resolved 03/31/15) Dr Jacome, rectal serrated adenoma, repeat in five years History of esophagogastroduodenoscopy (EGD) (Acute 04/29/18) Dr Hayden Lr, [facility] (colo attempted at same time, however poor prep, scheduled to be repeated, consult scheduled for 05/14/18) S/P coronary artery stent placement (Inactive) S/P hernia repair (Acute) Social History/Home Situation: Patient lives alone in an apartment with 18 steps to enter with rails on both sides. Patient has been on disability benefits for the past 8 months. He is independent with all aspects of ADLs without the need for an assistive device nor adaptive equipment although he states that he has not had the energy to cook and therefore has not been eating well. Equipment Owned/DME: None Subjective: NT Objective: General Observation: NT Mental Status: NT Pain: NT ROM: Right Upper Extremity: Shoulder Flexion WFL. Shoulder abduction WFL. Elbow flexion WFL. Wrist flexion WFL. Opening and closing of hand WFL. Left Upper Extremity: Shoulder Flexion WFL. Shoulder abduction WFL. Elbow flexion WFL. Wrist flexion WFL. Opening and closing of hand WFL. Right Lower Extremity: Hip flexion WFL. Hip abduction WFL. Knee flexion WFL. Ankle dorsiflexion WFL. Ankle plantarflexion WFL. Left Lower Extremity: Hip flexion WFL. Hip abduction WFL. Knee flexion WFL. Ankle dorsiflexion WFL. Ankle plantarflexion WFL. Strength: Right Upper Extremity: Shoulder flexors 5/5. Shoulder abductors 5/5. Elbow flexors 5/5. Elbow extensors 5/5. Net Sql Developer strong. Left Upper Extremity: Shoulder flexors 5/5. Shoulder abductors 5/5. Elbow flexors 5/5. Elbow extensors 5/5. Net Sql Developer strong. Right Lower Extremity: Hip flexors 4/5. Hip abductors 5/5. Knee flexors 5/5. Knee extensors 4/5. Ankle dorsiflexors 5/5. Ankle plantarflexors 5/5. Left Lower Extremity:Hip flexors 4/5. Hip abductors 5/5. Knee flexors 5/5. Knee extensors 4/5. Ankle dorsiflexors 5/5. Ankle plantarflexors 5/5. Sensation: Intact as to pain and pressure on bilateral lower extremities. Bed Mobility/Transfers: Rolling independent Supine to sit independent Sit to supine independent Sit to stand independent Stand to sit independent Bed to chair independent Chair to bed independent Gait: Patient tolerated level surface ambulation of 400 feet using front wheeled walker with supervision. No LB. Patient also tolerated six 4 inch steps and four 6 inch steps while holding onto bilateral rails with step over step gait pattern requiring CGA. Balance: Static Sitting: Normal Dynamic Sitting: Normal Static Standing: Fair Dynamic Standing: Fair Assessment: Patient is a 53-year-old male with past medical history significant for coronary artery disease who presented to the ED on 04/18/2019 with chief presentation of difficulty walking and slurred speech. Patient patient was admitted to the ED with the same condition last week but left AMA. Patient is diagnosed with Wernicke's/Korsakoff syndrome, EtOH abuse, and ambulatory dysfunction. Patient demonstrated significant improvement in functional mobility performance during this episode of care. Impairments continue to contributing to the following functional limitations: 1. Increased fall risk 2. Inability to negotiate steps alone safely Goals: Goals X1 week 1. Supine-Sit independent MET 2. Sit-Supine independent MET 3. Sit-Stand independent MET 4. Stand-Sit independent MET 5. Bed-Chair independent MET 6. Chair-Bed independent MET 7. Independent gait on level surface with use of least restrictive device for at least 300 feet without report of pain nor dyspnea NOT MET 8. Independent stair negotiation while holding onto bilateral rails for at least 15 steps without report of pain nor dyspnea NOT MET 9. Independent with home exercise program NOT MET 10. Good static and dynamic standing balance/tolerance NOT MET Plan of Care/Treatment Plan: DISCHARGE RECOMMENDATIONS: Patient will benefit from home health PT services in order to progress mobility level using least restrictive assistive ambulatory device, assess home safety, identify additional equipment needs, and establish a functional maintenance program that will increase ability of patient to remain at home. TREATMENT CODE/TIME: NC. Thank you very much for this referral. Chantel Ribeiro PT, DPT, CLT [facility] [place], [place]
== END 2019-04-22 10:36 | disposition home or self-care (01) | DRG 897 ==
LOC: ER 11:58 → ICU 13:46 → MS 04-21 18:28 → ICU 04-28 14:19
PROVIDERS: Admitting Provider Family Medicine; Emergency Provider Student in an Organized Health Care Education/Training Program; PCP Nurse Practitioner; Visit Provider Internal Medicine
DX: F10.220 Alcohol dependence with intoxication, uncomplicated (principal); I42.6 Alcoholic cardiomyopathy; F10.26 Alcohol dependence with alcohol-induced persisting amnestic disorder; Y90.8 Blood alcohol level of 240 mg/100 ml or more; K70.10 Alcoholic hepatitis without ascites; H55.00 Unspecified nystagmus; R26.0 Ataxic gait; I25.10 Atherosclerotic heart disease of native coronary artery without angina pectoris; E87.6 Hypokalemia; E83.42 Hypomagnesemia; J44.9 Chronic obstructive pulmonary disease, unspecified; F17.210 Nicotine dependence, cigarettes, uncomplicated; Z95.5 Presence of coronary angioplasty implant and graft; G47.36 Sleep related hypoventilation in conditions classified elsewhere; I10 Essential (primary) hypertension; F41.8 Other specified anxiety disorders; G25.81 Restless legs syndrome; Z23 Encounter for immunization
CPT/HCPCS: 36415; 80048; 80053; 85027; 93005; 96361; 96374; 97162; 97530; 99223; 99232; 99233; 99239; 99285; 70450; 80320; 83735; 84484; 85025; 93010; J2060; J3475

== ENCOUNTER 2019-04-29 12:08 | Outpatient (CLI) | payer MEDICAID, SELFPAY ==
[2019-04-29 13:51] LABS: Iron 32 ug/dL (65-175); Total Iron Binding Capacity 360 ug/dL (250-450); Transferrin Sat 9 % (20-55)
[2019-04-29 14:03] LABS: ALT 219 U/L (16-63); AST 229 U/L (15-37); Albumin 4.2 g/dL (3.4-5.0); Alkaline Phosphatase 181 U/L (46-116); Anion Gap 10.5 mmol/L (3-11); BUN 20 mg/dL (7-18); Bilirubin, Direct 0.19 mg/dL (0.00-0.20); Bilirubin, Total 0.3 mg/dL (0.2-1.0); CO2 29.5 mmol/L (21.0-32.0); CREATININE 0.66 mg/dL (0.70-1.30); Calcium 9.8 mg/dL (8.5-10.1); Chloride 102 mmol/L (98-107); Glucose 100 mg/dL (74-106); Sodium 142 mmol/L (136-145); TSH 1.87 uIU/mL (0.36-3.74); Total Protein 7.5 g/dL (6.4-8.2)
[2019-04-29 14:36] LABS: Ferritin 250 ng/mL (26-388)
== END 2019-04-29 12:28 ==
PROVIDERS: PCP Nurse Practitioner; Visit Provider Internal Medicine
DX: G47.61 Periodic limb movement disorder (principal)
CPT/HCPCS: 36415; 80048; 80076; 82728; 83540; 83550; 84443

== ENCOUNTER 2019-06-10 12:05 | Outpatient (REF) | payer MEDICAID, SELFPAY ==
[2019-06-10 19:06] LABS: ALT 113 U/L (16-63); AST 157 U/L (15-37); Albumin 3.9 g/dL (3.4-5.0); Alkaline Phosphatase 143 U/L (46-116); Anion Gap 10.2 mmol/L (3-11); BUN 21 mg/dL (7-18); Bilirubin, Total 0.5 mg/dL (0.2-1.0); CO2 26.8 mmol/L (21.0-32.0); CREATININE 0.67 mg/dL (0.70-1.30); Chloride 103 mmol/L (98-107); Glucose 113 mg/dL (74-106); Potassium 4.3 mmol/L (3.5-5.1); Sodium 140 mmol/L (136-145); Total Protein 7.2 g/dL (6.4-8.2)
== END 2019-06-10 12:25 ==
LOC: NCHCN 12:05
PROVIDERS: PCP Nurse Practitioner; Visit Provider Nurse Practitioner
DX: K76.0 Fatty (change of) liver, not elsewhere classified (principal); K70.10 Alcoholic hepatitis without ascites
CPT/HCPCS: 80053

== ENCOUNTER 2019-06-17 01:35 | Outpatient (CLI) | payer MEDICAID, SELFPAY ==
--- NOTE | 2019-06-17 | DI.CT_ITS ---
EXAM: CT NECK W CLINICAL HISTORY: ALCOHOL ABUSE F10.10, TOBACCO ABUSE Z72.0, PAIN IN THROAT R07.2 TECHNIQUE: Post IV contrast. COMPARISON: No exams were available for comparison FINDINGS: No abnormality is seen of the thyroid cartilage or hyoid. There is no evidence of bony destruction. No mass or adenopathy is seen. The thyroid, submandibular and parotid glands appear normal. There is moderate mucosal thickening of the sinuses. Mastoid air cells appear clear. Orbits are unremarka ble. Visualized portions of the brain are unremarkable. There is some calcification at the left com mon carotid bulb but no significant stenosis. There are emphysematous changes at the upper lobes. T here is minimal calcification at the aortic arch. Diameter appears normal. Tonsils and adenoids do not appear enlarged. There are degenerative changes in the cervical spine. IMPRESSION: Sinus disease. No abnormality is seen of the thyroid cartilage or surrounding tissue.
[2019-06-17] MEDS: Omnipaque 350 MG/ML 100 ML BTL IV (14:55)
== END 2019-06-17 01:55 ==
PROVIDERS: PCP Nurse Practitioner; Visit Provider Otolaryngology Otolaryngology/Facial Plastic Surgery
DX: F10.10 Alcohol abuse, uncomplicated (principal); R07.0 Pain in throat; Z72.0 Tobacco use; J32.8 Other chronic sinusitis
CPT/HCPCS: 70491; 84520; 82565; 82728; 83540; 83550; 84443; J3490

== ENCOUNTER 2019-09-21 14:57 | Emergency (ER) | payer MEDICAID, SELFPAY ==
[2019-09-21] VITALS (11 sets, daily range): BP systolic 121–146; BP diastolic 52–70; PULSE 97–108; RESP 19–33; TEMP 36.8–37.4; O2SAT 89–95
--- NOTE | 2019-09-21 15:45 | DI.RAD_ITS ---
EXAM: XR PORTABLE CHEST AP CLINICAL HISTORY: SOB. TECHNIQUE: 2D digital imaging was performed. COMPARISON: CR XR CHEST 2V PA LATERAL from 04/08/2019 FINDINGS: LUNGS: Clear. No pleural abnormality seen. HEART: Normal. MEDIASTINUM: Normal. OTHER FINDINGS: None. IMPRESSION: No acute pulmonary findings. DATA REPOSITORY: RADIATION DOSE DELIVERED:
--- NOTE | 2019-09-21 16:31 | W.ED.GENAD ---
Discharge Plan Disposition Patient Disposition: HOME Discharge Details Chief Complaint: SOB Clinical Impression: Dyspnea, Leukocytosis Primary Care Provider: Emilee George ED Provider: Roger Galeas Home Meds and New Rx's Prescriptions: New doxycycline hyclate 100 mg capsule 100 mg PO BID Qty: 20 RF: 0 Continued albuterol sulfate [ProAir HFA] 90 mcg/actuation HFA aerosol inhaler 2 puff IH QID PRNRF: 0 atorvastatin 80 mg tablet 80 mg PO DAILY RF: 0 naproxen 500 mg Tablet 500 mg PO BID PRNRF: 0 magnesium oxide 400 mg (241.3 mg magnesium) tablet 400 mg PO DAILY RF: 0 mirtazapine 7.5 mg tablet 7.5 mg PO QHS RF: 0 Trelegy Ellipta 100-62.5-25 mcg blister with device 1 inh IH DAILY RF: 0 gabapentin 600 mg tablet 1,200 mg PO QHS Qty: 60 RF: 5 metoprolol succinate 100 mg tablet extended release 24 hr 150 mg PO DAILY RF: 0 melatonin 3 mg capsule 3 mg PO HS PRNRF: 0 aspirin [Aspirin Low-Strength] 81 MG tablet,chewable 1 tab PO DAILY RF: 0 sertraline 50 MG tablet 50 mg PO HS RF: 0 omeprazole 40 mg Capsule,Delayed Release(Dr/Ec) 40 mg PO DAILY RF: 0 One-A-Day Men 50 Plus (ginkgo) 400-300-120 mcg-mcg-mg Tablet 1 tab PO DAILY RF: 0 losartan 50 mg tablet 50 mg PO DAILY RF: 0 thiamine mononitrate (vit B1) [Vitamin B-1 (mononitrate)] 100 mg Tablet 100 mg PO DAILY Qty: 30 RF: 0 (DME) Bipap RF: 0 Discharge Instructions Instructions: Leukocytosis (ED), Dyspnea (ED) Additional Instructions: At this time at rest you are asymptomatic, your laboratory values do not reveal any obvious emergent process. Given your symptoms, documented fever at your primary care office earlier today, and elevated white count, I do believe initiating antibiotic therapy is perfectly reasonable. You were tested for Covid earlier today, your symptoms certainly can be secondary to COVID. Please watch for new or worsening symptoms and return to the ER for any concerns. I strongly recommend reaching out your primary care provider tomorrow for prompt outpatient reevaluation. Discharge Data Discharge Date/Time-TO BE ENTERED AT DEPARTURE: 09/21/19 19:45 Medical Decision Making <AUNG Barksdale - Last Filed: 09/25/19 22:15> Is a 54-year-old chronic alcoholic who also has a history of COPD and GA with stent placement 16 years ago currently taking aspirin presented to the emergency room by private car for complaints of shortness of breath for the last 24 hours. Shortness of breath is described as exertional. Patient denies associated chest pain. Patient does report some dry heaving which he describes after clearing his throat. Has been eating and drinking without difficulty. No associated vomiting. Denies shortness of breath currently. Describes symptoms as exertional only. Patient did have a Covid swab prior to arrival. Please see HPI for the remainder of patient's history. Patient does have a significant cardiac family history as well as GA historically. Will check for ACS as etiology of patient's symptoms. Will check d-dimer. Patient has rhonchi noted on the right breath sounds concern for possible pneumonia will check chest x-ray. Patient otherwise denies any systemic ill feeling. He is a chronic alcoholic but does experience some throat clearing and dry heaving which has been present for the last 5 days. Patient otherwise reports eating and drinking without difficulty. Patient has a benign abdominal exam. Patient has mild tachycardia noted with a heart rate of 108. Blood pressure 146/67 respirations 26 and unlabored. EKG reveals sinus tachycardia with a heart rate of 106. Incomplete left bundle branch block. No significant change compared to 04/18/2019. Reviewed with Dr. Brent Hebert. Patient signed out after initial evaluation pending all labs and imaging. <Brent Hebert MD - Last Filed: 09/21/19 18:51> Patient seen, examined, discussed with Mr. Galeas and Ms. Nicolas. I agree with assessment and plan including diagnostic laboratory and imaging. Please see notes for details of the case. <AUNG Galicia - Last Filed: 09/21/19 20:01> I assumed care of this 54-year-old gentleman from AUNG Nicolas at change of shift. Patient has had 24-hour history of dyspnea worse with exertion, seen by his primary care provider today, noted to have a fever, outpatient tested for Covid. Work-up has already been initiated however no labs are back upon shift change. Patient does have a significant past medical history includes alcohol abuse, hepatitis, anxiety, depression, cardiomyopathy, left bundle branch block, COPD, CAD, DDD, stent placement. Patient is resting comfortably in room 7. He reports at rest he is actually asymptomatic when lying there. He appears well, nontoxic. Head normocephalic, moist mucous membranes. Heart regular rate and rhythm, rate in the 80s, lungs are clear to auscultation, no respiratory distress. Abdomen is soft, nontender. Lower extremities without pedal edema. Calves nontender. Rather unremarkable initial evaluation, O2 sats are in the high 90s on room air. Initial laboratory values are resulted with a WBC of 16.88, hemoglobin 12.7, platelet count 372. Absolute neutrophils 12.78. D-dimer 1990. Sodium 132, potassium 34, creatinine 0.60 given estimated GFR of greater than 60. Mag of 1.6. Chest x-ray unremarkable. Given the elevated d-dimer will obtain chest CTA Chest CTA read by virtual radiology as no pulmonary embolism. Scarring in the pulmonary apices. Mild to moderate paraseptal pulmonary emphysema in the upper lobes. Scarring in the right middle lobe medial segment. No iva consolidation. Minimal peripheral patchy infiltrates in the lingula and left lower lobe. In the setting of fever, dyspnea, leukocytosis, nonspecific minimal patchy infiltrates, I do believe treating with antibiotics is perfectly reasonable. Will give first dose of doxycycline here. Patient agreeable to waiting in the ER for repeat EKG and troponin. Repeat troponin is less than 0.05. Repeat EKG performed at 1926 reveals a sinus rhythm, ventricular rate of 94. Left bundle branch block. No STEMI. No dynamic changes when compared to EKG performed upon presentation to the ER. This was reviewed and interpreted with Dr. Hebert. Dr. Hebert did evaluate the patient himself, please see his note. Discussed work-up with patient patient is agreeable to taking antibiotic therapy. He is currently asymptomatic and comfortable being discharged home. He appears well, nonseptic, nontoxic. He was encouraged to return to the ER for new or worsening symptoms, otherwise contact his primary care provider tomorrow for prompt outpatient reevaluation. HPI <AUNG Barksdale - Last Filed: 09/25/19 22:15> General Date/Time Provider Initiated Documentation: 09/21/19 15:14. HPI Narrative: Is a 54-year-old patient presenting the emergency room with complaints of shortness of breath. Patient reports onset of shortness of breath for last 24 hours. Patient tried to see his PCP in [place] for well check today however he had a temperature of 100.6 and was referred to [facility] respiratory area. Patient was evaluated there had vital signs check and Covid swab. Given his complaints he was referred to the emergency room for further evaluation. Patient does have a history of an GA 16 years ago with stent placement. Takes a daily aspirin. Patient also has a history of COPD. Patient reports this is atypical of his COPD exacerbation is typically he feels wheezing. Patient is not experiencing any wheezing at this time. Patient denies obvious fever, chills. Patient does report some dry heaving which he describes after throat clearing. Denies any associated nausea throughout the day or vomiting. Patient does report loose stools which is his baseline and unchanged. Denies any abdominal pain. Denies chest pain. Patient describes his shortness of breath is exertional when going upstairs. Patient reports mild lightheadedness. Denies dizziness. Denies headache. Patient is a chronic alcoholic who continues to drink approximately 3-5 shots per day to avoid withdrawal. Patient denies any rash. Patient has been eating and drink without difficulty. Patient reports has been holding down food and fluids without difficulty. Does feel well hydrated at this time. Patient reports he is compliant with his daily medications as well as an inhalers. Patient does report a significant family history of cardiac disease specifically MIs. Related Data Home Medications Medication Instructions Recorded Confirmed aspirin [Aspirin Low-Strength] 1 tab PO DAILY 09/14/17 09/21/19 sertraline 50 mg PO HS 09/14/17 09/21/19 albuterol sulfate 90 mcg/actuation 2 puff IH QID PRN 01/16/18 09/21/19 aerosol inhaler atorvastatin 80 mg tablet 80 mg PO DAILY 01/16/18 09/21/19 One-A-Day Men 50 Plus (ginkgo) 1 tab PO DAILY 04/27/18 09/21/19 omeprazole 40 mg PO DAILY 04/27/18 09/21/19 naproxen 500 mg PO BID PRN 10/02/18 09/21/19 melatonin 3 mg capsule 3 mg PO HS PRN 01/22/19 09/21/19 metoprolol succinate 100 mg 150 mg PO DAILY tab 01/22/19 09/21/19 tablet,extended release 24 hr thiamine mononitrate (vit B1) 100 mg PO DAILY #30 tab 04/22/19 09/21/19 [Vitamin B-1 (mononitrate)] fluticasone fur. 100 mcg-umeclid 1 inh IH DAILY 06/28/19 09/21/19 62.5 mcg-vilant 25 mcg inhalat.powder gabapentin 600 mg tablet 1,200 mg PO QHS #60 tab 06/28/19 09/21/19 losartan 50 mg tablet 50 mg PO DAILY 09/10/19 09/21/19 magnesium oxide 400 mg (241.3 mg 400 mg PO DAILY tab 09/10/19 09/21/19 magnesium) tablet mirtazapine 7.5 mg tablet 7.5 mg PO QHS 09/10/19 09/21/19 Bipap 09/21/19 09/21/19 doxycycline hyclate 100 mg PO BID #20 cap 09/21/19 Previous Rx's Medication Instructions Recorded thiamine mononitrate (vit B1) 100 mg PO DAILY #30 tab 04/22/19 [Vitamin B-1 (mononitrate)] gabapentin 600 mg tablet 1,200 mg PO QHS #60 tab 06/28/19 doxycycline hyclate 100 mg PO BID #20 cap 09/21/19 Allergies Allergy/AdvReac Type Severity Reaction Status Date / Time clonidine AdvReac Verified 09/10/19 09:25 General Stated Complaint: SOB AMINA: 2 Review of Systems <AUNG Barksdale - Last Filed: 09/25/19 22:15> All systems reviewed & are unremarkable except as noted in HPI and below PFSH <AUNG Barksdale - Last Filed: 09/25/19 22:15> Medical History Alcohol abuse Alcoholic hepatitis (Chronic) Alcoholism (Chronic) Allergic rhinitis (Acute) 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) Anxiety and depression Anxiety and depression (Chronic) Bloody sputum (Resolved) Cardiomyopathy (Chronic) ETOH induced Complete left bundle branch block (LBBB) (Chronic) COPD (chronic obstructive pulmonary disease) (Chronic) Coronary artery disease s/p PCI DDD (degenerative disc disease), lumbar (Acute) Diarrhea (Resolved) 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 Dyslipidemia Dyspnea (Acute) Erectile dysfunction (Acute) Fatigue (Acute) Financial problems (Acute) GERD (gastroesophageal reflux disease) (Chronic) H/O: GI bleed (Acute) Hemoptysis (Resolved) Homelessness (Acute) Hyperlipemia (Chronic) Hypertension (Chronic) Imprisonment and other incarceration (Acute) Insomnia (Acute) Low back pain (Chronic) Periodic limb movement disorder (Acute) Peripheral neuropathy (Acute) Prediabetes (Acute) PTSD (post-traumatic stress disorder) (Chronic) Restless leg syndrome (Acute) Skin lesion of back (Resolved) Sleep apnea (Acute) Smoker (Chronic) 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) Tobacco dependence Social History Smoking/Tobacco Use Status: Current every day Tobacco Type: cigarettes Alcohol Intake: current Alcohol Intake frequency: 3 or more drinks per day Alcohol type: beer and hard liquor Drug use: Never Substance use type: does not use Details: TODAY---3 drinks of Vodka and a few beers Household members: none Housing: apartment Number of Children: 1 current occupation: Disabled What is your relationship status?: Panel score (0-1 are the most socially isolated patients): 0 What type of physical activity do you participate in: walking Seatbelt use: always Do you feel safe at home: Yes Exam <AUNG Barksdale - Last Filed: 09/25/19 22:15> Narrative Exam Narrative: CONST: Patient in no acute distress. Well hydrated. Alert and oriented. HENMT: Head nomocephalic, normal to inspection. Atraumatic. Hearing grossly normal. External ear canal no erythema or swelling. TM normal bilaterally. Nose normal to inspection. No rhinnorhea. Normal facial exam. Oral mucosa normal. Tounge normal. Dentition normal. Normal posterior oropharynx. Uvula midline. EYES: General normal appearance. Alignment normal. Eyelids normal. Conjunctiva normal. Sclera normal. PERRL. NECK: Normal visual inspection. FROM. No lymphadenopathy. Trachea midline. No Midline tenderness. CHEST: Normal insepection of the chest. RESP: Normal respiratory effort. Speaking full sentences. No cough. No wheezing. No retractions. Mild rhonchi noted on the right. Otherwise clear to auscultation on the left. No wheezing. CARDIO: No JVD. Normal PMI. Regular Rate. Regular Rhythm. Normal peripheral pulses. Holosystolic murmur GI: Normal inspection of abdomen. No distension. Soft. Nontender. Bowel sounds present in all 4 quadrants. No rebound. No gaurding. MUSCULOSKELETAL: Normal Gait. FROM of all extremities. Distal neurovascularly intact. Sensation intact distally. Back no CVA tenderness bilaterally. SKIN: Normal. Dry. No rashes. NEURO: Alert and awake. Speech clear. PSYCH: Normal affect. Cooperative. Course <AUNG Barksdale - Last Filed: 09/25/19 22:15> Vital Signs Vital signs: Vital Signs Temperature 37.4 C 09/21/19 15:09 Pulse 108 H 09/21/19 15:09 Respiratory Rate 26 H 09/21/19 15:09 Blood Pressure 146/67 H 09/21/19 15:09 Pulse Oximetry 95 09/21/19 15:09 Temperature 37.4 C 09/21/19 15:09 Temperature Source Oral 09/21/19 15:09 Pulse 108 H 09/21/19 15:09 Respiratory Rate 26 H 09/21/19 15:09 Blood Pressure 146/67 H 09/21/19 15:09 Blood Pressure Position Sitting 09/21/19 15:09 Pulse Oximetry 95 09/21/19 15:09 Oxygen Delivery Method Room Air 09/21/19 15:09 Oxygen Flow Rate 0 09/21/19 15:09 Pain Level 0 09/21/19 15:09 Sign Out <AUNG Barksdale - Last Filed: 09/25/19 22:15> Sign Out Data: Sign Out Comment: Patient complaining of shortness of breath x24 hours described as exertional. Patient signed out pending all labs and imaging. Last updated by Laura Moore PA at 09/21/19 16:42
[2019-09-21 16:39] LABS: Abs Immature Grans 0.05 k/cumm (0.0-0.09); Absolute Eosinophil Count 0.05 k/cumm (0.0-0.7); Absolute Lymphocyte Count 2.03 k/cumm (1.2-3.4); Basophils % 0.1; Eosinophils % 0.3; HCT 37.8 % (40.0-50.0); HGB 12.7 g/dL (13.5-17.5); Immature Grans % 0.3 %; Mean Corp. HGB Concentration 33.6 g/dL (32.0-36.0); Mean Corpuscular Hemoglobin 30.3 pg (27.0-33.0); Mean Corpuscular Volume 90.2 fL (80-95); Mean Platelet Volume 9.6 fL (8.0-11.0); Monocytes % 11.6; Neutrophils % 75.7; Platelet Count 372 x1000/uL (130-400); RBC 4.19 m/cumm (4.50-6.00); RBC Distribution Width 14.9 % (11.8-14.1); White Blood Cell Count 16.88 k/cumm (4.4-10.8)
[2019-09-21 16:46] LABS: Absolute Basophil Count 0.02 k/cumm (0.0-0.2); Absolute Monocyte Count 1.96 k/cumm (0.11-0.7); Absolute Neutrophil Count 12.78 k/cumm (1.2-6.7)
[2019-09-21 16:49] LABS: Magnesium 1.6 mg/dL (1.8-2.4)
[2019-09-21 16:53] LABS: ALT 49 U/L (16-63); AST 63 U/L (15-37); Albumin 2.4 g/dL (3.4-5.0); Alkaline Phosphatase 155 U/L (46-116); Anion Gap 11.8 mmol/L (3-11); BUN 11 mg/dL (7-18); Bilirubin, Total 0.4 mg/dL (0.2-1.0); CO2 24.2 mmol/L (21.0-32.0); Calcium 8.7 mg/dL (8.5-10.1); Chloride 96 mmol/L (98-107); Glucose 132 mg/dL (74-106); Potassium 3.4 mmol/L (3.5-5.1); Sodium 132 mmol/L (136-145); Total Protein 7.7 g/dL (6.4-8.2)
[2019-09-21 16:58] LABS: Troponin I < 0.05 ng/mL (<0.06)
--- NOTE | 2019-09-21 17:40 | DI.VRAD_ITS ---
PROCEDURE INFORMATION: Exam: XR Chest, 1 View Exam date and time: 09/21/2019 5:05 PM Age: 54 years old Clinical indication: Shortness of breath TECHNIQUE: Imaging protocol: XR of the chest Views: 1 view. COMPARISON: CR XR CHEST 2V PA LATERAL 04/08/2019 11:33 AM FINDINGS: Lungs: Unremarkable. No consolidation. Pleural space: Unremarkable. No pleural effusion. No pneumothorax. Heart/Mediastinum: Unremarkable. No cardiomegaly. Bones/joints: Unremarkable. IMPRESSION: No acute findings. Dictated and Authenticated by: Sonny Quiñones MD. Ordering:ANGELA Sanchez MD
[2019-09-21 17:45] LABS: D-Dimer 1991 ng/mlFEU (<500)
--- NOTE | 2019-09-21 17:45 | DI.CT_ITS ---
EXAM: CT CHEST PE CTA CLINICAL HISTORY: SOB, elevated Dimer TECHNIQUE: FINDINGS: CT angiography of the chest was performed with intravenous infusion of 75 cc Omnipaque 3. Images obt ained through the upper abdomen show unremarkable appearance of visualized portions of liver, spleen adrenals, kidneys. There are pulmonary emphysematous changes, predominantly in the upper lobes, central lobular and subp leural. There is mild septal prominence minimal peripheral reticular radiodensities in the diffuse p attern. Tracheobronchial tree appears intact. No pulmonary consolidation or mass. No evidence pulmonary embolic disease. Thoracic aorta is normal diameter there is no evidence of dis section. IMPRESSION: Pulmonary emphysematous changes. No evidence of pulmonary embolic disease.
[2019-09-21 17:47] LABS: Diff Comment Diff Reviewed
[2019-09-21] MEDS: Omnipaque 350 MG/ML 100 ML BTL IJ (18:17)
[2019-09-21] MEDS: Normal Saline Flush 10 ML SYR IVP (18:18)
--- NOTE | 2019-09-21 18:27 | DI.VRAD_ITS ---
PROCEDURE INFORMATION: Exam: CT Angiography Chest With Contrast Exam date and time: 09/21/2019 5:48 PM Age: 54 years old Clinical indication: Shortness of breath and other: Elevated d-dimer TECHNIQUE: Imaging protocol: Computed tomographic angiography of the chest with intravenous contrast. 3D rendering: MIP and/or 3D reconstructed images were created by the technologist. Contrast material: OMNIPAQUE 350; Contrast volume: 75 ml; Contrast route: IV RAC; COMPARISON: CT CHEST FOR PULMONARY EMBOLUS 09/08/2017 3:12 PM FINDINGS: Pulmonary arteries: Normal. No pulmonary emboli. Aorta: Unremarkable. No aortic aneurysm. No aortic dissection. Lungs: Scarring in the pulmonary apices. [id number] paraseptal pulmonary emphysema in the upper lobes. Scarring in the right middle lobe medial segment. Minimal peripheral patchy infiltrates in the lingula and left lower lobe (4/30). No iva consolidations. Pleural space: Unremarkable. No pneumothorax. No pleural effusion. Heart: Coronary atherosclerosis. Lymph nodes: Unremarkable. No enlarged lymph nodes. Bones/joints: Unremarkable. No acute fracture. Soft tissues: Unremarkable. IMPRESSION: No pulmonary embolism Scarring in the pulmonary apices. [id number] paraseptal pulmonary emphysema in the upper lobes. Scarring in the right middle lobe medial segment. Minimal peripheral patchy infiltrates in the lingula and left lower lobe (4/30). No iva consolidations.. Dictated and Authenticated by: Sonny Quiñones MD. Ordering:JOSEY Duran MD
[2019-09-21] MEDS: Doxycycline Hyclate 100 MG CAP PO (18:56)
[2019-09-21 19:25] LABS: Troponin I < 0.05 ng/mL (<0.06)
== END 2019-09-21 19:45 | disposition home or self-care (01) ==
PROVIDERS: Physician Assistant; Emergency Provider Physician Assistant; PCP Nurse Practitioner
DX: R06.00 Dyspnea, unspecified (principal); D72.829 Elevated white blood cell count, unspecified; R50.9 Fever, unspecified; R79.1 Abnormal coagulation profile; J41.0 Simple chronic bronchitis; J44.9 Chronic obstructive pulmonary disease, unspecified; F17.210 Nicotine dependence, cigarettes, uncomplicated; R91.8 Other nonspecific abnormal finding of lung field; I10 Essential (primary) hypertension; F10.20 Alcohol dependence, uncomplicated
CPT/HCPCS: 36415; 71275; 80053; 93005; 99285; 71045; 83735; 84484; 85025; 85379; 93010; J3490

== ENCOUNTER 2019-09-21 16:43 | Outpatient (REF) | payer MEDICAID, SELFPAY ==
[2019-09-23 10:23] LABS: COVID-19 RT-PCR Result NEGATIVE (Negative)
== END 2019-09-21 17:03 ==
LOC: NCHCN 16:43
PROVIDERS: PCP Nurse Practitioner; Visit Provider Nurse Practitioner Family
DX: Z11.59 Encounter for screening for other viral diseases (principal)
CPT/HCPCS: U0003